=== PATIENT | male | born 1955 | race Caucasian/White ===

== ENCOUNTER 2017-06-28 16:13 | Observation (INO) | payer OTHER ==
[~2017-06-28] VITALS: Ht 180.3 cm; Wt 79.4 kg
--- NOTE | 2017-06-28 16:31 | ED GI/GU/ABDOMINAL COMPLAINT ---
History of Present Illness General Chief Complaint: Abdominal Pain/Flank Pain Stated Complaint: SENT IN BY FOR APPENDICITIS Source: patient, old records Exam Limitations: no limitations Vital Signs & Intake/Output Vital Signs & Intake/Output Vital Signs Date Time Temp Pulse Resp B/P B/P Pulse O2 O2 Flow FiO2 Mean Ox Delivery Rate 06/28 1725 96 Room Air 06/28 1623 98.3 63 18 166/82 98 Room Air Allergies Coded Allergies: No Known Allergies (06/28/17) Triage Note: PATIENT TO ER SENT BY DR. BERNAL FOR +APPY ON CT SCAN TODAY. Triage Nurses Notes Reviewed? yes Onset: Abrupt Duration: day(s): (2-3), changing over time, continues in ED Timing: single episode today Quality/Severity: stabbing Severity Numbers: 6 Location: right lower quadrant Radiation: no radiation Activities at Onset: none Prior Abdominal Problems: none Past Sexual History: Unobtainable at this time Modifying Factors: Worsens With: movement, palpation. Associated Symptoms: abdominal pain HPI: 61-year-old male past medical history of hypertension, atrial fibrillation not on anticoagulation presents for evaluation of right lower quadrant abdominal pain. Patient states he developed the pain about 2 days ago and has been persistent. The pain is located in the right lower quadrant does not radiate. Described as sharp and stabbing. The pain is present with movement of the trunk and walking it resolves with laying down. No nausea vomiting or diarrhea. No recent surgery no fever. Has not taken any medicine for this. He last ate at 6 AM this morning. He has been taking ibuprofen with minimal improvement. (Zana Walton) Past History Travel History Traveled to [place] past 21 day No Medical History Any Pertinent Medical History? see below for history Cardiovascular: AFIB, hypertension, hyperlipidemia Gastrointestinal: Crohn's disease Surgical History Surgical History: non-contributory Psychosocial History Who do you live with Family Services at Home None What is your primary language Sammarinese Tobacco Use: Never used Family History Hx Contributory? No (Zana Walton) Review of Systems Review of Systems Constitutional: Reports: no symptoms. EENTM: Reports: no symptoms. Respiratory: Reports: no symptoms. Cardiovascular: Reports: no symptoms. GI: Reports: see HPI, abdominal pain. Genitourinary: Reports: no symptoms. Musculoskeletal: Reports: no symptoms. Skin: Reports: no symptoms. Neurological/Psychological: Reports: no symptoms. Hematologic/Endocrine: Reports: no symptoms. Immunologic/Allergic: Reports: no symptoms. All Other Systems: Reviewed and Negative (Zana Walton) Physical Exam Physical Exam General Appearance: well developed/nourished, no apparent distress, alert, awake Head: atraumatic, normal appearance Eyes: Bilateral: normal appearance, PERRL, EOMI. Ears, Nose, Throat, Mouth: hearing grossly normal, moist mucous membrane Neck: normal inspection, supple, full range of motion Respiratory: normal breath sounds, chest non-tender, no respiratory distress, lungs clear Cardiovascular: regular rate/rhythm, normal peripheral pulses Peripheral Pulses: 2+ radial (R), 2+ radial (L) Gastrointestinal: normal bowel sounds, soft, no organomegaly, tenderness (rlq) Back: normal inspection, normal range of motion, no vertebral tenderness Extremities: normal range of motion Neurologic/Psych: no motor/sensory deficits, awake, alert, oriented x 3, normal gait Skin: intact, normal color, warm/dry Core Measures ACS in differential dx? No Sepsis Present: No Sepsis Focused Exam Completed? No (Zana Walton) Progress Differential Diagnosis: appendicitis, biliary colic, bowel obstruction, cholecystitis, diverticulitis, ischemic bowel, inflamm bowel dis, pancreatitis, prostatitis, peptic ulcer, PUD/GERD, STD, ureterolithiasis, urinary retention, urethritis, UTI/pyelo Plan of Care: Orders Procedure Date/time Status Place in observation 06/28 2028 Active Add-on Test (ER Only) 06/28 1655 Active EKG 06/28 1655 Active Add-on Test (ER Only) 06/28 1644 Active Add-on Test (ER Only) 06/28 1632 Active URINALYSIS 06/28 1622 Complete TROPONIN LEVEL 06/28 162 Complete PARTIAL THROMBOPLASTIN TIME 06/28 1622 Complete PROTHROMBIN TIME 06/28 1622 Complete LACTIC ACID 06/28 1622 Complete C-REACTIVE PROTEIN 06/28 1622 Complete COMPREHENSIVE METABOLIC PANEL 06/28 1622 Complete CBC WITHOUT DIFFERENTIAL 06/28 1622 Complete TYPE & SCREEN (NOT X-MATCH) 06/28 1622 Complete Laboratory Tests 06/28/17 1922: Lactic Acid Cancelled 06/28/17 1659: Urine Color YEL, Urine Clarity CLEAR, Urine pH 7.0, Ur Specific [place] 1.010, Urine Protein NEG, Urine Ketones 15 H, Urine Nitrite NEG, Urine Bilirubin NEG, Urine Urobilinogen 0.2, Ur Leukocyte Esterase NEG, Ur Microscopic SEDIMENT EXAMINED, Urine RBC 5-10 H, Urine WBC 1-3 H, Ur Epithelial Cells RARE, Urine Bacteria MOD H, Urine Hemoglobin SMALL H, Urine Glucose NEG 06/28/17 1650: Anion Gap 12, Estimated GFR > 60, BUN/Creatinine Ratio 21.3, Glucose 87, Lactic Acid 1.0, Calcium 8.9, Total Bilirubin 1.4 H, AST 26, ALT 34, Alkaline Phosphatase 49, Troponin I < 0.01, C-Reactive Prot, Quant 5.5 H, Total Protein 7.1, Albumin 4.5, Globulin 2.6, Albumin/Globulin Ratio 1.7, PT 12.4, INR 1.14, APTT 30, CBC w Diff NO MAN DIFF REQ, RBC 4.63 L, MCV 85.2, MCH 28.0, MCHC 32.8 L, RDW 13.4, MPV 7.7, Gran % 66.7, Lymphocytes % 20.8, Monocytes % 9.9 H, Eosinophils % 2.3, Basophils % 0.3, Absolute Granulocytes 5.6, Absolute Lymphocytes 1.8, Absolute Monocytes 0.8 H, Absolute Eosinophils 0.2, Absolute Basophils 0 Patient seen and evaluated. He had an outpatient CT scan done today that showed evidence of acute appendicitis. Patient does have right lower quadrant tenderness. vitasl signs are stable. We'll check preop labs because surgery. Patient declines any pain medication at this time. Blood was inserted acute findings. NO white count. Spoke with Dr. COONEY from surgery. They'll be admitting the patient for observation. Patient was started on Rocephin and Flagyl. he DECLINES pain medication. Diagnostic Imaging: Viewed by Me: CT Scan. Discussed w/RAD: CT Scan. Radiology Impression: PATIENT: RONNY SAMANO PRESENT AGE: 61 PATIENT ACCOUNT NO: [id number] : 55 LOCATION: [facility].CT ORDERING PHYSICIAN: Popeye Bernal MD SERVICE DATE: 06/28/17 EXAM TYPE: CAT - CT ABD & PELVIS W IV CONTRAST EXAMINATION: CT ABDOMEN AND PELVIS WITH CONTRAST CLINICAL INFORMATION: Right lower quadrant pain for 3 days. Rebound and guarding. COMPARISON: No recent, relevant comparisons available. TECHNIQUE: Multidetector volumetric imaging was performed of the abdomen and pelvis following IV administration of 94 mL of Optiray 320 intravenous contrast. Sagittal and coronal reformatted images were obtained on the technologist's workstation. DLP: 790 mGy-cm FINDINGS: LUNG BASES: Minimal atelectasis in the visualized lung bases. LIVER, GALLBLADDER, AND BILIARY TREE: Liver has normal size and contour. Several scattered hepatic cysts, largest in the left lobe measuring 1.5 cm. Gallbladder is unremarkable. No intrahepatic or extrahepatic bile duct dilatation. PANCREAS: Unremarkable. SPLEEN: Unremarkable. ADRENAL GLANDS: Unremarkable. KIDNEYS, URETERS AND BLADDER: Kidneys are normal in size and enhance symmetrically. There are peripelvic cysts of the left kidney. A well -circumscribed 2.4 x 2.2 cm lesion at the upper pole of the right kidney has attenuation of approximately 60 Hounsfield units on these contrast-enhanced images. This could represent a hyperdense cyst (rather than a solid lesion) but it is not properly characterized on this examination. There are a few other small, bilateral hypodense renal cortical foci that are likely cysts but are too small for characterization. The ureters and urinary bladder unremarkable. GASTROINTESTINAL TRACT: Bowel loops are normal in caliber. The wall of the proximal appendix is thickened, where it arises from the cecum. More specifically, the proximal portion of the appendix measures 1.3 cm diameter. Small amount of fluid is present within the lumen of the appendix which, near its tip, measures 0.7 cm diameter. There is mild fat stranding around the base of the appendix/cecum, and a pericecal lymph node is 0.6 cm short axis dimension. Mild diverticulosis of the sigmoid colon without diverticulitis. ABDOMINAL WALL: The patient is status post left inguinal hernia repair. Superior to the level of the umbilicus, there is a midline fat-containing hernia. The fascial defect measures 1.3 cm diameter and the fat-containing hernia sac is 3.8 cm transverse, 1.9 cm AP and 2.7 cm craniocaudal. LYMPH NODES: No lymphadenopathy within the abdomen or pelvis on the basis of size criteria. VASCULAR: Atherosclerotic calcification of the abdominal aorta and iliac arteries without aneurysm. PELVIC VISCERA: Prostate gland is 4.9 cm transverse, 4.4 cm AP. No pelvic free fluid. OSSEOUS STRUCTURES: L2-L3 degenerative disc disease as manifest by loss of disc space, vacuum disc phenomenon, endplate irregularity, mild disc bulge and osteophyte formation. No suspicious osseous lesions. IMPRESSION: 1. The imaging findings are compatible with diagnosis of acute appendicitis. 2. A 2.4 x 2.2 cm lesion at the upper pole the right kidney with attenuation of 60 Hounsfield units could represent a hyperdense cyst rather than a solid mass. Recommend follow-up with renal ultrasound. 3. Small fat- containing midline abdominal wall hernia. The acute/critical test result was discussed with Dr. Bernal at 3:12 pm on 06/28/2017 and it was ascertained that the content and the importance of the findings was understood at the time of the direct communication. DICTATED BY: José Miguel Wilkerson MD DATE/TIME DICTATED:1457 LOAN ORIGINATOR:VLADIMIR DATE/TIME TRANSCRIBED:06/28/171457 CONFIDENTIAL, DO NOT COPY WITHOUT APPROPRIATE AUTHORIZATION. Initial ED EKG: normal sinus rhythm, LEFT ATRIAL ABN (Zana Walton) Departure Departure Disposition: STILL A PATIENT Condition: Stable Clinical Impression Primary Impression: Acute appendicitis Qualifiers: Acute appendicitis type: other Qualified Code: K35.89 - Other acute appendicitis Referrals: Gabe LYON,Popeye Bajwa (PCP/Family) Departure Forms: Customer Survey General Discharge Information Admission Note Spoke With: Maicol LYON,Jorge A N. Documentation of Exam: Documentation of any treatments & extenuating circumstances including Concerns Regarding Discharge (functional status, medication knowledge or non-compliance, living conditions, etc.) that warrant an admission rather than observation: [ Serial labs, IV antibiotics, surgical consult, serial abdominal exams, monitoring vital signs, IV fluids, nothing by mouth, IV pain meds] (Zana Walton) PA/BRIDGE CRANE OPERATOR Co-Sign Statement Statement: ED Attending supervision documentation- [X] I saw and evaluated the patient. I have also reviewed all the pertinent lab results and diagnostic results. I agree with the findings and the plan of care as documented in the PA's/BRIDGE CRANE OPERATOR's documentation. [X] I have reviewed the ED Record and agree with the PA's/BRIDGE CRANE OPERATOR's documentation. [] Additions or exceptions (if any) to the PAs/BRIDGE CRANE OPERATOR's note and plan are summarized below: [Patient to be placed in a surgical observation for serial exams. Patient might require an appendectomy.] (Homero LYON,Salvatore Earl)
[2017-06-28 17:12] LABS: ABSOLUTE BASOPHIL COUNT 0 /CUMM (0.0-0.2); ABSOLUTE EOSINOPHIL COUNT 0.2 /CUMM (0.0-0.7); ABSOLUTE GRANULOCYTE CT 5.6 /CUMM (1.4-6.5); ABSOLUTE LYMPH COUNT 1.8 /CUMM (1.2-3.4); ABSOLUTE MONOCYTE COUNT 0.8 /CUMM (0.10-0.60); BASOPHIL % 0.3 % (0.0-2.0); EOSINOPHIL % 2.3 % (0-5); GRANULOCYTE % 66.7 % (42.2-75.2); HEMATOCRIT 39.5 % (42-52); MEAN CORPUSCULAR HGB CONC 32.8 G/DL (33.0-37.0); MEAN CORPUSCULAR VOLUME 85.2 FL (80.0-94.0); MEAN PLATELET VOLUME 7.7 FL (7.4-10.4); PLATELET COUNT 312 /CUMM (130-400); RBC DISTRIBUTION WIDTH 13.4 % (11.5-14.5); RED BLOOD CELL CT 4.63 /CUMM (4.70-6.10); WHITE BLOOD CELL COUNT 8.4 /CUMM (4.8-10.8)
[2017-06-28 17:23] LABS: PT 12.4 SEC (9.4-12.5); PTT 30 SEC (25-37)
--- NOTE | 2017-06-28 20:05 | History & Physical Pre-Op ---
General Information and HPI History of Present Illness: To be completed Chief complaint: Otherwise healthy 61-year-old non-smoker nondiabetic with a history of right sided kidney stone, comes in with 4 days of right lower quadrant pain it started in the right lower quadrant it was not preceded by generalized abdominal discomfort or bloating, he has a history of inguinal hernias and initially thought that is what it was, there was no associated nausea fevers sweats he has been having normal bowel movements even tolerating diet in the interim pain was the worst yesterday it does not radiate he does not have it at rest it is only on movement when lifting or getting up and out of a chair or bed no dysuria no bleeding per rectum he has a remote history of Crohn' s disease in his 20s which at that time was associated with bloody diarrhea. Otherwise no changes in bowel habits weight or appetite the PFSH and ROS are reviewed there is no history of heart disease bleeding problems or problems with anesthesia. Not sure if there is a family history of Crohn's or similar disease., There is no family history of appendicitis, no Hx of abdominal surgery. Allergies/Medications Allergies: Coded Allergies: No Known Allergies (06/28/17) Home Med list Ciprofloxacin HCl (Cipro) 500 MG TABLET 1 TAB PO BID ileitis Metronidazole (Flagyl) 500 MG TABLET 1 TAB PO TID ileitis do not take with alcohol Past History Medical History Cardiovascular: AFIB, hypertension, hyperlipidemia Gastrointestinal: Crohn's disease Surgical History Pertinent Surgical History: none (no abdominal) Past Family/Social History Psychosocial History Services at Home None Review of Systems Review of Systems: Constitutional: No fever, sweats or weight loss ENMT: No sore throat Cardiovascular: No chest pain, palpitations or leg swelling Respiratory: No shortness of breath, cough, or sputum or dyspnea on exertion GI: No GERD or bleeding per rectum : No dysuria or hematuria Musculoskeletal: No new muscle weakness, bone or joint pain Skin / Breast: No jaundice, rashes or itching Psychiatric: No history of drug or alcohol abuse no depression or anxiety Hematologic / lymphatic system: No problems with excessive bleeding, bruising, or blood clots Exam & Diagnostic Data Last 24 Hrs of Vital Signs/I&O I rev Vital Signs Date Time Temp Pulse Resp B/P B/P Pulse O2 O2 Flow FiO2 Mean Ox Delivery Rate 06/28 1725 96 Room Air 06/28 1623 98.3 63 18 166/82 98 Room Air Physical Exam: Constitutional: pleasant, no acute distress, conversant Eyes: sclera anicteric ENMT: ears and nose atraumatic, moist mucous membranes, good dentition, no lip lesions Neck: Supple, trachea is midline, no cervical or supraclavicular adenopathy and no palpable thyromegaly Cardiovascular: S1, S2, no murmurs, no peripheral edema Respiratory: clear to auscultation with normal respiratory effort and no intercostal retractions GI: abdomen soft, minimal right lower quadrant tenderness to deep palpation no rebound no guarding, nondistended, no palpable hepatosplenomegaly Extremities / lymphatics: symmetrically warm, free range of motion no peripheral edema, no cervical, supraclavicular, axillary, or inguinal adenopathy Musculoskeletal: Did not evaluate gait and station, no digital cyanosis, good muscle strength and tone no atrophy, motor grossly 5 out of 5 throughout Skin: no jaundice, no rashes warm, nondiaphoretic, no areas of erythema or induration Psychiatric: mood and affect are appropriate and alert and oriented to person place and time Last 24 Hrs of Labs/Mateo: I rev Laboratory Tests 06/28/17 1922: Lactic Acid Cancelled 06/28/17 1659: Urine Color YEL, Urine Clarity CLEAR, Urine pH 7.0, Ur Specific [place] 1.010, Urine Protein NEG, Urine Ketones 15 H, Urine Nitrite NEG, Urine Bilirubin NEG, Urine Urobilinogen 0.2, Ur Leukocyte Esterase NEG, Ur Microscopic SEDIMENT EXAMINED, Urine RBC 5-10 H, Urine WBC 1-3 H, Ur Epithelial Cells RARE, Urine Bacteria MOD H, Urine Hemoglobin SMALL H, Urine Glucose NEG 06/28/17 1650: Anion Gap 12, Estimated GFR > 60, BUN/Creatinine Ratio 21.3, Glucose 87, Lactic Acid 1.0, Calcium 8.9, Total Bilirubin 1.4 H, AST 26, ALT 34, Alkaline Phosphatase 49, Troponin I < 0.01, C-Reactive Prot, Quant 5.5 H, Total Protein 7.1, Albumin 4.5, Globulin 2.6, Albumin/Globulin Ratio 1.7, PT 12.4, INR 1.14, APTT 30, CBC w Diff NO MAN DIFF REQ, RBC 4.63 L, MCV 85.2, MCH 28.0, MCHC 32.8 L, RDW 13.4, MPV 7.7, Gran % 66.7, Lymphocytes % 20.8, Monocytes % 9.9 H, Eosinophils % 2.3, Basophils % 0.3, Absolute Granulocytes 5.6, Absolute Lymphocytes 1.8, Absolute Monocytes 0.8 H, Absolute Eosinophils 0.2, Absolute Basophils 0 Assessment/Plan Assessment/Plan: Impression: RLQ pain and inflamed appendix BUT several features not typical of acute appendicitis. Except for the location of the pain, no leukocytosis or GI symptoms or fever, and by 4 days most appendicitis has progressed to phlegmon rupture or evolving abscess. Also in 2007 he had a colonoscopy showing inflammation in that area. I reviewed on PACS myself the CT scan from to, it shows most of the inflammation at the base and into the cecum the adjacent terminal ileum also has a little bit of wall thickening not as much usually the epicenter of appendicitis is distal to the base even so, we will admit him for observation given IV antibiotics reevaluate if his pain worsens, recheck labs and consult gastroenterology As Ranked By This Provider Problem List: 1. Right lower quadrant abdominal pain 2. Colitis
[2017-06-28 22:00] VITALS: BP 132/82
[2017-06-29 06:51] VITALS: BP 140/80
[2017-06-29 08:37] LABS: ABSOLUTE BASOPHIL COUNT 0 /CUMM (0.0-0.2); ABSOLUTE EOSINOPHIL COUNT 0.2 /CUMM (0.0-0.7); ABSOLUTE GRANULOCYTE CT 4.8 /CUMM (1.4-6.5); ABSOLUTE LYMPH COUNT 1.2 /CUMM (1.2-3.4); ABSOLUTE MONOCYTE COUNT 0.6 /CUMM (0.10-0.60); BASOPHIL % 0.2 % (0.0-2.0); EOSINOPHIL % 2.9 % (0-5); HEMATOCRIT 39.5 % (42-52); MEAN CORPUSCULAR HGB 28.2 PG (27.0-31.0); MEAN CORPUSCULAR HGB CONC 33.1 G/DL (33.0-37.0); MEAN CORPUSCULAR VOLUME 85.2 FL (80.0-94.0); MEAN PLATELET VOLUME 7.8 FL (7.4-10.4); PLATELET COUNT 295 /CUMM (130-400); RBC DISTRIBUTION WIDTH 13.2 % (11.5-14.5); RED BLOOD CELL CT 4.64 /CUMM (4.70-6.10); WHITE BLOOD CELL COUNT 6.9 /CUMM (4.8-10.8)
--- NOTE | 2017-06-29 08:39 | PN- General Surgery ---
See Addendum Subjective Subjective: PT IN BED, ABD PAIN MUCH BETTER TODAY. NO NAUSEA/VOMITING. TOLERATING CLEARS. REG BM THIS MORNING. NO FEVERS. Objective Vital Signs and I&Os Vital Signs Date Time Temp Pulse Resp B/P B/P Pulse O2 O2 Flow FiO2 Mean Ox Delivery Rate 06/30 803 140/80 / 0803 140/80 / 0803 140/80 / 0651 97.6 65 20 140/80 98 Room Air 06/28 2200 98.6 59 18 132/82 97 Room Air / 2051 98.6 65 16 135/74 96 Room Air 06/28 1725 96 Room Air 06/28 1623 98.3 63 18 166/82 98 Room Air Intake & Output 06/29 0000 06/28 1600 06/28 0000 Intake Total 920 1320 Output Total Balance 920 1320 Intake, IV 800 1200 Intake, Oral 120 120 Patient 175 lb Weight Weight Reported by Patient Measurement Method Physical Exam: GEN- NAD RESP- CLEAR CARDIAC- RRR ABD- ND, +BS, SOFT, TENDER IN RLQ, NO REBOUND EXT- NO EDEMA, WARM AND DRY Current Medications: Current Medications Sig/Malvin Start time Last Medication Dose Route Stop Time Status Admin Acetaminophen 650 MG Q6PRN PRN 06/28 2099 AC 06/29 PO 0803 Amlodipine Besylate 5 MG DAILY 06/29 899 AC 06/29 PO 0803 Atenolol 50 MG DAILY 06/29 899 AC 06/29 PO 0804 Ceftriaxone Sodium 1,000 MG DAILY 06/29 899 AC IV Ceftriaxone Sodium 0 .STK-MED ONE 06/28 1714 DC .ROUTE Ceftriaxone Sodium 1,000 MG ONCE ONE 06/28 1630 DC 06/28 IV 06/28 1631 1719 Dextrose/Sodium 1,000 ML .Q10H 06/28 2100 AC 06/28 Chloride IV 2129 Heparin Sodium 5,000 UNIT Q8 06/28 2200 AC 06/28 (Porcine) SC 2129 Heparin Sodium 0 .STK-MED ONE 06/28 212 DC (Porcine) .ROUTE Lisinopril 20 MG DAILY 06/29 899 AC 06/29 PO 0803 Metronidazole 500 MG IQ8 06/29 0000 AC 06/29 N/A 1 UNIT IV 0804 Metronidazole 500 MG ONCE ONE 06/28 1630 DC 06/28 N/A 1 UNIT IV 06/28 1729 1719 Morphine Sulfate 2 MG Q3P PRN 06/28 2100 AC IV Ondansetron HCl 4 MG Q8P PRN 06/28 2100 AC IV Pantoprazole Sodium 40 MG DAILY 06/29 0900 AC IV Sodium Chloride 1,000 ML BOLUS ONE 06/28 1630 DC 06/28 IV 06/28 1729 1723 Results Last 48 Hours of Labs: Laboratory Tests 06/29 06/28 06/28 0747 1922 1659 Chemistry Sodium Pending Potassium Pending Chloride Pending Carbon Dioxide Pending Anion Gap Pending BUN Pending Creatinine Pending BUN/Creatinine Ratio Pending Lactic Acid Cancelled Hematology CBC w Diff Pending WBC Pending RBC Pending Hgb Pending Hct Pending MCV Pending MCH Pending MCHC Pending RDW Pending Plt Count Pending MPV Pending Urines Urine Color (YEL,AMB,STR) YEL Urine Clarity (CLEAR) CLEAR Urine pH (5.0 - 8.0) 7.0 Ur Specific [place] (1.001 - 1.035) 1.010 Urine Protein (NEG,<30 MG/DL) NEG Urine Ketones (NEG) 15 H Urine Nitrite (NEG) NEG Urine Bilirubin (NEG) NEG Urine Urobilinogen (0.1 - 1.0 EU/dl) 0.2 Ur Leukocyte Esterase (NEG) NEG Ur Microscopic SEDIMENT EXAMINED Urine RBC (0 - 5 /HPF) 5-10 H Urine WBC (0 - 2 /HPF) 1-3 H Ur Epithelial Cells (NONE,FEW) RARE Urine Bacteria (NEG/NONE) MOD H Urine Hemoglobin (NEG) SMALL H Urine Glucose (N MG/DL) NEG 06/28 1649 Chemistry Sodium (137 - 145 mmol/L) 140 Potassium (3.5 - 5.1 mmol/L) 4.0 Chloride (98 - 107 mmol/L) 100 Carbon Dioxide (22 - 30 mmol/L) 28 Anion Gap (5 - 16) 12 BUN (9 - 20 mg/dL) 17 Creatinine (0.7 - 1.2 mg/dL) 0.8 Estimated GFR (>60 ml/min) > 60 BUN/Creatinine Ratio (7 - 25 %) 21.3 Glucose (65 - 99 mg/dL) 87 Lactic Acid (0.7 - 2.1 mmol/L) 1.0 Calcium (8.4 - 10.2 mg/dL) 8.9 Total Bilirubin (0.2 - 1.3 mg/dL) 1.4 H AST (17 - 59 U/L) 26 ALT (21 - 72 U/L) 34 Alkaline Phosphatase (< 127 U/L) 49 Troponin I (<0.11 ng/ml) < 0.01 C-Reactive Prot, Quant (<1.0 mg/dL) 5.5 H Total Protein (6.3 - 8.2 g/dL) 7.1 Albumin (3.5 - 5.0 g/dL) 4.5 Globulin (1.9 - 4.2 gm/dL) 2.6 Albumin/Globulin Ratio (1.1 - 2.2 %) 1.7 Coagulation PT (9.4 - 12.5 SEC) 12.4 INR (0.90 - 1.17) 1.14 APTT (25 - 37 SEC) 30 Hematology CBC w Diff NO MAN DIFF REQ WBC (4.8 - 10.8 /CUMM) 8.4 RBC (4.70 - 6.10 /CUMM) 4.63 L Hgb (14.0 - 18.0 G/DL) 13.0 L Hct (42 - 52 %) 39.5 L MCV (80.0 - 94.0 FL) 85.2 MCH (27.0 - 31.0 PG) 28.0 MCHC (33.0 - 37.0 G/DL) 32.8 L RDW (11.5 - 14.5 %) 13.4 Plt Count (130 - 400 /CUMM) 312 MPV (7.4 - 10.4 FL) 7.7 Gran % (42.2 - 75.2 %) 66.7 Lymphocytes % (20.5 - 51.1 %) 20.8 Monocytes % (1.7 - 9.3 %) 9.9 H Eosinophils % (0 - 5 %) 2.3 Basophils % (0.0 - 2.0 %) 0.3 Absolute Granulocytes (1.4 - 6.5 /CUMM) 5.6 Absolute Lymphocytes (1.2 - 3.4 /CUMM) 1.8 Absolute Monocytes (0.10 - 0.60 /CUMM) 0.8 H Absolute Eosinophils (0.0 - 0.7 /CUMM) 0.2 Absolute Basophils (0.0 - 0.2 /CUMM) 0 Assessment/Plan Assessment/Plan 61YO M WITH RLQ PAIN, APPENDICITIS VS CROHNS. CT SHOWS INFALMATION AT BASE OF APPENDIX AND CECUM. CURRENTLY ON ROCEPHIN AND FLAGYL. PAIN LESS TODAY. CONT ABX AWAITING AM LABS CONSIDERING GI CONSULT TODAY, MAY NEED COLONOSCOPY NPO UNTIL DECISION IS MADE FOR SURGERY OR NOT TODAY CONT IVF DVT PPAX- HSQ, ALPS OOB WILL DISCUSS WITH DR STODDARD Core Measures Venous Thromboembolism VTE Risk Factors Immobility No Mechanical VTE Prophylaxis d/t N/A MechProphylax Ordered No VTE Pharm Prophylaxis d/t NA PharmProphylax ordered
[2017-06-29 14:05] VITALS: BP 120/70
--- NOTE | 2017-06-29 14:55 | Patient Discharge Instructions ---
Discharge Instructions General Discharge Information You were seen/treated for: abdominal pain, r/o appendicitis, possible crohns related ileitis right upper pole renal cyst, incidentally seen by CT You had these procedures: conservative treatment Watch for these problems: fever>101.3, increased pain, nausea/vomiting, dizziness, shortness of breath, chest pains Diet Continue normal diet: Yes Recommended Diet: Regular Activity Full Activity/No Limits: Yes Activity Self Limited: Yes Acute Coronary Syndrome Inclusion Criteria At DC or during hospital stay patient has or had the following: ACS DIAGNOSIS No Discharge Core Measures Meds if any: Prescribed or Continued at Discharge Meds if any: NOT Prescribed or Continued at Discharge Congestive Heart Failure Inclusion Criteria At DC or during hospital stay patient has or had the following: CHF DIAGNOSIS No Discharge Core Measures Meds if any: Prescribed or Continued at Discharge Meds if any: NOT Prescribed or Continued at Discharge Cerebrovascular accident Inclusion Criteria At DC or during hospital stay patient has or had the following: CVA/TIA Diagnosis No Discharge Core Measures Meds if any: Prescribed or Continued at Discharge Meds if any: NOT Prescribed or Continued at Discharge Venous thromboembolism Inclusion Criteria VTE Diagnosis No VTE Type NONE VTE Confirmed by (Test) NONE Discharge Core Measures - Per Current guidelines, there needs to be overlap - treatment for the first 5 days of Warfarin therapy. - If discharged on Warfarin prior to 5 days of - overlap therapy, the patient will need to be - assessed for post discharge needs including - *Post discharge parental anticoagulation - *Warfarin and/or parental anticoagulation education - *Follow up date to check INR post discharge At least 5 days overlap therapy as Inpatient No Meds if any: Prescribed or Continued at Discharge Note: Overlap Therapy is Warfarin and Anticoagulant Meds if any: NOT Prescribed or Continued at Discharge
[2017-06-29] MEDS ORDERED: FLAGYL500 MG PO (15:04)
[2017-06-29] MEDS ORDERED: CIPRO500 M1 PO (15:04)
--- NOTE | 2017-06-29 17:18 | Cons- Gastroenterology ---
General Information and HPI Consulting Request Date of Consult: 06/29/17 Requested By: Maicol LYON,Jorge A Hicks Reason for Consult: 1. Abdominal Pain 2. Abnormal CT Scan of the Abdomen and Pelvis Source of Information: patient, Electronic Medical Record Exam Limitations: no limitations History of Present Illness: Mr. Robison is a 61 year old male with a remote history of Crohn's Disease. He reports that in his twenties he was diagnosed with Crohn's Disease. He had at that time chronic bloody diarrhea that was treated with steroids over a period of about 2 or 3 years. He does not know whether he had Crohn's Disease of the Small Intestine or Colon. Mr. Robison was in his usual state of health until last when he developed white lower quadrant pain which increased in severity gradually until Wednesday. He reports that he had no pain when he was laying down however when he stood up the pain was worse. He took Advil on Wednesday and by Wednesday morning he felt fine. He went to work however he started lifting pain cans and the abdominal pain returned. He had no associated nausea, vomiting, fever, or shaking chills. He had been completely well until when the pain began. He had had no premonitory symptoms and no diarrhea. He had a colonoscopy in 2007 which showed some mild ileitis and a cecal polyp without any adenomatous change. On biopsy of the ileitis he was found to have chronic and acute inflammation with surface erosion and moderate reactive atypia as well as fib were no purulent exudate. There were no crypt abscesses noted. March 2016 he had a normal H&H of 14.3 and 42.8. He went to his primary care physician who ordered a CT scan that was done at [facility] as well as laboratory studies. He had WBC of 6.9, H&H of 13.1/39.5 and platelets of 295,000. CRP was 5.5 and CMP was normal with the exception of a total bilirubin of 1.4. At [facility] he was told that he had appendicitis would need to be seen by a surgeon at [facility]. We are asked to see Mr. Robison in consultation by Dr. Jarquin for evaluation of RLQ pain and an abnormal CT Scan. The results of that CT Scan are as follows: Addendum: This patient has a history of Crohn disease. It should be noted that the fat stranding in the right lower quadrant is primarily located around the collapsed cecum and base of the appendix. The appendiceal wall is abnormally thickened at its junction with the cecum, but this could be reactive to cecal inflammation from Crohn disease. The appendiceal lumen contains some gas and fluid, and the appendix tapers in diameter as it approaches its tip. There is mild circumferential wall thickening of the terminal ileum, but no overt edema in the bowel wall or fat stranding around the ileum. The inflammatory changes in the right lower quadrant could reflect a flare of patient's inflammatory bowel disease in the cecum rather than acute appendicitis. Addendum Signed by: José Miguel Wilkerson MD 06/28/17 [id number] EXAMINATION: CT ABDOMEN AND PELVIS WITH CONTRAST CLINICAL INFORMATION: Right lower quadrant pain for 3 days. Rebound and guarding. FINDINGS: LUNG BASES: Minimal atelectasis in the visualized lung bases. LIVER, GALLBLADDER, AND BILIARY TREE: Liver has normal size and contour. Several scattered hepatic cysts, largest in the left lobe measuring 1.5 cm. Gallbladder is unremarkable. No intrahepatic or extrahepatic bile duct dilatation. PANCREAS: Unremarkable. SPLEEN: Unremarkable. ADRENAL GLANDS: Unremarkable. KIDNEYS, URETERS AND BLADDER: Kidneys are normal in size and enhance symmetrically. There are peripelvic cysts of the left kidney. A well-circumscribed 2.4 x 2.2 cm lesion at the upper pole of the right kidney has attenuation of approximately 60 Hounsfield units on these contrast-enhanced images. This could represent a hyperdense cyst (rather than a solid lesion) but it is not properly characterized on this examination. There are a few other small, bilateral hypodense renal cortical foci that are likely cysts but are too small for characterization. The ureters and urinary bladder unremarkable. GASTROINTESTINAL TRACT: Bowel loops are normal in caliber. The wall of the proximal appendix is thickened, where it arises from the cecum. More specifically, the proximal portion of the appendix measures 1.3 cm diameter. Small amount of fluid is present within the lumen of the appendix which, near its tip, measures 0.7 cm diameter. There is mild fat stranding around the base of the appendix/cecum, and a pericecal lymph node is 0.6 cm short axis dimension. Mild diverticulosis of the sigmoid colon without diverticulitis. ABDOMINAL WALL: The patient is status post left inguinal hernia repair. Superior to the level of the umbilicus, there is a midline fat-containing hernia. The fascial defect measures 1.3 cm diameter and the fat-containing hernia sac is 3.8 cm transverse, 1.9 cm AP and 2.7 cm craniocaudal. LYMPH NODES: No lymphadenopathy within the abdomen or pelvis on the basis of size criteria. VASCULAR: Atherosclerotic calcification of the abdominal aorta and iliac arteries without aneurysm. PELVIC VISCERA: Prostate gland is 4.9 cm transverse, 4.4 cm AP. No pelvic free fluid. OSSEOUS STRUCTURES: L2-L3 degenerative disc disease as manifest by loss of disc space, vacuum disc phenomenon, endplate irregularity, mild disc bulge and osteophyte formation. No suspicious osseous lesions. IMPRESSION: 1. The imaging findings are compatible with diagnosis of acute appendicitis. 2. A 2.4 x 2.2 cm lesion at the upper pole the right kidney with attenuation of 60 Hounsfield units could represent a hyperdense cyst rather than a solid mass. Recommend follow-up with renal ultrasound. 3. Small fat-containing midline abdominal wall hernia. Allergies/Medications Allergies: Coded Allergies: No Known Allergies (06/28/17) Home Med List: Ciprofloxacin HCl (Cipro) 500 MG TABLET 1 TAB PO BID ileitis Metronidazole (Flagyl) 500 MG TABLET 1 TAB PO TID ileitis do not take with alcohol Current Medications: Current Medications Sig/Malvin Start time Last Medication Dose Route Stop Time Status Admin Acetaminophen 650 MG .STK-MED ONE 06/29 0800 DC PO 06/29 0801 Acetaminophen 650 MG Q6PRN PRN 06/28 2100 AC 06/29 PO 0803 Amlodipine Besylate 5 MG DAILY 06/29 09 AC 06/29 PO 0803 Atenolol 50 MG DAILY 06/29 0900 AC 05 PO 0804 Ceftriaxone Sodium 1,000 MG DAILY@1700 /08 1700 AC /08 IV 1658 Ceftriaxone Sodium 1,000 MG DAILY 06/29 09 DC IV Ceftriaxone Sodium 0 .STK-MED ONE 06/28 1714 DC .ROUTE Dextrose/Sodium 1,000 ML .Q10H 06/28 2100 DC 06/28 Chloride IV 2129 Heparin Sodium 5,000 UNIT Q8 06/28 2200 AC 06/28 (Porcine) SC 212 Heparin Sodium 0 .STK-MED ONE 06/28 2125 DC (Porcine) .ROUTE Lisinopril 20 MG DAILY 06/29 899 AC 06/29 PO 0803 Metronidazole 500 MG IQ8 06/29 0000 AC 06/29 N/A 1 UNIT IV 1658 Metronidazole 500 MG ONCE ONE 06/28 1630 DC 06/28 N/A 1 UNIT IV 06/28 1729 1719 Morphine Sulfate 2 MG Q3P PRN 06/28 2100 AC IV Ondansetron HCl 4 MG Q8P PRN 06/28 2100 AC IV Pantoprazole Sodium 40 MG DAILY 06/29 899 AC 06/29 IV 1658 Sodium Chloride 1,000 ML BOLUS ONE 06/28 1630 DC 06/28 IV 06/28 1729 1723 Past History Travel History Traveled to [place] past 21 day No Medical History Blood Transfusion Hx: Yes Neurological: NONE EENT: NONE Cardiovascular: AFIB, hypertension, hyperlipidemia Respiratory: NONE Gastrointestinal: Crohn's disease Hepatic: NONE Renal: NONE Musculoskeletal: HERNIA-UMBILICAL Psychiatric: NONE Endocrine: NONE Blood Disorders: NONE Cancer(s): NONE 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 Cardiovascular: Reports: no symptoms. Respiratory: Reports: no symptoms. GI: Reports: see HPI. Genitourinary: Reports: no symptoms. Musculoskeletal: Reports: no symptoms. Skin: Reports: no symptoms. Neurological/Psychological: Reports: no symptoms. Hematologic/Endocrine: Reports: no symptoms. Exam & Diagnostic Data Vital Signs and I&O Vital Signs Date Time Temp Pulse Resp B/P B/P Pulse O2 O2 Flow FiO2 Mean Ox Delivery Rate 06/29 1405 98.1 62 20 120/70 96 Room Air 06/29 0804 140/80 06/29 0803 140/80 06/29 0803 140/80 06/29 0651 97.6 65 20 140/80 98 Room Air 06/28 2200 98.6 59 18 132/82 97 Room Air 06/28 2051 98.6 65 16 135/74 96 Room Air 06/28 1725 96 Room Air Intake & Output 06/29 1600 06/29 0400 06/28 1600 06/28 0400 06/27 1600 06/27 0400 Intake Total 3020 1320 Output Total Balance 3020 1320 Intake, IV 1000 1200 Intake, Oral 2020 120 Number 1 Bowel Movements Patient 175 lb Weight Weight Reported by Patient Measurement Method Physical Exam General Appearance: well developed/nourished, no apparent distress, alert, awake , anxious, comfortable Head: atraumatic, normal appearance Eyes: Bilateral: normal appearance. Ears, Nose, Throat: hearing grossly normal Neck: supple, full range of motion Respiratory: normal breath sounds, lungs clear Cardiovascular: regular rate/rhythm, normal S1 and S2 without rub, murmur, or gallop. Gastrointestinal: normal bowel sounds, soft, non-tender, no organomegaly, no rebound or guarding Extremities: no edema Neurologic/Psych: awake, alert, oriented x 3 Cranial Nerves: cranial nerves II through XII are grossly intact Skin: intact, normal color Results Pertinent Lab Results: Laboratory Tests 06/29 06/28 0747 1922 Chemistry Sodium (137 - 145 mmol/L) 140 Potassium (3.5 - 5.1 mmol/L) 4.4 Chloride (98 - 107 mmol/L) 102 Carbon Dioxide (22 - 30 mmol/L) 27 Anion Gap (5 - 16) 11 BUN (9 - 20 mg/dL) 12 Creatinine (0.7 - 1.2 mg/dL) 0.8 Estimated GFR (>60 ml/min) > 60 BUN/Creatinine Ratio (7 - 25 %) 15.0 Lactic Acid Cancelled Hematology CBC w Diff NO MAN DIFF REQ WBC (4.8 - 10.8 /CUMM) 6.9 RBC (4.70 - 6.10 /CUMM) 4.64 L Hgb (14.0 - 18.0 G/DL) 13.1 L Hct (42 - 52 %) 39.5 L MCV (80.0 - 94.0 FL) 85.2 MCH (27.0 - 31.0 PG) 28.2 MCHC (33.0 - 37.0 G/DL) 33.1 RDW (11.5 - 14.5 %) 13.2 Plt Count (130 - 400 /CUMM) 295 MPV (7.4 - 10.4 FL) 7.8 Gran % (42.2 - 75.2 %) 70.0 Lymphocytes % (20.5 - 51.1 %) 17.7 L Monocytes % (1.7 - 9.3 %) 9.2 Eosinophils % (0 - 5 %) 2.9 Basophils % (0.0 - 2.0 %) 0.2 Absolute Granulocytes (1.4 - 6.5 /CUMM) 4.8 Absolute Lymphocytes (1.2 - 3.4 /CUMM) 1.2 Absolute Monocytes (0.10 - 0.60 /CUMM) 0.6 Absolute Eosinophils (0.0 - 0.7 /CUMM) 0.2 Absolute Basophils (0.0 - 0.2 /CUMM) 0 06/28 06/28 1659 1650 Chemistry Sodium (137 - 145 mmol/L) 140 Potassium (3.5 - 5.1 mmol/L) 4.0 Chloride (98 - 107 mmol/L) 100 Carbon Dioxide (22 - 30 mmol/L) 28 Anion Gap (5 - 16) 12 BUN (9 - 20 mg/dL) 17 Creatinine (0.7 - 1.2 mg/dL) 0.8 Estimated GFR (>60 ml/min) > 60 BUN/Creatinine Ratio (7 - 25 %) 21.3 Glucose (65 - 99 mg/dL) 87 Lactic Acid (0.7 - 2.1 mmol/L) 1.0 Calcium (8.4 - 10.2 mg/dL) 8.9 Total Bilirubin (0.2 - 1.3 mg/dL) 1.4 H AST (17 - 59 U/L) 26 ALT (21 - 72 U/L) 34 Alkaline Phosphatase (< 127 U/L) 49 Troponin I (<0.11 ng/ml) < 0.01 C-Reactive Prot, Quant (<1.0 mg/dL) 5.5 H Total Protein (6.3 - 8.2 g/dL) 7.1 Albumin (3.5 - 5.0 g/dL) 4.5 Globulin (1.9 - 4.2 gm/dL) 2.6 Albumin/Globulin Ratio (1.1 - 2.2 %) 1.7 Coagulation PT (9.4 - 12.5 SEC) 12.4 INR (0.90 - 1.17) 1.14 APTT (25 - 37 SEC) 30 Hematology CBC w Diff NO MAN DIFF REQ WBC (4.8 - 10.8 /CUMM) 8.4 RBC (4.70 - 6.10 /CUMM) 4.63 L Hgb (14.0 - 18.0 G/DL) 13.0 L Hct (42 - 52 %) 39.5 L MCV (80.0 - 94.0 FL) 85.2 MCH (27.0 - 31.0 PG) 28.0 MCHC (33.0 - 37.0 G/DL) 32.8 L RDW (11.5 - 14.5 %) 13.4 Plt Count (130 - 400 /CUMM) 312 MPV (7.4 - 10.4 FL) 7.7 Gran % (42.2 - 75.2 %) 66.7 Lymphocytes % (20.5 - 51.1 %) 20.8 Monocytes % (1.7 - 9.3 %) 9.9 H Eosinophils % (0 - 5 %) 2.3 Basophils % (0.0 - 2.0 %) 0.3 Absolute Granulocytes (1.4 - 6.5 /CUMM) 5.6 Absolute Lymphocytes (1.2 - 3.4 /CUMM) 1.8 Absolute Monocytes (0.10 - 0.60 /CUMM) 0.8 H Absolute Eosinophils (0.0 - 0.7 /CUMM) 0.2 Absolute Basophils (0.0 - 0.2 /CUMM) 0 Urines Urine Color (YEL,AMB,STR) YEL Urine Clarity (CLEAR) CLEAR Urine pH (5.0 - 8.0) 7.0 Ur Specific [place] (1.001 - 1.035) 1.010 Urine Protein (NEG,<30 MG/DL) NEG Urine Ketones (NEG) 15 H Urine Nitrite (NEG) NEG Urine Bilirubin (NEG) NEG Urine Urobilinogen (0.1 - 1.0 EU/dl) 0.2 Ur Leukocyte Esterase (NEG) NEG Ur Microscopic SEDIMENT EXAMINED Urine RBC (0 - 5 /HPF) 5-10 H Urine WBC (0 - 2 /HPF) 1-3 H Ur Epithelial Cells (NONE,FEW) RARE Urine Bacteria (NEG/NONE) MOD H Urine Hemoglobin (NEG) SMALL H Urine Glucose (N MG/DL) NEG Assessment/Plan Assessment/Recommendations: ASSESSMENT: 1. Abnormal CT scan. There is thickening of the cecum with mild confidential thickening of the terminal ileum. This is certainly suggestive of Crohn's disease. An given appearance of the appendix less consistent with acute appendicitis 2. Remote history of Crohn's disease 3. Hypertension 4. Hyperlipidemia 5. Right lower quadrant pain Patient's onset of symptoms are somewhat atypical for Crohn's disease. In addition given his history of a 40 year remission as well as lack of premonitory GI symptoms prior to this raises some concern regarding etiology of current CT findings. RECOMMENDATIONS: 1. I've had a long discussion with the patient and his regarding possible etiologies for his right lower quadrant pain. I have explained that they may need further workup in order to arrive at an accurate diagnosis. I've explained to them that he may need a colonoscopy as well as possible MR enterography or small bowel follow-through. I've explained to them that I will not be available tomorrow and that they will be seen by Dr. Mane Cormier was wardsperson in the hospital. 2. I discussed this with Jorge A Milian MD and the surgical PA. 3. Patient will remain in the hospital overnight on a clear liquid diet. 4. He will maintain on IV antibiotics 5. Dr. Cormier will review CT findings with radiology. We will consider either outpatient workup, colonoscopy during this admission, small bowel follow- through, or other workup pending his review of patient's radiologic studies. All questions were answered to the patient and his 's satisfaction. Copies To: Gabe LYON,Popeye Bajwa Consult Acknowledgment - Thank you for your consult request.
[2017-06-29 23:11] VITALS: BP 121/68
[2017-06-30 07:18] VITALS: BP 138/83
[2017-06-30 08:42] LABS: ABSOLUTE BASOPHIL COUNT 0 /CUMM (0.0-0.2); ABSOLUTE EOSINOPHIL COUNT 0.3 /CUMM (0.0-0.7); ABSOLUTE GRANULOCYTE CT 4.1 /CUMM (1.4-6.5); ABSOLUTE LYMPH COUNT 1.1 /CUMM (1.2-3.4); ABSOLUTE MONOCYTE COUNT 0.6 /CUMM (0.10-0.60); BASOPHIL % 0.6 % (0.0-2.0); EOSINOPHIL % 4.2 % (0-5); GRANULOCYTE % 67.7 % (42.2-75.2); HEMATOCRIT 41.8 % (42-52); MEAN CORPUSCULAR HGB 27.7 PG (27.0-31.0); MEAN CORPUSCULAR HGB CONC 32.6 G/DL (33.0-37.0); MEAN CORPUSCULAR VOLUME 84.9 FL (80.0-94.0); MEAN PLATELET VOLUME 7.9 FL (7.4-10.4); PLATELET COUNT 317 /CUMM (130-400); RBC DISTRIBUTION WIDTH 13.3 % (11.5-14.5); RED BLOOD CELL CT 4.93 /CUMM (4.70-6.10); WHITE BLOOD CELL COUNT 6.1 /CUMM (4.8-10.8)
[2017-06-30 08:53] VITALS: BP 136/78
[2017-06-30] MEDS ORDERED: CIPRO500 M1 PO (10:32)
--- NOTE | 2017-06-30 17:00 | Discharge Summary ---
Visit Information Visit Dates Admission Date: 06/28/17 Discharge Date: 06/30/17 Hospital Course Course Attending Physician: Maicol LYON,Jorge A Hicks Primary Care Physician: Gabe LYON,Popeye Bajwa Hospital Course: Patient admitted 2 days ago with right lower quadrant pain inflammatory changes but the presentation labs history signs and symptoms were not typical of acute appendicitis only the location of the pain which was already improved so we started IV antibiotics and consult to gastroenterology especially since he's had a history of inflammation there before and a remote history of Crohn's disease. Otherwise his pain completely resolved the next day we started him on diet there were no fevers no sweats no nausea no vomiting and overnight this morning no new complaints he's moving his bowels no diarrhea no bleeding per rectum. Vital signs reviewed temperature 98.2 blood pressure 136/78 pulse 68 respirations 20 Constitutional: no acute distress no pain Eyes: sclera anicteric ENMT: moist mucous membranes Cardiovascular: S1-S2 no murmurs no peripheral edema Respiratory: clear to auscultation with normal respiratory effort and no intercostal retractions GI: abdomen soft nontender nondistended Extremities / lymphatics: free range of motion no peripheral edema Skin: no jaundice no rashes warm, nondiaphoretic Psychiatric: mood and affect are appropriate and alert and oriented to person place and time Review today's labs are in keeping with the previous, white count is 6 hemoglobin 13 lytes are okay Discussed with gastroenterology the plan is continue antibiotics as an outpatient and follow-up for colonoscopy in at least 6 weeks, watch for recurrent symptoms. I really doubt appendicitis tried to reassure them among all the others, a particularly unusual aspect to this is that despite the amount of inflammation seen on the CT scan he hardly had any pain and no fevers or leukocytosis. See me next week in the office. Allergies: Coded Allergies: No Known Allergies (06/28/17) Disposition Summary Disposition Principal Diagnosis: Right lower quadrant pain, colitis Additional Diagnosis: None acute Discharge Disposition: home or self care Discharge Instructions General Discharge Information Code Status: Full Code Patient's Diet: Resume usual resume usual Patient's Activity: No heavy lifting Follow-Up Instructions/Appts: Next week in the office or sooner as issues arise Medications at Discharge Discharge Medications: Start taking the following new medications: Ciprofloxacin HCl (Cipro) 500 MG TABLET 1 Tablet ORAL TWICE DAILY Qty = 20 No Refills Instructions: . Comments: NOT GIVEN IN HOSPITAL Metronidazole (Flagyl) 500 MG TABLET 1 Tablet ORAL THREE TIMES DAILY Qty = 30 No Refills Instructions: do not take with alcohol Comments: LAST GIVEN 06/30/17 @ 6132 Copies To: Maicol LYON,Jorge A Hicks
== END 2017-06-30 11:42 ==
LOC: ERH 16:13 → ERHI 20:29 → 2NB 20:29 → ENRESERV 21:05 → 2NB 21:57 → ENPENDDIS 06-30 10:51 → 2NB 06-30 11:42
PROVIDERS: Physician Assistant; Physician Assistant Surgical
DX: R10.31 Right lower quadrant pain (principal); I48.91 Unspecified atrial fibrillation; E78.5 Hyperlipidemia, unspecified; K50.90 Crohn's disease, unspecified, without complications
CPT/HCPCS: 6040; 36415; 36592; 81001; 82436; 93005; 93010; 96372; 96374; 96375; 96376; G0378; J0696; J1644; J7042

== ENCOUNTER 2017-07-02 09:27 | Inpatient (IN) | payer OTHER ==
[~2017-07-02] VITALS: Ht 180.3 cm; Wt 75.8 kg
[~2017-07-02 09:27] MED LIST: CIPRO500 M1 PO; FLAGYL500 MG PO
[2017-07-02] MEDS ORDERED: ASPIRIN81 M4 PO (09:47)
[2017-07-02] MEDS ORDERED: AMLODIPINE BESYL5 M1 PO (09:47)
[2017-07-02] MEDS ORDERED: OMEPRAZOLE20 M2 PO (09:48)
[2017-07-02] MEDS ORDERED: ATENOLOL50 M1 PO (09:48)
[2017-07-02] MEDS ORDERED: PRAVASTATIN SOD40 M2 PO (09:49)
[2017-07-02] MEDS ORDERED: LISINOPRIL20 M1 PO (09:49)
--- NOTE | 2017-07-02 10:27 | ED GI/GU/ABDOMINAL COMPLAINT ---
History of Present Illness General Chief Complaint: General Adult Stated Complaint: ?GI BLEED Source: patient, family, old records Exam Limitations: no limitations Vital Signs & Intake/Output Vital Signs & Intake/Output Vital Signs Date Time Temp Pulse Resp B/P B/P Pulse O2 O2 Flow FiO2 Mean Ox Delivery Rate 07/03 0800 98 Room Air 07/03 0800 97.7 78 20 146/72 98 Room Air 07/03 0400 96 Room Air 07/03 0000 97.7 90 18 130/80 97 Room Air 07/03 0000 97 Room Air 07/02 2207 96 Room Air 07/02 2102 98.6 82 18 161/76 99 Room Air 07/02 2021 81 18 144/74 97 Room Air 07/02 2016 82 18 140/71 97 Room Air 07/02 1923 98.4 94 18 177/91 97 Room Air 07/02 1837 87 171/82 07/02 1700 98.7 72 20 160/77 96 Room Air ED Intake and Output 07/03 0000 07/02 1200 Intake Total 1300 Output Total 375 Balance 925 Intake, IV 1300 Output, Urine 375 Patient 167 lb 175 lb Weight Weight Bed scale Reported by Patient Measurement Method Allergies Coded Allergies: No Known Allergies (06/28/17) Reconcile Medications Amlodipine Besylate 5 MG TABLET 1 TAB PO DAILY HEART (Reported) Aspirin (Aspirin*) 81 MG TAB.CHEW 1 TAB PO DAILY HEART HEALTH (Reported) Atenolol 50 MG TABLET 1 TAB PO DAILY HEART (Reported) Ciprofloxacin HCl (Cipro) 500 MG TABLET 1 TAB PO BID ileitis . Lisinopril 20 MG TABLET 1 TAB PO DAILY HEART (Reported) Metronidazole (Flagyl) 500 MG TABLET 1 TAB PO TID ileitis do not take with alcohol Omeprazole 20 MG CAPSULE.DR 1 CAP PO DAILY GI (Reported) Pravastatin Sodium 40 MG TABLET 1 TAB PO QPM CHOLESTEROL (Reported) Triage Note: 61 Y/O MALE C/O "GI BLEED". STATES HE WAS ADMITTED TO HOSPITAL LAST WEEK, "THEY THOUGHT IT WAS APPENDICTIS .. I WAS ADMITTED AND GOT ANTIBIOTICS AND HAD SURGICAL AND GI CONSULT". PT STATES HE WAS D/[facility] ON WEDNESDAY AND "FELT GOOD". SINCE WAKING THIS MORNING, HAS HAD 4 EPISODES OF "BRIGHT RED BLOOD" IN TOILET. PT DENIES PAIN. C/O "QUEASY" FEELING IN STOMACH. AFEBRILE. TAKEN TO ROOM 1 FOR EVAL Triage Nurses Notes Reviewed? yes Onset: Abrupt Duration: hour(s):, continues in ED, intermittent Timing: multiple episodes today HPI: Patient presents for evaluation of an episode of bright red and dark red rectal bleeding that began abruptly this morning. Patient was seen a few days ago for an episode of right lower quadrant abdominal pain. It was initially thought that he might have acute appendicitis. However there was also associated cecal inflammation so patient was treated conservatively. Although he began feeling better on antibiotics he then had an onset of rectal bleeding. Past History Travel History Traveled to [place] past 21 day No Medical History Any Pertinent Medical History? 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 No Review of Systems Review of Systems Constitutional: Reports: no symptoms. EENTM: Reports: no symptoms. Respiratory: Reports: no symptoms. Cardiovascular: Reports: no symptoms. GI: Reports: see HPI. Genitourinary: Reports: no symptoms. Musculoskeletal: Reports: no symptoms. Skin: Reports: no symptoms. Neurological/Psychological: Reports: no symptoms. Hematologic/Endocrine: Reports: no symptoms. Immunologic/Allergic: Reports: no symptoms. All Other Systems: Reviewed and Negative Physical Exam Physical Exam Gastrointestinal: SEE BELOW Comments: Gen.: Well-nourished, well-developed, no acute respiratory distress. Head: Normocephalic, atraumatic. Eyes: Normal inspection bilaterally Ears: Normal inspection bilaterally Nose: Normal inspection Throat/mouth : Moist mucosa Neck: Supple, full range of motion, no goiter Heart: Regular rate and rhythm, no murmurs rubs or gallops Lungs: Clear to auscultation bilaterally with normal air entry Chest: Nontender Back: Normal range of motion Abdomen: Soft, nontender, nondistended, normal bowel sounds Extremities: Normal range of motion grossly, equal radial pulses, no cyanosis clubbing or edema Neurologic: Cranial nerves grossly intact, speech is clear Skin: warm and dry with good color Psychiatric: Calm, cooperative, no apparent delusions or hallucinations Rectal exam: No stool in the vault but residue tested strongly heme positive no masses Core Measures ACS in differential dx? No Sepsis Present: No Sepsis Focused Exam Completed? No Progress Differential Diagnosis: upper GI bleed, lower GI bleed, diverticular bleed, Crohn's disease, ulcerative colitis Plan of Care: Orders Procedure Date/time Status Regular Diet 07/03 L Active Nothing by Mouth 07/03 B Complete ICU LAB BUNDLE 07/03 0500 Complete HIGH SENSITIVITY CRP 07/03 0500 Complete HEPATIC FUNCTION PANEL 07/03 0500 Complete WESTERGREN SED RATE 07/03 0500 Complete CBC WITHOUT DIFFERENTIAL 07/03 0500 Complete HEPATITIS PANEL 07/03 0015 Complete ICU LAB BUNDLE 07/03 0007 Complete Lab Add-on Test 07/03 0004 Active CBC WITHOUT DIFFERENTIAL 07/03 0000 Complete Transfer patient to 07/03 UNK Active Transfer patient to 07/03 UNK Active Lab Add-on Test 07/03 UNK Active Pathway - chart 07/02 2214 Active Wound Care/Dressing 07/03 2203 Active Weight 07/03 2203 Complete VTE Mechanical Prophylaxis 07/03 2203 Active Vital Signs 07/03 2203 Active Turn and Reposition 07/03 2203 Complete Drains/Tubes 07/03 2203 Active Teach/Educate 07/03 2203 Active Skin Integrity Protocol 07/03 2203 Active Skin/Pressure Ulcer Assess (Sk 07/03 2203 Active Precautions 07/03 2203 Active Pain Treatment and Response 07/03 2203 Active Nutritional Intake, Monitor 07/03 2203 Active Isolation 07/03 2203 Active CIWA 07/03 2203 Active Patient Care Conference 07/03 2203 Active Activity/Ambulation 07/03 2203 Active FingerStick- Glucose 07/02 2056 Complete LEUKOCYTE POOR (PACKED CELLS) 07/02 2053 Active VRE ACTIVE SURVIELLANCE 07/02 2032 Active ACTIVE SURVEILLANCE NARES 07/02 2032 Active EKG 07/03 2019 Active TROPONIN LEVEL 07/02 2014 Complete CBC WITHOUT DIFFERENTIAL 07/02 2014 Complete BASIC ELECTROLYTES PLUS BUN&CR 07/02 2014 Complete Pathway - chart 07/02 1926 Active Patient Data 07/02 1926 Active Code Status 07/02 1926 Active Patient Data 07/03 1915 Active Patient Data 07/02 1857 Active CBC WITHOUT DIFFERENTIAL 07/02 1713 Complete BASIC METABOLIC PANEL 07/02 1713 Complete Misc Message 07/02 1645 Active ED Holding Orders 07/02 1645 Active Admit to inpatient 07/02 1645 Active Vital Signs 07/02 1645 Active Code Status 07/02 1645 Complete TOTAL IRON BINDING CAPACITY 07/02 1024 Complete LACTIC ACID 07/02 1024 Complete FERRITIN 07/02 1024 Complete SERUM IRON 07/02 1024 Complete ANTINUCLEAR ANTIBODY 07/02 1024 Active Intake & Output 07/02 1008 Active Lab Add-on Test 07/02 UNK Active VTE Mechanical Prophylaxis 07/02 UNK Active Vital Signs 07/02 UNK Active Intake & Output 07/02 UNK Active Activity/Ambulation 07/02 UNK Active EKG 07/02 UNK Active Current Medications Sig/Malvin Start time Last Medication Dose Stop Time Status Admin Pravastatin Sodium 40 MG 1700 07/03 1700 AC (Pravachol) Ciprofloxacin 400 MG Q12 07/03 0900 AC 07/03 (Cipro) 0952 Dextrose/Water 200 ML (D5W) Pantoprazole Sodium 40 MG DAILY 07/03 0900 AC 07/03 (Protonix) 0952 Metronidazole 500 MG IQ8 07/03 0000 AC 07/03 (Flagyl) 0741 N/A 1 UNIT (No Carrier) Laboratory Tests 07/03/17 0842: Hepatitis A IgM Ab Cancelled, Hep Bs Antigen Cancelled, Hep B Core IgM Ab Conf Cancelled, Hepatitis C Antibody Cancelled 07/03/17 0500: Anion Gap 12, Estimated GFR > 60, Glucose 112 H, Calcium 8.0 L, Phosphorus 3.5 , Magnesium 1.9, Total Bilirubin 0.7, Direct Bilirubin 0, AST 82 H, ALT 106 H, Alkaline Phosphatase 37, C-React Prot High Sens 5.3 H, Total Protein 5.9 L, Albumin 3.4 L, CBC w Diff NO MAN DIFF REQ, RBC 3.75 L, MCV 84.6, MCH 27.9, MCHC 33.0, RDW 13.1, MPV 7.2 L, Gran % 77.5 H, Lymphocytes % 12.9 L, Monocytes % 8.3, Eosinophils % 0.9, Basophils % 0.4, Absolute Granulocytes 6.7 H, Absolute Lymphocytes 1.1 L, Absolute Monocytes 0.7 H, Absolute Eosinophils 0.1, Absolute Basophils 0, ESR Westergren 12 H 07/03/17 0015: Anion Gap 9, Estimated GFR > 60, Glucose 114 H, Calcium 8.0 L, Phosphorus 3.4, Magnesium 1.9, Total Bilirubin 0.7, AST 86 H, ALT 111 H, Albumin 3.4 L, CBC w Diff NO MAN DIFF REQ, RBC 3.93 L, MCV 84.2, MCH 28.7, MCHC 34.1, RDW 13.2, MPV 7.6, Gran % 86.2 H, Lymphocytes % 8.2 L, Monocytes % 4.7, Eosinophils % 0.5, Basophils % 0.4, Absolute Granulocytes 9.9 H, Absolute Lymphocytes 0.9 L, Absolute Monocytes 0.5, Absolute Eosinophils 0.1, Absolute Basophils 0, Hepatitis A IgM Ab NONREACTIVE, Hep Bs Antigen NONREACTIVE, Hep B Core IgM Ab Conf NONREACTIVE, Hepatitis C Antibody NONREACTIVE 07/02/170: CBC w Diff Cancelled, WBC Cancelled, RBC Cancelled, Hgb Cancelled, Hct Cancelled , MCV Cancelled, MCH Cancelled, MCHC Cancelled, RDW Cancelled, Plt Count Cancelled, MPV Cancelled 07/02/172020: Anion Gap 10, Estimated GFR > 60, BUN/Creatinine Ratio 18.8, Troponin I < 0.01, CBC w Diff NO MAN DIFF REQ, RBC 4.14 L, MCV 84.5, MCH 28.1, MCHC 33.2, RDW 13.3 , MPV 7.3 L, Gran % 66.6, Lymphocytes % 21.1, Monocytes % 10.0 H, Eosinophils % 1.8, Basophils % 0.5, Absolute Granulocytes 9.3 H, Absolute Lymphocytes 3.0, Absolute Monocytes 1.4 H, Absolute Eosinophils 0.2, Absolute Basophils 0.1 07/02/17 1720: Anion Gap 11, Estimated GFR > 60, BUN/Creatinine Ratio 17.5, Glucose 93, Calcium 8.8, CBC w Diff NO MAN DIFF REQ, RBC 4.76, MCV 85.4, MCH 28.0, MCHC 32.8 L, RDW 13.5, MPV 7.4, Gran % 67.1, Lymphocytes % 19.3 L, Monocytes % 10.2 H, Eosinophils % 2.6, Basophils % 0.8, Absolute Granulocytes 5.3, Absolute Lymphocytes 1.5, Absolute Monocytes 0.8 H, Absolute Eosinophils 0.2, Absolute Basophils 0.1, Ref Lab Test Result Pending Microbiology 07/02 2129 UPPER RESP: Surveillance Culture - RECD 07/02 2129 GI: Surveillance Culture - RECD Initial ED EKG: none Comments: 07/02/2017 12:02:08 PM D/W DR GUERRA WHO REVIEWED HX. SUGGESTS IMODIUM, PENTASA 1GM QID. CHECK STOOL CXS. OUTPT COLONSCOPY. 07/02/2017 1:03:18 PM awaiting call back from Jogre A Milian MD. I have updated the patient and on Dr. Jacobson's recommendations. 07/02/2017 3:30:39 PM I have repeatedly attempted to contact either Jorge A Milian MD or Dr. Gibbons but have been unable given their busy OR schedule. At this point we will give Chuck his Cipro and Flagyl and clear liquids as his fears his diarrhea will come back should he begin taking PO again. Patient's case discussed with Dr. Sanderson. Departure Departure Disposition: HOME OR SELF CARE Condition: Stable Clinical Impression Primary Impression: Colitis Referrals: Gabe LYON,Popeye Bajwa (PCP/Family) Additional Instructions: Continue the Cipro and Flagyl. Consider Imodium to help with the diarrhea. Follow-up with Dr. Cormier (GI specialist) for outpatient colonoscopy as soon as possible. Return if any concerns or sudden worsening. Departure Forms: Customer Survey General Discharge Information Admission Note Spoke With: Kin LYON,[facility] Documentation of Exam: Documentation of any treatments & extenuating circumstances including Concerns Regarding Discharge (functional status, medication knowledge or non-compliance, living conditions, etc.) that warrant an admission rather than observation: Patient has experienced multiple episodes of bloody diarrhea, the etiology of which is somewhat unclear at this point (possibilities would include Crohn's disease, ulcerative colitis, diverticular bleeding/lower GI bleed, upper GI bleed). Given the ongoing episodes of bloody diarrhea I do not feel this patient is a good candidate for outpatient management. I feel his blood counts will begin to decline and he is at ongoing risk of hemorrhage, symptomatic anemia and mortality. In addition I feel he would be incapable of compliance with outpatient management given his symptoms. He would likely return in worse clinical condition. I believe he requires hospitalization for serial hematocrit and hemoglobin determinations along with monitoring of his intake and output ( including blood per rectum). He should also have GI consultation and surgical consultation. Stool cultures should be followed and treatment adjusted accordingly. Colonoscopy should be considered. I feel this patient will require a multiple day hospitalization. Critical Care Note Critical Care Note Critical Care Time: 30-74 min
[2017-07-02 10:43] LABS: ABSOLUTE BASOPHIL COUNT 0 /CUMM (0.0-0.2); ABSOLUTE EOSINOPHIL COUNT 0.2 /CUMM (0.0-0.7); ABSOLUTE GRANULOCYTE CT 4.8 /CUMM (1.4-6.5); ABSOLUTE LYMPH COUNT 1.1 /CUMM (1.2-3.4); ABSOLUTE MONOCYTE COUNT 0.7 /CUMM (0.10-0.60); BASOPHIL % 0.3 % (0.0-2.0); EOSINOPHIL % 2.2 % (0-5); HEMATOCRIT 42.5 % (42-52); MEAN CORPUSCULAR HGB 26.3 PG (27.0-31.0); MEAN CORPUSCULAR HGB CONC 31.1 G/DL (33.0-37.0); MEAN CORPUSCULAR VOLUME 84.8 FL (80.0-94.0); MEAN PLATELET VOLUME 7.6 FL (7.4-10.4); PLATELET COUNT 356 /CUMM (130-400); RBC DISTRIBUTION WIDTH 13.1 % (11.5-14.5); RED BLOOD CELL CT 5.02 /CUMM (4.70-6.10); WHITE BLOOD CELL COUNT 6.8 /CUMM (4.8-10.8)
[2017-07-02 10:52] LABS: PT 14.4 SEC (9.4-12.5); PTT 31 SEC (25-37)
[2017-07-02 17:34] LABS: ABSOLUTE BASOPHIL COUNT 0.1 /CUMM (0.0-0.2); ABSOLUTE EOSINOPHIL COUNT 0.2 /CUMM (0.0-0.7); ABSOLUTE GRANULOCYTE CT 5.3 /CUMM (1.4-6.5); ABSOLUTE LYMPH COUNT 1.5 /CUMM (1.2-3.4); ABSOLUTE MONOCYTE COUNT 0.8 /CUMM (0.10-0.60); BASOPHIL % 0.8 % (0.0-2.0); EOSINOPHIL % 2.6 % (0-5); GRANULOCYTE % 67.1 % (42.2-75.2); HEMATOCRIT 40.6 % (42-52); MEAN CORPUSCULAR HGB CONC 32.8 G/DL (33.0-37.0); MEAN CORPUSCULAR VOLUME 85.4 FL (80.0-94.0); MEAN PLATELET VOLUME 7.4 FL (7.4-10.4); PLATELET COUNT 350 /CUMM (130-400); RBC DISTRIBUTION WIDTH 13.5 % (11.5-14.5); RED BLOOD CELL CT 4.76 /CUMM (4.70-6.10); WHITE BLOOD CELL COUNT 7.9 /CUMM (4.8-10.8)
--- NOTE | 2017-07-02 19:23 | History & Physical ---
General Information and HPI MD Statement: I have seen and personally examined RONNY SAMANO and documented this H&P. The patient is a 61 year old M who presented with a patient stated chief complaint of [BRIGHT RED BLOOD PER RECTUM]. Source of Information: patient, family, old records, EMS Exam Limitations: no limitations History of Present Illness: Patient is a 61 YO M with PMH significant for HTN, HLD, paroxysmal A. fib (now in sinus), renal stones, Crohn's disease (40 years ago) in remission, bilateral inguinal hernias repaired presented to [facility] with bright red blood per rectum started this morning. Patient had 4 episodes of bloody bowel movements starting 4:30 in the morning, presented to ER around 10 AM. He had 6 large lady bowel movements in the ER. This is followed by an episode of syncope while sitting in the commode associated with paleness and diaphoresis. He is completely asymptomatic without any abdominal pain, nausea, vomiting. Denies any similar episodes in the past. He was recently admitted to [facility] 06/28/2017 to 06/30/2017 for possible appendicitis/cecal inflammation treated with IV antibiotics and discharged with Cipro and Flagyl for a total of 10 days. Since discharge patient remained well until yesterday evening. Last colonoscopy in 2007. Allergies No known drug allergies He had an episode of paroxysmal atrial fibrillation in the past treated with antibiotics and anticoagulation, remained off medications as in sinus rhythm since long time. Medications Amlodipine 5 mg daily, lisinopril 20 mg daily, atenolol 50 mg daily, pravastatin 40 mg daily, and Prozac 20 mg daily, aspirin 81 mg daily. Family history Mother with diverticulitis, possibly with brain aneurysm rupture. Father had hypertension, hyperlipidemia, dementia, disease due to traumatic fall. Cousin with refractory Crohn's disease Social Never smoked, occasionally takes beer/wine, no drug abuse Surgeries Bilateral inguinal hernia repair, umbilical hernia repair Allergies/Medications Allergies: Coded Allergies: No Known Allergies (06/28/17) Home Med list Amlodipine Besylate 5 MG TABLET 1 TAB PO DAILY HEART (Reported) Aspirin (Aspirin*) 81 MG TAB.CHEW 1 TAB PO DAILY HEART HEALTH (Reported) Atenolol 50 MG TABLET 1 TAB PO DAILY HEART (Reported) Ciprofloxacin HCl (Cipro) 500 MG TABLET 1 TAB PO BID ileitis . Lisinopril 20 MG TABLET 1 TAB PO DAILY HEART (Reported) Metronidazole (Flagyl) 500 MG TABLET 1 TAB PO TID ileitis do not take with alcohol Omeprazole 20 MG CAPSULE. 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 Home Who Do You Live With? spouse Services at Home: None Primary Language: Luxembourger Smoking Status: Never Smoked ETOH Use: occasional use Illicit Drug Use: denies illicit drug use Functional Ability ADLs Independent: dressing, eating, toileting, bathing. Ambulation: independent IADLs Independent: shopping, housework, finances, food prep, telephone, transportation , medication admin. Review of Systems Review of Systems Constitutional: Reports: see HPI. EENTM: Reports: no symptoms. Cardiovascular: Reports: no symptoms. Respiratory: Reports: no symptoms. GI: Reports: see HPI, bloody stool. Genitourinary: Reports: see HPI. Exam & Diagnostic Data Last 24 Hrs of Vital Signs/I&O Vital Signs Date Time Temp Pulse Resp B/P B/P Pulse O2 O2 Flow FiO2 Mean Ox Delivery Rate 07/02 2101 98.6 82 18 161/76 99 Room Air 07/02 2021 81 18 144/74 97 Room Air 07/02 2017 82 18 140/71 97 Room Air 07/02 1923 98.4 94 18 177/91 97 Room Air 07/02 1837 87 171/82 07/02 1700 98.7 72 20 160/77 96 Room Air 07/02 1410 98.3 63 18 134/75 97 Room Air Room Air 07/02 1134 98.7 66 18 154/72 98 Room Air 07/02 0933 95.5 73 16 160/90 98 Room Air Intake & Output 07/02 1600 07/02 0800 07/02 0000 Intake Total Output Total Balance Patient 79.379 kg Weight Weight Reported by Patient Measurement Method Physical Exam General Appearance Alert, Oriented X3, Cooperative, Mild Distress Skin No Rashes, No Breakdown Skin Temp/Moisture Exam: Hot/Diaphoretic Sepsis Skin Exam (color): Normal for Ethnicity, Flushed HEENT Atraumatic, PERRLA, EOMI Neck Supple, No JVD Cardiovascular Normal S1, Normal S2, No Murmurs Lungs Clear to Auscultation, Normal Air Movement Abdomen Normal Bowel Sounds, No Tenderness, distended Neurological Normal Gait, Normal Speech, Strength at 5/5 X4 Ext Extremities No Clubbing, No Cyanosis, No Edema Vascular Normal Pulses Last 24 Hrs of Labs/Mateo: Laboratory Tests 07/02/172020: Anion Gap 10, Estimated GFR > 60, BUN/Creatinine Ratio 18.8, Troponin I < 0.01, CBC w Diff NO MAN DIFF REQ, RBC 4.14 L, MCV 84.5, MCH 28.1, MCHC 33.2, RDW 13.3 , MPV 7.3 L, Gran % 66.6, Lymphocytes % 21.1, Monocytes % 10.0 H, Eosinophils % 1.8, Basophils % 0.5, Absolute Granulocytes 9.3 H, Absolute Lymphocytes 3.0, Absolute Monocytes 1.4 H, Absolute Eosinophils 0.2, Absolute Basophils 0.1 07/02/17 1720: Anion Gap 11, Estimated GFR > 60, BUN/Creatinine Ratio 17.5, Glucose 93, Calcium 8.8, CBC w Diff NO MAN DIFF REQ, RBC 4.76, MCV 85.4, MCH 28.0, MCHC 32.8 L, RDW 13.5, MPV 7.4, Gran % 67.1, Lymphocytes % 19.3 L, Monocytes % 10.2 H, Eosinophils % 2.6, Basophils % 0.8, Absolute Granulocytes 5.3, Absolute Lymphocytes 1.5, Absolute Monocytes 0.8 H, Absolute Eosinophils 0.2, Absolute Basophils 0.1 07/02/17 1125: Urine Color YEL, Urine Clarity CLEAR, Urine pH 6.5, Ur Specific [place] 1.020, Urine Protein NEG, Urine Ketones NEG, Urine Nitrite NEG, Urine Bilirubin NEG, Urine Urobilinogen 0.2, Ur Leukocyte Esterase NEG, Ur Microscopic SEDIMENT EXAMINED, Urine RBC RARE, Urine Hemoglobin TRACE-LYSED H, Urine Glucose NEG 07/02/17 1024: Anion Gap 12, Estimated GFR > 60, BUN/Creatinine Ratio 22.5, Glucose 103 H, Lactic Acid 1.0, Calcium 9.1, Total Bilirubin 0.6, AST 106 H, ALT 117 H, Alkaline Phosphatase 46, Total Protein 7.1, Albumin 4.3, Globulin 2.8, Albumin/ Globulin Ratio 1.5, PT 14.4 H, INR 1.32 H, APTT 31, CBC w Diff NO MAN DIFF REQ , RBC 5.02, MCV 84.8, MCH 26.3 L, MCHC 31.1 L, RDW 13.1, MPV 7.6, Gran % 71.0, Lymphocytes % 16.6 L, Monocytes % 9.9 H, Eosinophils % 2.2, Basophils % 0.3, Absolute Granulocytes 4.8, Absolute Lymphocytes 1.1 L, Absolute Monocytes 0.7 H, Absolute Eosinophils 0.2, Absolute Basophils 0 Microbiology 07/02 2032 UPPER RESP: Surveillance Culture - ORD 07/02 2032 GI: Surveillance Culture - ORD 07/02 1124 STOOL: Clostridium difficile Toxin A & B - RES 07/02 1124 STOOL: Stool Culture - RES Diagnostic Data EKG Results Sinus Rhythm with normal axis, no ST T wave changes. Assessment/Plan Assessment: Patient is 61-year-old male with past medical history significant for HTN, HLD, paroxysmal A. fib (now in sinus), renal stones, Crohn's disease (40 years ago) in remission presented with bright red blood per rectum. He is completely asymptomatic presentation and had so for 10 bloody bowel movements. This is followed by an episode of syncope (vasovagal) while sitting on a commode. He was recently admitted for atypical presentation of appendicitis with cecal inflammation treated medically and discharged with Cipro and Flagyl for a total of 10 days. Vital signs at presentation temp 95.5, heart rate 73, blood pressure 60/90 mmHg, saturating well on room air. Physical examination did show normal heart sounds, clear lungs, distended abdomen with normal bowel sounds. Labs did show white count 6.8--> 14, H&H 13/42--> 11/35. Normal chem panel with BUN/ creatinine 15/0.8. AST/ALT 106/1 1 7, PT 14.4, INR 1.3. UA is clear. CT abdomen done June 28, 2017 did show cecal inflammation and appendiceal base inflammation concerned about colitis/appendicitis. CT angiogram of abdomen and pelvis performed today is still pending. Admitted to ICU Problem list 1. Lower GI bleed probably diverticular in nature 2. Crohn's disease in remission 3. Hypertension 4. Hyperlipidemia Lower gastrointestinal bleed - possibly diverticular/angiodyplasia related It is probably diverticular in nature given diverticulosis on recent imaging and asymptomatic. He had a history of chrons disease in the past but had been in remission since 40yrs ago. Last colonoscopy 2007. No similar episodes in the past. No fevers, hemorrhoids. Evidence of bright red blood without any elevation in BUN/cr suggest more of lower GI bleed. Orthostatic positive with an episode of vasovagal syncope indicating intravenous volume depletion. * CT angio did not reveal any active bleed, however there are regions of mesenteric stranding. Evidence of Diverticulosis without diverticulitis. * 2 large bore IV lines * Aggressive resuscitation * Holding all antihypertensives and aspirin * NPO with golytely prep for colonoscopy in the am. * GI and surgery consulted * Continue cipro and flagyl for now to complete the antibiotic course HTN Holding all the medications HLD Continue pravastatin 40mg daily DVT prophylaxis ALPS - active bleed Code status full code As Ranked By This Provider Problem List: 1. Lower GI bleed Core Measures/Misc (11/08) Acute Coronary Syndrome ACS Diagnosis: No Congestive Heart Failure Congestive Heart Failure Diagnosis No Cerebrovascular Accident CVA/TIA Diagnosis: No VTE (View Protocol) VTE Risk Factors Acute Medical Illness No Mechanical VTE Prophylaxis d/t N/A MechProphylax Ordered No VTE Pharm Prophylaxis d/t Bleeding (Active) Sepsis (View protocol) Sepsis Present: No Resident Review Statement Resident Statement: examined this patient, discussed with audit practice intern, agreed with audit practice intern, discussed with family, reviewed EMR data (avail), discussed with nursing , discussed with case mgmt, reviewed images, amended to note Other Findings: as above
[2017-07-02 20:33] LABS: ABSOLUTE BASOPHIL COUNT 0.1 /CUMM (0.0-0.2); ABSOLUTE EOSINOPHIL COUNT 0.2 /CUMM (0.0-0.7); ABSOLUTE GRANULOCYTE CT 9.3 /CUMM (1.4-6.5); ABSOLUTE MONOCYTE COUNT 1.4 /CUMM (0.10-0.60); BASOPHIL % 0.5 % (0.0-2.0); EOSINOPHIL % 1.8 % (0-5); GRANULOCYTE % 66.6 % (42.2-75.2); MEAN CORPUSCULAR HGB 28.1 PG (27.0-31.0); MEAN CORPUSCULAR HGB CONC 33.2 G/DL (33.0-37.0); MEAN CORPUSCULAR VOLUME 84.5 FL (80.0-94.0); MEAN PLATELET VOLUME 7.3 FL (7.4-10.4); PLATELET COUNT 367 /CUMM (130-400); RBC DISTRIBUTION WIDTH 13.3 % (11.5-14.5); RED BLOOD CELL CT 4.14 /CUMM (4.70-6.10)
--- NOTE | 2017-07-02 20:43 | Cons- Gastroenterology ---
General Information and HPI Consulting Request Date of Consult: 07/02/17 Requested By: Augustine Sanderson MD Reason for Consult: I was called by the [place] [facility] approximately 7:30 PM to notify me of the patient 's admission for GI bleed. I had previously spoken with Dr. Morton about the patient at approximately 11:45 AM, at which point, I was led to believe that the patient was being discharged to home for outpatient colonoscopy, as at that time , he had scant bloody diarrhea with an exceptionally stable HCT and very stable vital signs. When called again this evening, I advised a CTA of the abdomen, which was done just prior to me seeing the patient. CTA results were pending. Source of Information: patient, family (pt's , Karine Holbrookkaylee RN), old records Exam Limitations: no limitations History of Present Illness: 61 y/o male, HTN, HLD, remote afib 2009 (chemically cardioverted to NSR then, after a short course of Coumadin/Lovenox; off A/C tx x years), on baby ASA 81 mg daily (denies SD or CVA), Ca oxalate renal stones, remote umbilical hernia repair & B/L IH repairs, with a remote history of Crohn's disease in his 20s, at which point, he presented with bloody diarrhea & was on a very short course of Prednisone. He was transfused at that time. He had been off medications since then, as his Crohn's disease had been essentially asymptomatic. He had never been on mesalamine, immunomodulators or biologic agents. He was not certain as to the exact location of the Crohn's disease then, but he thinks it might have been the ileum. Aside from a 1st cousin with Crohn's disease, he denied any FHx of additional GI disease, GI Ca, bleeding disorders, or inherited liver disease. 05/11/07: EGD with bx/colonoscopy to TI with bx per Dr. Renetta Cormier (done for screening, remote hx Crohn's, & GERD)- 4 cm sliding HH from 40-44 cm & tiny prepyloric antral nodule- bx: mild CAG, HP- neg, benign. Cecal lipoma, ileitis, & mild sigmoid diverticula. Bxs TI: Focal acute & chronic inflammation with surface erosion, reactive epithelial atypia & fibrinopurulent exudate, most c/w Crohn's disease. No granuloma, dysplasia, or CA. The patient had not seen any GI M.D. since. He took Omeprazole for reflux, which was stable on PPI. The patient was recently admitted to [facility] 06/28/17 - 06/30/17, presenting with RLQ pain starting 06/24/17, for which he took a few Advil. There were no fevers, chills, or jaundice. There was no nausea, vomiting, diarrhea, overt GI bleeding, or melena. The patient saw his PMD for the above, who rx an outpt CT AP with IV contrast on 06/28/17. 06/28/17: CT ABD & PELVIS W IV CONTRAST- IMPRESSION: 1. The imaging findings are compatible with diagnosis of acute appendicitis. 2. A 2.4 x 2.2 cm lesion at the upper pole the right kidney with attenuation of 60 Hounsfield units could represent a hyperdense cyst rather than a solid mass. Recommend follow-up with renal ultrasound. 3. Small fat-containing midline abdominal wall hernia. Post LIH repair. 4. Scattered hepatic cysts, max 1.5 cm, nl GB, no dilated ducts. 5. Mild sigmoid diverticulosis coli w/o diverticulitis. 6. ASHD of abdominal aorta & iliac arteries, w/o aneurysm. 7. L2-L3 DJD. The acute/critical test result was discussed with Dr. Bernal at 3:12 pm on 06/28/2017 and it was ascertained that the content and the importance of the findings was understood at the time of the direct communication. DICTATED BY: José Miguel Wilkerson MD DATE/TIME DICTATED:06/28/17 / 1458 *Addendum: This patient has a history of Crohn disease. It should be noted that the fat stranding in the right lower quadrant is primarily located around the collapsed cecum and base of the appendix. The appendiceal wall is abnormally thickened at its junction with the cecum, but this could be reactive to cecal inflammation from Crohn disease. The appendiceal lumen contains some gas and fluid, and the appendix tapers in diameter as it approaches its tip. There is mild circumferential wall thickening of the terminal ileum, but no overt edema in the bowel wall or fat stranding around the ileum. *The inflammatory changes in the right lower quadrant could reflect a flare of patient's inflammatory bowel disease in the cecum rather than acute appendicitis. Addendum Signed by: José Miguel Wilkerson MD 06/28/17 7805 The patient was sent to the [place] [facility] and was admitted to Dr. Milian's surgical service. He was seen by Dr. Yarbrough in inpatient GI consultation 10/09. At that time, WBC 6.9, H/H 13.1/39.5, PLT 295, CRP 5.5, normal CMP except TBil 1.4. The patient was treated with IV antibiotics, switched to po Cipro 500 mg po BID & Flagyl 500 mg po TID, upon D/C 06/30/17. The thoughts were that he probably had a flare of Crohn's disease (albeit, atypical course over the years), rather than appendicitis. Plans were to eventually have an outpatient colonoscopy. He also had an outpatient appointment with urology to follow up the hyperdense right renal cyst noted on CT. On 07/02/17 at approximately 4 a.m., the patient initially had what was described as "bloody diarrhea", followed by pure bright red blood per rectum 4 times at home. He arrived at the [place] ER 07/02/17 at 9:27 a.m. Upon arrival, BP 160/90, P 73, R 16, T 95.5, O2 sat RA 98%. He was given IV NS, IV Cipro & IV Flagyl in the ER. His initial vitals and HCT (42.5) were exceptionally stable, and when I was notified by Dr. Morton about the patient at approximately 11:45 AM, I was led to believe that the patient was being discharged to home for outpatient colonoscopy. When called again this evening at 7:30 p.m., when I found out the patient had already been admitted for LGI bleeding, I advised a CTA of the abdomen, which was done just prior to me seeing the patient. CTA results were pending. The patient had approximately 5 more episodes of rectal bleeding in the ER, followed by what appeared to be a vasovagal event at 8:18 PM, while passing blood in the toilet. There was no chest pain or shortness of breath. The bleeding was painless, without any abdominal pain or rectal pain. There was no melena. The patient denied any nausea, vomiting, or hematemesis. He had mild symptoms of GERD which were chronic in nature. He denied any constipation, obstipation, or tenesmus. He had no rashes or acute arthralgias. He denied any significant weight loss or change in appetite. He denied any fevers, chills, or jaundice. He had no symptoms of UTI or URI. I winessed a large amount of dark red blood & clots in the commode, without stool. 07/02/17: 10:24: WBC 6.8, H/H 13.2/42.5, MCV 84.8, RDW 13.1, PLT 356, PT 14.4, INR 1.32, PTT 31, glu 103, BUN/Cr 18/0.8, GFR > 60, na 141, K 4.3, HCO3 26, AG 12, lactate 1.0, ca 9.1, alb 4.3, glob 2.8, TBil 0.6, alk phos 46, *AST 106, * ALT 117 07/02/17: 17:20: WBC 7.9, H/H 13.3/40.6, PLT 350, glu 93, BUN/Cr 14/1.8, GFR > 60, Na 141, K 4.0, HCO3 27, AG 11, Ca 8.8 07/02/17: 20:21: WBC 14, H/H 11.6/35, PLT 367, BUN/Cr 15/0.8, GFR > 60, Na 141. K 3.7, HCO3 24, AG 10, troponin < 0.01 07/02/17: ER: Stool C. diff toxin A & B- negative; *stool C&S, Shiga toxin- pending. 07/02/17: *EKG- pending. 07/02/17: *CT ABD & PELVIS ANGIOGRAM- IMPRESSION: 1. *No evidence of extravasation of contrast into the gastrointestinal track. Site of GI bleeding not defined. 2. There is diverticulosis of the colon but no evidence of diverticulitis. No acute change of bowel wall. No bowel obstruction. 3. There are regions of edema and stranding in the mesentery. There is an area in the left lower quadrant around the cecum. This is less pronounced however than the CAT scan of 06/28/2017. There is a second area in the left mid upper abdomen which is more pronounced than the prior CAT scan of 06/28/2017. Both of these areas are associated with shotty subcentimeter lymph nodes but no abscess or free air. The surrounding bowel loops are normal. 4. The appendix is normal 5. Atherosclerotic vascular wall calcifications of aorta 6. There are multiple small hepatic cyst. 7. Hyperdense cyst upper pole of right kidney. This critical result was discussed with Dr. Robles on 07/02/2017, 10:00 PM and it was ascertained that the content and urgency of the report was understood at the time of direct communication. DICTATED BY: Ruben Verdin MD DATE/TIME DICTATED:07/02/172121 Allergies/Medications Allergies: Coded Allergies: No Known Allergies (06/28/17) Home Med List: Amlodipine Besylate 5 MG TABLET 1 TAB PO DAILY HEART (Reported) Aspirin (Aspirin*) 81 MG TAB.CHEW 1 TAB PO DAILY HEART HEALTH (Reported) Atenolol 50 MG TABLET 1 TAB PO DAILY HEART (Reported) Ciprofloxacin HCl (Cipro) 500 MG TABLET 1 TAB PO BID ileitis . Lisinopril 20 MG TABLET 1 TAB PO DAILY HEART (Reported) Metronidazole (Flagyl) 500 MG TABLET 1 TAB PO TID ileitis do not take with alcohol Omeprazole 20 MG CAPSULE.DR Jansen CAP PO DAILY GI (Reported) Pravastatin Sodium 40 MG TABLET 1 TAB PO QPM CHOLESTEROL (Reported) Current Medications: Current Medications Sig/Malvin Start time Last Medication Dose Route Stop Time Status Admin Ciprofloxacin 400 MG Q12 07/03 0900 AC Dextrose/Water 200 ML IV Ciprofloxacin 400 MG Q12 07/02 2100 DC Dextrose/Water 200 ML IV Ciprofloxacin 0 .STK-MED ONE 07/02 1556 DC PO Ciprofloxacin 500 MG ONCE ONE 07/02 1545 DC 07/02 PO 07/02 1546 1600 Metronidazole 500 MG IQ8 07/03 0000 AC N/A 1 UNIT IV Metronidazole 500 MG IQ8 07/02 1930 DC N/A 1 UNIT IV Metronidazole 0 .STK-MED ONE 07/02 1556 DC PO Metronidazole 500 MG ONCE ONE 07/02 1545 DC 07/02 PO 07/02 1546 1601 Ondansetron HCl 4 MG ONCE ONE 07/02 2144 DC 07/02 IV 07/02 2145 214 Pantoprazole Sodium 40 MG DAILY 07/03 09 UNVr IV Pantoprazole Sodium 40 MG ONCE ONE 07/02 2144 DC 07/02 IV 07/02 2145 2155 Polyethylene Glycol 1 GAL ONCE ONE 07/02 213 DC PO 07/02 213 Pravastatin Sodium 40 MG 1700 07/03 1700 UNVr PO Sodium Chloride 1,000 ML BOLUS ONE 07/02 2029 DC IV 07/02 2128 Sodium Chloride 1,000 ML BOLUS ONE 07/02 2014 DC 07/02 IV 07/02 2113 202 Sodium Chloride 1,000 ML BOLUS ONE 07/02 2014 DC IV 07/02 2113 Sodium Chloride 1,000 ML ONCE ONE 07/02 1930 AC 07/02 IV 07/03 0209 1940 Sodium Chloride 1,000 ML BOLUS ONE 07/02 1030 DC 07/02 IV 07/02 1229 1024 Trimethobenzamide HCl 200 MG ONCE ONE 07/02 224 UNVr IM 07/02 2245 Past History Travel History Traveled to [place] past 21 day No Medical History Blood Transfusion Hx: Yes (in his 20's at dx of Crohn's) Neurological: NONE EENT: NONE Cardiovascular: AFIB (2009- chem cardiovert-> NSR), hypertension, hyperlipidemia Respiratory: NONE Gastrointestinal: NONE (? ileum, dxd 20's, asx x yrs), Crohn's disease Hepatic: NONE Renal: renal cysts Musculoskeletal: HERNIA-UMBILICAL Psychiatric: NONE Endocrine: NONE Blood Disorders: NONE Cancer(s): NONE FLAT LOCKER/Reproductive: NONE Surgical History Surgical History: hernia repair-inguinal (B/L), hernia repair-umbilical Family History Relations & Conditions If Any: MOTHER, , Age 83; Cause: At risk for intracranial bleeding. FH: brain aneurysm FATHER (OBS). , Age 89; Cause: Fall. FH: HTN (hypertension) 1ST COUSIN (Crohn's disease). Psychosocial History Where Do You Live? Home Who Do You Live With? spouse Services at Home: None Primary Language: Kiswahili Smoking Status: Never Smoked ETOH Use: occasional use (rare) Illicit Drug Use: denies illicit drug use Living Will? no Power of Devulcanizer Charger/HCP? yes Name of POA/HCP: pt's , Karine Fisher Kimi RN Other Social History: . 2 dtrs- [employer]. No cigarettes, rare EtOH, no drugs. 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 Functional Ability ADLs Independent: dressing, eating, toileting, bathing. Ambulation: independent IADLs Independent: shopping, housework, finances, food prep, telephone, transportation , medication admin. 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 Constitutional: Reports: no symptoms EENTM: Reports: no symptoms. Cardiovascular: Reports: no symptoms. Respiratory: Reports: no symptoms. GI: Reports: see HPI, bloody stool. Genitourinary: Reports: no symptoms. Psychiatric: Reports: no symptoms. Exam & Diagnostic Data Vital Signs and I&O Vital Signs Date Time Temp Pulse Resp B/P B/P Pulse O2 O2 Flow FiO2 Mean Ox Delivery Rate 07/02 2101 98.6 82 18 161/76 99 Room Air 07/02 2021 81 18 144/74 97 Room Air 07/02 2016 82 18 140/71 97 Room Air 07/02 1923 98.4 94 18 177/91 97 Room Air 07/02 1837 87 171/82 07/02 1700 98.7 72 20 160/77 96 Room Air 07/02 1410 98.3 63 18 134/75 97 Room Air Room Air 07/02 1134 98.7 66 18 154/72 98 Room Air 07/02 0933 95.5 73 16 160/90 98 Room Air Intake & Output 07/02 1600 07/02 0400 07/01 1600 07/01 0400 06/30 1600 06/30 0400 Intake Total Output Total Balance Patient 175 lb Weight Weight Reported by Patient Measurement Method Physical Exam: Well-developed, well-nourished male, in no apparent distress. Sclera anicteric. Conjunctiva pink. Oropharynx clear. No oral thrush. No apthous ulcers. There is no adenopathy, thyromegaly, or JVD. No peripheral stigmata of inflammatory bowel disease or chronic liver disease on exam. No spiders on the anterior chest wall. No gynecomastia. No CVA tenderness. No spine tenderness. Lungs: clear to A &P. No wheezing, rales, or rhonchi. Heart exam: regular rate rhythm, S1 and S2, without any murmur. Abdominal exam: normal bowel sounds, soft belly, nontender, without guarding or rebound. Reducible umbilical hernia. Otherwise, no mass. No organomegaly. No fluid shift. No pulsatile mass. Digital rectal exam: done by ER: bright red blood with clots, without stool. Obviously, OB-positive. Extremities: without C, C, or E. No palpable cords. No rash. No acute arthropathy. No palmar erythema. No Dupuytren's contractures. Distal pulses 2+ bilaterally. DTRs 2+ bilaterally. Alert and oriented x 3. Motor 5/5 B/L. No tremor. No asterixis. Results Pertinent Lab Results: Laboratory Tests 07/02 Chemistry Sodium (137 - 145 mmol/L) 141 Potassium (3.5 - 5.1 mmol/L) 3.7 Chloride (98 - 107 mmol/L) 107 Carbon Dioxide (22 - 30 mmol/L) 24 Anion Gap (5 - 16) 10 BUN (9 - 20 mg/dL) 15 Creatinine (0.7 - 1.2 mg/dL) 0.8 Estimated GFR (>60 ml/min) > 60 BUN/Creatinine Ratio (7 - 25 %) 18.8 Troponin I (<0.11 ng/ml) < 0.01 Hematology CBC w Diff Cancelled NO MAN DIFF REQ WBC (4.8 - 10.8 /CUMM) Cancelled 14.0 H RBC (4.70 - 6.10 /CUMM) Cancelled 4.14 L Hgb (14.0 - 18.0 G/DL) Cancelled 11.6 L Hct (42 - 52 %) Cancelled 35.0 L MCV (80.0 - 94.0 FL) Cancelled 84.5 MCH (27.0 - 31.0 PG) Cancelled 28.1 MCHC (33.0 - 37.0 G/DL) Cancelled 33.2 RDW (11.5 - 14.5 %) Cancelled 13.3 Plt Count (130 - 400 /CUMM) Cancelled 367 MPV (7.4 - 10.4 FL) Cancelled 7.3 L Gran % (42.2 - 75.2 %) 66.6 Lymphocytes % (20.5 - 51.1 %) 21.1 Monocytes % (1.7 - 9.3 %) 10.0 H Eosinophils % (0 - 5 %) 1.8 Basophils % (0.0 - 2.0 %) 0.5 Absolute Granulocytes (1.4 - 6.5 /CUMM) 9.3 H Absolute Lymphocytes (1.2 - 3.4 /CUMM) 3.0 Absolute Monocytes (0.10 - 0.60 /CUMM) 1.4 H Absolute Eosinophils (0.0 - 0.7 /CUMM) 0.2 Absolute Basophils (0.0 - 0.2 /CUMM) 0.1 07/02 07/02 1720 1125 Chemistry Sodium (137 - 145 mmol/L) 141 Potassium (3.5 - 5.1 mmol/L) 4.0 Chloride (98 - 107 mmol/L) 104 Carbon Dioxide (22 - 30 mmol/L) 27 Anion Gap (5 - 16) 11 BUN (9 - 20 mg/dL) 14 Creatinine (0.7 - 1.2 mg/dL) 0.8 Estimated GFR (>60 ml/min) > 60 BUN/Creatinine Ratio (7 - 25 %) 17.5 Glucose (65 - 99 mg/dL) 93 Calcium (8.4 - 10.2 mg/dL) 8.8 Hematology CBC w Diff NO MAN DIFF REQ WBC (4.8 - 10.8 /CUMM) 7.9 RBC (4.70 - 6.10 /CUMM) 4.76 Hgb (14.0 - 18.0 G/DL) 13.3 L Hct (42 - 52 %) 40.6 L MCV (80.0 - 94.0 FL) 85.4 MCH (27.0 - 31.0 PG) 28.0 MCHC (33.0 - 37.0 G/DL) 32.8 L RDW (11.5 - 14.5 %) 13.5 Plt Count (130 - 400 /CUMM) 350 MPV (7.4 - 10.4 FL) 7.4 Gran % (42.2 - 75.2 %) 67.1 Lymphocytes % (20.5 - 51.1 %) 19.3 L Monocytes % (1.7 - 9.3 %) 10.2 H Eosinophils % (0 - 5 %) 2.6 Basophils % (0.0 - 2.0 %) 0.8 Absolute Granulocytes (1.4 - 6.5 /CUMM) 5.3 Absolute Lymphocytes (1.2 - 3.4 /CUMM) 1.5 Absolute Monocytes (0.10 - 0.60 /CUMM) 0.8 H Absolute Eosinophils (0.0 - 0.7 /CUMM) 0.2 Absolute Basophils (0.0 - 0.2 /CUMM) 0.1 Urines Urine Color (YEL,AMB,STR) YEL Urine Clarity (CLEAR) CLEAR Urine pH (5.0 - 8.0) 6.5 Ur Specific [place] (1.001 - 1.035) 1.020 Urine Protein (NEG,<30 MG/DL) NEG Urine Ketones (NEG) NEG Urine Nitrite (NEG) NEG Urine Bilirubin (NEG) NEG Urine Urobilinogen (0.1 - 1.0 EU/dl) 0.2 Ur Leukocyte Esterase (NEG) NEG Ur Microscopic SEDIMENT EXAMINED Urine RBC (0 - 5 /HPF) RARE Urine Hemoglobin (NEG) TRACE-LYSED H Urine Glucose (N MG/DL) NEG 07/02 1024 Chemistry Sodium (137 - 145 mmol/L) 141 Potassium (3.5 - 5.1 mmol/L) 4.3 Chloride (98 - 107 mmol/L) 103 Carbon Dioxide (22 - 30 mmol/L) 26 Anion Gap (5 - 16) 12 BUN (9 - 20 mg/dL) 18 Creatinine (0.7 - 1.2 mg/dL) 0.8 Estimated GFR (>60 ml/min) > 60 BUN/Creatinine Ratio (7 - 25 %) 22.5 Glucose (65 - 99 mg/dL) 103 H Lactic Acid (0.7 - 2.1 mmol/L) 1.0 Calcium (8.4 - 10.2 mg/dL) 9.1 Total Bilirubin (0.2 - 1.3 mg/dL) 0.6 AST (17 - 59 U/L) 106 H ALT (21 - 72 U/L) 117 H Alkaline Phosphatase (< 127 U/L) 46 Total Protein (6.3 - 8.2 g/dL) 7.1 Albumin (3.5 - 5.0 g/dL) 4.3 Globulin (1.9 - 4.2 gm/dL) 2.8 Albumin/Globulin Ratio (1.1 - 2.2 %) 1.5 Coagulation PT (9.4 - 12.5 SEC) 14.4 H INR (0.90 - 1.17) 1.32 H APTT (25 - 37 SEC) 31 Hematology CBC w Diff NO MAN DIFF REQ WBC (4.8 - 10.8 /CUMM) 6.8 RBC (4.70 - 6.10 /CUMM) 5.02 Hgb (14.0 - 18.0 G/DL) 13.2 L Hct (42 - 52 %) 42.5 MCV (80.0 - 94.0 FL) 84.8 MCH (27.0 - 31.0 PG) 26.3 L MCHC (33.0 - 37.0 G/DL) 31.1 L RDW (11.5 - 14.5 %) 13.1 Plt Count (130 - 400 /CUMM) 356 MPV (7.4 - 10.4 FL) 7.6 Gran % (42.2 - 75.2 %) 71.0 Lymphocytes % (20.5 - 51.1 %) 16.6 L Monocytes % (1.7 - 9.3 %) 9.9 H Eosinophils % (0 - 5 %) 2.2 Basophils % (0.0 - 2.0 %) 0.3 Absolute Granulocytes (1.4 - 6.5 /CUMM) 4.8 Absolute Lymphocytes (1.2 - 3.4 /CUMM) 1.1 L Absolute Monocytes (0.10 - 0.60 /CUMM) 0.7 H Absolute Eosinophils (0.0 - 0.7 /CUMM) 0.2 Absolute Basophils (0.0 - 0.2 /CUMM) 0 Imaging/Other Studies: 06/28/17: EKG- NSR @ 63, LAE, w/o acute abnormality. 06/28/17: CT ABD & PELVIS W IV CONTRAST- IMPRESSION: 1. The imaging findings are compatible with diagnosis of acute appendicitis. 2. A 2.4 x 2.2 cm lesion at the upper pole the right kidney with attenuation of 60 Hounsfield units could represent a hyperdense cyst rather than a solid mass. Recommend follow-up with renal ultrasound. 3. Small fat-containing midline abdominal wall hernia. Post LIH repair. 4. Scattered hepatic cysts, max 1.5 cm, nl GB, no dilated ducts. 5. Mild sigmoid diverticulosis coli w/o diverticulitis. 6. ASHD of abdominal aorta & iliac arteries, w/o aneurysm. 7. L2-L3 DJD. The acute/critical test result was discussed with Dr. Bernal at 3:12 pm on 06/28/2017 and it was ascertained that the content and the importance of the findings was understood at the time of the direct communication. DICTATED BY: José Miguel Wilkerson MD DATE/TIME DICTATED:06/28/171457 *Addendum: This patient has a history of Crohn disease. It should be noted that the fat stranding in the right lower quadrant is primarily located around the collapsed cecum and base of the appendix. The appendiceal wall is abnormally thickened at its junction with the cecum, but this could be reactive to cecal inflammation from Crohn disease. The appendiceal lumen contains some gas and fluid, and the appendix tapers in diameter as it approaches its tip. There is mild circumferential wall thickening of the terminal ileum, but no overt edema in the bowel wall or fat stranding around the ileum. *The inflammatory changes in the right lower quadrant could reflect a flare of patient's inflammatory bowel disease in the cecum rather than acute appendicitis. Addendum Signed by: José Miguel Wilkerson MD 06/28/17 1857 07/02/17:*EKG- pending. 07/02/17: *CT ABD & PELVIS ANGIOGRAM- IMPRESSION: 1. *No evidence of extravasation of contrast into the gastrointestinal track. Site of GI bleeding not defined. 2. There is diverticulosis of the colon but no evidence of diverticulitis. No acute change of bowel wall. No bowel obstruction. 3. There are regions of edema and stranding in the mesentery. There is an area in the left lower quadrant around the cecum. This is less pronounced however than the CAT scan of 06/28/2017. There is a second area in the left mid upper abdomen which is more pronounced than the prior CAT scan of 06/28/2017. Both of these areas are associated with shotty subcentimeter lymph nodes but no abscess or free air. The surrounding bowel loops are normal. 4. The appendix is normal 5. Atherosclerotic vascular wall calcifications of aorta 6. There are multiple small hepatic cyst. 7. Hyperdense cyst upper pole of right kidney. This critical result was discussed with Dr. Robles on 07/02/2017, 10:00 PM and it was ascertained that the content and urgency of the report was understood at the time of direct communication. DICTATED BY: Ruben Verdin MD DATE/TIME DICTATED:07/02/172121 Assessment/Plan Assessment/Recommendations: 61 y/o male, HTN, HLD, remote afib 2009 (chemically cardioverted to NSR then, after a short course of Coumadin/Lovenox; off A/C tx x years), on baby ASA 81 mg daily (denies SD or CVA), Ca oxalate renal stones, remote umbilical hernia repair & B/L IH repairs, with a remote history of Crohn's disease in his 20s, at which point, he presented with bloody diarrhea & was on a very short course of Prednisone. He was transfused at that time. He had been off medications since then, as his Crohn's disease had been essentially asymptomatic. He had never been on mesalamine, immunomodulators or biologic agents. He was not certain as to the exact location of the Crohn's disease then, but he thinks it might have been the ileum. Aside from a 1st cousin with Crohn's disease, he denied any FHx of additional GI disease, GI Ca, bleeding disorders, or inherited liver disease. 05/11/07: EGD with bx/colonoscopy to TI with bx per Dr. Renetta Cormier (done for screening, remote hx Crohn's, & GERD)- 4 cm sliding HH from 40-44 cm & tiny prepyloric antral nodule- bx: mild CAG, HP- neg, benign. Cecal lipoma, ileitis, & mild sigmoid diverticula. Bxs TI: Focal acute & chronic inflammation with surface erosion, reactive epithelial atypia & fibrinopurulent exudate, most c/w Crohn's disease. No granuloma, dysplasia, or CA. The patient had not seen any GI M.D. since. He took Omeprazole for reflux, which was stable on PPI. The patient was recently admitted to [facility] 06/28/17 - 06/30/17, presenting with RLQ pain starting 06/24/17, for which he took a few Advil. There were no fevers, chills, or jaundice. There was no nausea, vomiting, diarrhea, overt GI bleeding, or melena. The patient saw his PMD for the above, who rx an outpt CT AP with IV contrast on 06/28/17. 06/28/17: CT ABD & PELVIS W IV CONTRAST- IMPRESSION: 1. The imaging findings are compatible with diagnosis of acute appendicitis. 2. A 2.4 x 2.2 cm lesion at the upper pole the right kidney with attenuation of 60 Hounsfield units could represent a hyperdense cyst rather than a solid mass. Recommend follow-up with renal ultrasound. 3. Small fat-containing midline abdominal wall hernia. Post LIH repair. 4. Scattered hepatic cysts, max 1.5 cm, nl GB, no dilated ducts. 5. Mild sigmoid diverticulosis coli w/o diverticulitis. 6. ASHD of abdominal aorta & iliac arteries, w/o aneurysm. 7. L2-L3 DJD. The acute/critical test result was discussed with Dr. Bernal at 3:12 pm on 06/28/2017 and it was ascertained that the content and the importance of the findings was understood at the time of the direct communication. DICTATED BY: José Miguel Wilkerson MD DATE/TIME DICTATED:06/28/17 / 1458 *Addendum: This patient has a history of Crohn disease. It should be noted that the fat stranding in the right lower quadrant is primarily located around the collapsed cecum and base of the appendix. The appendiceal wall is abnormally thickened at its junction with the cecum, but this could be reactive to cecal inflammation from Crohn disease. The appendiceal lumen contains some gas and fluid, and the appendix tapers in diameter as it approaches its tip. There is mild circumferential wall thickening of the terminal ileum, but no overt edema in the bowel wall or fat stranding around the ileum. *The inflammatory changes in the right lower quadrant could reflect a flare of patient's inflammatory bowel disease in the cecum rather than acute appendicitis. Addendum Signed by: José Miguel Wilkerson MD 06/28/17 7531 The patient was sent to the [facility] and was admitted to Dr. Milian's surgical service. He was seen by Dr. Yarbrough in inpatient GI consultation 10/09. At that time, WBC 6.9, H/H 13.1/39.5, PLT 295, CRP 5.5, normal CMP except TBil 1.4. The patient was treated with IV antibiotics, switched to po Cipro 500 mg po BID & Flagyl 500 mg po TID, upon D/C 06/30/17. The thoughts were that he probably had a flare of Crohn's disease (albeit, atypical course over the years), rather than appendicitis. Plans were to eventually have an outpatient colonoscopy. He also had an outpatient appointment with urology to follow up the hyperdense right renal cyst noted on CT. On 07/02/17 at approximately 4 a.m., the patient initially had what was described as "bloody diarrhea", followed by pure bright red blood per rectum 4 times at home. He arrived at the [place] ER 07/02/17 at 9:27 a.m. Upon arrival, BP 160/90, P 73, R 16, T 95.5, O2 sat RA 98%. He was given IV NS, IV Cipro & IV Flagyl in the ER. His initial vitals and HCT (42.5) were exceptionally stable, and when I was notified by Dr. Morton about the patient at approximately 11:45 AM, I was led to believe that the patient was being discharged to home for outpatient colonoscopy. When called again this evening at 7:30 p.m., when I found out the patient had already been admitted for LGI bleeding, I advised a CTA of the abdomen, which was done just prior to me seeing the patient. CTA results were pending. The patient had approximately 5 more episodes of rectal bleeding in the ER, followed by what appeared to be a vasovagal event at 8:18 PM, while passing blood in the toilet. There was no chest pain or shortness of breath. The bleeding was painless, without any abdominal pain or rectal pain. There was no melena. The patient denied any nausea, vomiting, or hematemesis. He had mild symptoms of GERD which were chronic in nature. He denied any constipation, obstipation, or tenesmus. He had no rashes or acute arthralgias. He denied any significant weight loss or change in appetite. He denied any fevers, chills, or jaundice. He had no symptoms of UTI or URI. I winessed a large amount of dark red blood & clots in the commode, without stool. 07/02/17: 10:24: WBC 6.8, H/H 13.2/42.5, MCV 84.8, RDW 13.1, PLT 356, PT 14.4, INR 1.32, PTT 31, glu 103, BUN/Cr 18/0.8, GFR > 60, na 141, K 4.3, HCO3 26, AG 12, lactate 1.0, ca 9.1, alb 4.3, glob 2.8, TBil 0.6, alk phos 46, *AST 106, * ALT 117 07/02/17: 17:20: WBC 7.9, H/H 13.3/40.6, PLT 350, glu 93, BUN/Cr 14/1.8, GFR > 60, Na 141, K 4.0, HCO3 27, AG 11, Ca 8.8 07/02/17: 20:21: WBC 14, H/H 11.6/35, PLT 367, BUN/Cr 15/0.8, GFR > 60, Na 141. K 3.7, HCO3 24, AG 10, troponin < 0.01 07/02/17: ER: Stool C. diff toxin A & B- negative; *stool C&S, Shiga toxin- pending. 07/02/17: *EKG- pending. 07/02/17: *CT ABD & PELVIS ANGIOGRAM- IMPRESSION: 1. *No evidence of extravasation of contrast into the gastrointestinal track. Site of GI bleeding not defined. 2. There is diverticulosis of the colon but no evidence of diverticulitis. No acute change of bowel wall. No bowel obstruction. 3. There are regions of edema and stranding in the mesentery. There is an area in the left lower quadrant around the cecum. This is less pronounced however than the CAT scan of 06/28/2017. There is a second area in the left mid upper abdomen which is more pronounced than the prior CAT scan of 06/28/2017. Both of these areas are associated with shotty subcentimeter lymph nodes but no abscess or free air. The surrounding bowel loops are normal. 4. The appendix is normal 5. Atherosclerotic vascular wall calcifications of aorta 6. There are multiple small hepatic cyst. 7. Hyperdense cyst upper pole of right kidney. This critical result was discussed with Dr. Robles on 07/02/2017, 10:00 PM and it was ascertained that the content and urgency of the report was understood at the time of direct communication. DICTATED BY: Ruben Verdin MD DATE/TIME DICTATED:07/02/172121 *Clinically, on admission 07/02/17, the patient appeared to be having a lower GI bleed. Statistically this would most likely be diverticular vs. angiodysplasia in etiology. Neoplasm usually does not bleed of this magnitude. The remote history of Crohn's disease was noted, off medication since his 20's, when he was remotely on a short course of prednisone and transfused at that time. Very rarely, Crohn's disease can erode into a vessel when it goes transmural, but this is probably less likely than the above probable diagnoses. He did not appear to have a rapid transit upper GI bleed. There was nothing clinically, historically, or radiographically to suggest an aortoenteric fistula. He was recently in [place] 06/28/17 - 06/30/17 on the surgical service, with a probable flare of Crohn's disease rather than appendicitis, & he was discharged on Cipro 500 mg po BID & Flagyl 500 mg po TID. 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 He was on a baby aspirin daily, but denied any history of SD or CVA. He had an apparent vasovagal event when attempting to defecate and/or pass blood in the ER, which subsided spontaneously , without the need for atropine. He reportedly had vasovagal events in the past. The elevated AST/ALT were noted (on Provastatin). *SUGGEST- 2 large bore IV. Strict I/O's. O2 prn. Surgical consult. ICU admit. *Await results of CTA abdomen. I left my number with [facility]. Empiric PPI (hx mild GERD, clinically without rapid transit UGI bleed). Hold baby ASA for now. No NSAIDS. T &C 2u PRBC. Check CBC Q6-8h for now. IVF: NS @ 100 cc/hr. Check ESR & CRP. Would recheck LFTs (r/o pericholangitis associated with IBD) & if still elevated, would check full Hep A, B, & C serologies, ROSELYN, AMA, Fe, TIBC, & ferritin, with consideration for RUQ sono. *Further workup (i.e.- angiography with Gelfoam embolization per IR vs. colonoscopy), depending on results of CTA, clinical course, & hemodynamic stability. DVT prophylaxis with mechanical ALPS. The above findings and recommendations were discussed with the patient and his , Karine Robison RN. I also spoke with them about the risks and benefits, respectively, of each of these procedures. I also spoke with Dr. Polo, Dr. Sanderson & the [facility] ICU medical housestaff. The patient's was given my office number. 1 hour of ICU care was spent on the patient. At the conclusion of my dictation, Dr. Verdin, of [facility], called me regarding the 07/02/17: CTA results- "No active bleeding seen. Normal AP. RLQ stranding with mild nodes. Normal TI. Stranding in the LLQ mesentery. Umbilical hernia. Mesh LLQ. 2 cm hyperdense cyst, upper pole right kidney. As no active bleed seen on CTA, will continue with bowel prep, with plans for colonoscopy in a.m. (+/- EGD if negative-> doubt UGI source, nl BUN, etc). The above was agin discussed with the ICU housestaff & the patient's . Problem List: 1. Lower GI bleed 2. Diverticula of colon 3. Crohn's disease 4. Elevated LFTs Copies To: Kin LYON,Magdaleno White MD,Ron Rowe; Gabe LYON,Popeye Bajwa; Maicol LYON ,Jorge A N. Consult Acknowledgment - Thank you for your consult request.
--- NOTE | 2017-07-02 21:39 | PN- Att Addend ---
Attending Addendum Attending Brief Note 61M PMH HTN, CAD presented 4 days ago with RLQ pain, seen in ED, found to have signs of acute appendicitis by CT that was evaluated by surgery and thought to be more colitis than diverticulitis, and discharged on Cipro and Flagyl. At that time he was having no diarrhea, constipation, or any other symptoms aside from RLQ pain. He presents today with an episode of bloody stool this morning. He was evaluated by the ED and admitted to medicine. His vitals were stable and his Hgb was 13.2. In the two hours after, patient had an additional 6 bloody bowel movements. On his most recent, he syncopized while on the commode. He was caught by his and myself, and gently led to his bed. He did not fall or hit his head. He regained consciousness after 1-2 minutes. His BP was 160/ 90 at this time. He was tachycardic to 120's and sinus, but improved to 80's after lying down. GI was consulted and a CTA of the abdomen was recommended. IV fluids were hung. Patient is currently stable. Plan - Admit to ICU - CTA abdomen - Surgery and GI consults - CBC q4h - IV PPI - IV hydration - Hold anti-hypertensives and ASA (and all remaining home medications) - ALPS for DVT PPx - Critical care consult
--- NOTE | 2017-07-02 22:39 | CT SCAN REPORT ---
EXAMINATION: CT ANGIOGRAM ABDOMEN AND PELVIS CLINICAL INFORMATION: Diverticular bleed versus ischemia. History of Crohn's disease. COMPARISON: CT scan abdomen pelvis 06/28/2017 TECHNIQUE: Multiple axial images were obtained through the abdomen and pelvis prior to and following the administration of 95 mL of Optiray 320 intravenous contrast. Coronal and sagittal reformatted images are performed at the CT scanner. No 3-D imaging performed. DLP: 859.72 mGy-cm FINDINGS: VASCULAR: There is atherosclerotic vascular wall calcifications of the aorta and iliac arteries there is normal enhancement of the celiac axis, SMA. Normal enhancement of the right and left renal arteries. There are 2 left-sided renal arteries and a single right-sided renal artery. There is no stenosis. There is no extravasation of contrast into the bowel. No evidence for active GI bleeding. LUNG BASES: The visualized lung bases are unremarkable. LIVER, GALLBLADDER, AND BILIARY TREE: There are scattered low attenuating lesions in right and left lobe of liver which are not enhancing postcontrast. These are consistent with hepatic cysts. Largest at the dome left lobe measuring 1.3 cm. There is no enhancing lesion. There is no hepatic bile duct dilatation. The gallbladder is unremarkable with no evidence of radiopaque gallstones, gallbladder wall thickening, or obvious pericholecystic inflammatory changes. PANCREAS: No acute change of the pancreas. No mass. No pancreatic duct dilatation. SPLEEN: Spleen normal in size and contour. No focal lesion. ADRENAL GLANDS: Adrenal glands are normal in size. No focal mass. KIDNEYS AND URETERS: In the upper pole of the right kidney there is a 2.5 cm hyperdense lesion. On precontrast study this has a density measurement of 50 Hounsfield units. After the administration of contrast this has a density measurement of 57 Hounsfield units, nonenhancing lesion. This is consistent with a hyperdense cyst. There is no renal or ureteral calculi. There is no hydronephrosis. BLADDER: Unremarkable. GASTROINTESTINAL TRACT: There are diverticula of the colon without diverticulitis. No acute change of the bowel. No bowel obstruction. No bowel wall thickening or edema. Moderate volume of stool throughout the colon. The appendix is normal. The small bowel loops are unremarkable. There is a small hiatal hernia. MESENTERY: There is subtle stranding in the mesentery around the cecum associated with small subcentimeter lymph nodes. This mesenteric stranding has reduced in severity since the exam of 06/28/2017. The terminal ileum is normal as are all the small bowel loops. There is also edema in the mesentery left side mid abdomen also with multiple small lymph nodes. This region, seen on axial image 32 (2) is more prominent than the prior CAT scan 06/28/2017. There is no abscess. Normal-appearing small bowel loops surround this region of the mesentery. Indeed there is no abscess throughout the abdomen. There is no free air. ABDOMINAL WALL: There is a fat-containing periumbilical hernia. Herniated fat pocket measures 2.5 x 4 x 1.2 cm. The defect in the wall measures about 7 mm. There are surgical mesh in the left groin with no recurrent hernia. LYMPH NODES: Normal. PELVIC VISCERA: Unremarkable. OSSEOUS STRUCTURES: Unremarkable. IMPRESSION: 1. No evidence of extravasation of contrast into the gastrointestinal track. Site of GI bleeding not defined. 2. There is diverticulosis of the colon but no evidence of diverticulitis. No acute change of bowel wall. No bowel obstruction. 3. There are regions of edema and stranding in the mesentery. There is an area in the left lower quadrant around the cecum. This is less pronounced however than the CAT scan of 06/28/2017. There is a second area in the left mid upper abdomen which is more pronounced than the prior CAT scan of 06/28/2017. Both of these areas are associated with shotty subcentimeter lymph nodes but no abscess or free air. The surrounding bowel loops are normal. 4. The appendix is normal 5. Atherosclerotic vascular wall calcifications of aorta 6. There are multiple small hepatic cyst. 7. Hyperdense cyst upper pole of right kidney. This critical result was discussed with Dr. Robles on 07/02/2017, 10:00 PM and it was ascertained that the content and urgency of the report was understood at the time of direct communication.
[2017-07-03] VITALS: BP 130/80
[2017-07-03 00:48] LABS: ABSOLUTE BASOPHIL COUNT 0 /CUMM (0.0-0.2); ABSOLUTE EOSINOPHIL COUNT 0.1 /CUMM (0.0-0.7); ABSOLUTE GRANULOCYTE CT 9.9 /CUMM (1.4-6.5); ABSOLUTE LYMPH COUNT 0.9 /CUMM (1.2-3.4); ABSOLUTE MONOCYTE COUNT 0.5 /CUMM (0.10-0.60); BASOPHIL % 0.4 % (0.0-2.0); EOSINOPHIL % 0.5 % (0-5); GRANULOCYTE % 86.2 % (42.2-75.2); HEMATOCRIT 33.1 % (42-52); MEAN CORPUSCULAR HGB 28.7 PG (27.0-31.0); MEAN CORPUSCULAR HGB CONC 34.1 G/DL (33.0-37.0); MEAN CORPUSCULAR VOLUME 84.2 FL (80.0-94.0); MEAN PLATELET VOLUME 7.6 FL (7.4-10.4); PLATELET COUNT 349 /CUMM (130-400); RBC DISTRIBUTION WIDTH 13.2 % (11.5-14.5); RED BLOOD CELL CT 3.93 /CUMM (4.70-6.10); WHITE BLOOD CELL COUNT 11.4 /CUMM (4.8-10.8)
[2017-07-03 05:12] LABS: ABSOLUTE BASOPHIL COUNT 0 /CUMM (0.0-0.2); ABSOLUTE EOSINOPHIL COUNT 0.1 /CUMM (0.0-0.7); ABSOLUTE GRANULOCYTE CT 6.7 /CUMM (1.4-6.5); ABSOLUTE LYMPH COUNT 1.1 /CUMM (1.2-3.4); ABSOLUTE MONOCYTE COUNT 0.7 /CUMM (0.10-0.60); BASOPHIL % 0.4 % (0.0-2.0); EOSINOPHIL % 0.9 % (0-5); GRANULOCYTE % 77.5 % (42.2-75.2); HEMATOCRIT 31.7 % (42-52); MEAN CORPUSCULAR HGB 27.9 PG (27.0-31.0); MEAN CORPUSCULAR VOLUME 84.6 FL (80.0-94.0); MEAN PLATELET VOLUME 7.2 FL (7.4-10.4); PLATELET COUNT 333 /CUMM (130-400); RBC DISTRIBUTION WIDTH 13.1 % (11.5-14.5); RED BLOOD CELL CT 3.75 /CUMM (4.70-6.10); WHITE BLOOD CELL COUNT 8.6 /CUMM (4.8-10.8)
[2017-07-03 08:00] VITALS: BP 146/72
--- NOTE | 2017-07-03 08:02 | PN- Att Addend ---
Attending Addendum Attending Brief Note Patient seen and examined. Overnight events noted. Currently resting comfortably and not in any acute distress. He has remained hemodynamically stable overnight. He completed his bowel prep overnight. He reported bloody stools during the prep but notes that the stools did clear up by the end. Denies any nausea vomiting. Denies any abdominal pain. Review of laboratory data shows his hemoglobin at a baseline of around 13 elevated this week when he was initially admitted. Hemoglobin level has trended down slowly to 10.5 earlier this a.m. Serum chemistry shows no elevation of his BUN. Vital Signs Date Time Temp Pulse Resp B/P B/P Pulse O2 O2 Flow FiO2 Mean Ox Delivery Rate 07/03 0400 96 Room Air 07/03 0000 97.7 90 18 130/80 97 Room Air 07/03 0000 97 Room Air 07/02 2207 96 Room Air 07/02 2102 98.6 82 18 161/76 99 Room Air 07/02 2022 81 18 144/74 97 Room Air 07/02 2017 82 18 140/71 97 Room Air 07/02 1923 98.4 94 18 177/91 97 Room Air 07/02 1837 87 171/82 07/02 1700 98.7 72 20 160/77 96 Room Air 07/02 1410 98.3 63 18 134/75 97 Room Air Room Air 07/02 1134 98.7 66 18 154/72 98 Room Air 07/02 0933 95.5 73 16 160/90 98 Room Air Gen. appearance: Well-developed, not in any acute distress. HEENT: Anicteric, mild,pallor, pupils equal and reactive. Heart: S1-S2 regular with no audible murmur Lungs: Clear to auscultation bilaterally Abdomen: Soft, nontender with normal bowel sounds Extremities: No pedal edema Laboratory Tests 07/03/17 0500: Anion Gap 12, Estimated GFR > 60, Glucose 112 H, Calcium 8.0 L, Phosphorus 3.5 , Magnesium 1.9, Total Bilirubin 0.7, Direct Bilirubin 0, AST 82 H, ALT 106 H, Alkaline Phosphatase 37, C-React Prot High Sens 5.3 H, Total Protein 5.9 L, Albumin 3.4 L, CBC w Diff NO MAN DIFF REQ, RBC 3.75 L, MCV 84.6, MCH 27.9, MCHC 33.0, RDW 13.1, MPV 7.2 L, Gran % 77.5 H, Lymphocytes % 12.9 L, Monocytes % 8.3, Eosinophils % 0.9, Basophils % 0.4, Absolute Granulocytes 6.7 H, Absolute Lymphocytes 1.1 L, Absolute Monocytes 0.7 H, Absolute Eosinophils 0.1, Absolute Basophils 0, ESR Westergren 12 H 07/03/17 0015: Anion Gap 9, Estimated GFR > 60, Glucose 114 H, Calcium 8.0 L, Phosphorus 3.4, Magnesium 1.9, Total Bilirubin 0.7, AST 86 H, ALT 111 H, Albumin 3.4 L, CBC w Diff NO MAN DIFF REQ, RBC 3.93 L, MCV 84.2, MCH 28.7, MCHC 34.1, RDW 13.2, MPV 7.6, Gran % 86.2 H, Lymphocytes % 8.2 L, Monocytes % 4.7, Eosinophils % 0.5, Basophils % 0.4, Absolute Granulocytes 9.9 H, Absolute Lymphocytes 0.9 L, Absolute Monocytes 0.5, Absolute Eosinophils 0.1, Absolute Basophils 0 07/02/172129: CBC w Diff Cancelled, WBC Cancelled, RBC Cancelled, Hgb Cancelled, Hct Cancelled , MCV Cancelled, MCH Cancelled, MCHC Cancelled, RDW Cancelled, Plt Count Cancelled, MPV Cancelled 07/02/172020: Anion Gap 10, Estimated GFR > 60, BUN/Creatinine Ratio 18.8, Troponin I < 0.01, CBC w Diff NO MAN DIFF REQ, RBC 4.14 L, MCV 84.5, MCH 28.1, MCHC 33.2, RDW 13.3 , MPV 7.3 L, Gran % 66.6, Lymphocytes % 21.1, Monocytes % 10.0 H, Eosinophils % 1.8, Basophils % 0.5, Absolute Granulocytes 9.3 H, Absolute Lymphocytes 3.0, Absolute Monocytes 1.4 H, Absolute Eosinophils 0.2, Absolute Basophils 0.1 07/02/17 1720: Anion Gap 11, Estimated GFR > 60, BUN/Creatinine Ratio 17.5, Glucose 93, Calcium 8.8, CBC w Diff NO MAN DIFF REQ, RBC 4.76, MCV 85.4, MCH 28.0, MCHC 32.8 L, RDW 13.5, MPV 7.4, Gran % 67.1, Lymphocytes % 19.3 L, Monocytes % 10.2 H, Eosinophils % 2.6, Basophils % 0.8, Absolute Granulocytes 5.3, Absolute Lymphocytes 1.5, Absolute Monocytes 0.8 H, Absolute Eosinophils 0.2, Absolute Basophils 0.1, Ref Lab Test Result Pending 07/02/17 1125: Urine Color YEL, Urine Clarity CLEAR, Urine pH 6.5, Ur Specific [place] 1.020, Urine Protein NEG, Urine Ketones NEG, Urine Nitrite NEG, Urine Bilirubin NEG, Urine Urobilinogen 0.2, Ur Leukocyte Esterase NEG, Ur Microscopic SEDIMENT EXAMINED, Urine RBC RARE, Urine Hemoglobin TRACE-LYSED H, Urine Glucose NEG 07/02/17 1024: Anion Gap 12, Estimated GFR > 60, BUN/Creatinine Ratio 22.5, Glucose 103 H, Lactic Acid 1.0, Calcium 9.1, Iron 58, TIBC 336, Ferritin 325.0, Total Bilirubin 0.6, AST 106 H, ALT 117 H, Alkaline Phosphatase 46, Total Protein 7.1, Albumin 4.3, Globulin 2.8, Albumin/Globulin Ratio 1.5, PT 14.4 H, INR 1.32 H, APTT 31, CBC w Diff NO MAN DIFF REQ, RBC 5.02, MCV 84.8, MCH 26.3 L, MCHC 31.1 L, RDW 13.1, MPV 7.6, Gran % 71.0, Lymphocytes % 16.6 L, Monocytes % 9.9 H, Eosinophils % 2.2, Basophils % 0.3, Absolute Granulocytes 4.8, Absolute Lymphocytes 1.1 L, Absolute Monocytes 0.7 H, Absolute Eosinophils 0.2, Absolute Basophils 0, ROSELYN Titer Pending, Anti-Nuclear Antibody Pending Microbiology 07/02 2129 UPPER RESP: Surveillance Culture - RECD 07/02 2129 GI: Surveillance Culture - RECD 07/02 1124 STOOL: Clostridium difficile Toxin A & B - RES 07/02 1124 STOOL: Stool Culture - RES problems: 1. Lower gastrointestinal bleeding 2. Acute blood loss anemia 3. History of Crohn's disease 4. History of diverticula in the colon 5. Transaminitis Plan: -Patient scheduled to undergo colonoscopy today. -Monitor H&H every 12 hours. Transfuse to keep hemoglobin greater than 8. -Transaminitis is slowly improving. LFTs were within normal limits earlier this week. Viral hepatitis less likely given recent normal levels.Hep C serology is negative. Hepatitis B serology was not done. No hepatobiliary pathology was noted on CT abdomen and CT angiography. Follow-up with the GI service if a right upper quadrant sonogram as well as hepatitis A and B serology is still required. -Follow-up with the GI service if patient requires continue antibiotic therapy. Leukocytosis is present from admission was likely reactive and secondary to bleeding. Patient remains afebrile. -Awaiting evaluation by the general surgery service. -Change fluids to D5 half normal saline while n.p.o. -Plan of care discussed with nursing staff and medical house staff.
--- NOTE | 2017-07-03 08:31 | Cons- CRCU ---
General Information and HPI Allergies/Medications Allergies: Coded Allergies: No Known Allergies (06/28/17) Home Med List: Amlodipine Besylate 5 MG TABLET 1 TAB PO DAILY HEART (Reported) Aspirin (Aspirin*) 81 MG TAB.CHEW 1 TAB PO DAILY HEART HEALTH (Reported) Atenolol 50 MG TABLET 1 TAB PO DAILY HEART (Reported) Ciprofloxacin HCl (Cipro) 500 MG TABLET 1 TAB PO BID ileitis . Lisinopril 20 MG TABLET 1 TAB PO DAILY HEART (Reported) Metronidazole (Flagyl) 500 MG TABLET 1 TAB PO TID ileitis do not take with alcohol Omeprazole 20 MG CAPSULE.DR 1 CAP PO DAILY GI (Reported) Pravastatin Sodium 40 MG TABLET 1 TAB PO QPM CHOLESTEROL (Reported) Past History Travel History Traveled to [place] past 21 day No Medical History Blood Transfusion Hx: Yes (in his 20's at dx of Crohn's) Neurological: NONE EENT: NONE Cardiovascular: AFIB (2009- chem cardiovert-> NSR), hypertension, hyperlipidemia Respiratory: NONE Gastrointestinal: NONE (? 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 FH: brain aneurysm FATHER (OBS). , Age 89; Cause: Fall. FH: HTN (hypertension) 1ST COUSIN (Crohn's disease). Psychosocial History Where Do You Live? Home Who Do You Live With? spouse Services at Home: None Primary Language: Tuvaluan Smoking Status: Never Smoked ETOH Use: occasional use (rare) Illicit Drug Use: denies illicit drug use Living Will? no Power of Product Marketing Manager/HCP? yes Name of POA/HCP: pt's , Karine Fisher SHEREE Bolden Other Social History: . 2 dtrs- [employer]. No cigarettes, rare EtOH, no drugs. [employer] store. Functional Ability ADLs Independent: dressing, eating, toileting, bathing. Ambulation: independent IADLs Independent: shopping, housework, finances, food prep, telephone, transportation , medication admin. Employment History Employment: Employed Profession/Employer: [employer] Assessment/Plan [facility] Consult Acknowledgment - Thank you for your consult request.
--- NOTE | 2017-07-03 08:38 | PN- Resident CRCU ---
Tyrell LYON,[facility] 07/03/17 0838: Subjective HPI/CRCU Issues: Patient had reported at least 9 bloody bowel movements since yesterday according to his . No longer having bloody bowel movements, but the is reporting that the patient continues to have yellow woozy bowel movements. Had an EGD and colonoscopy performed this morning. Objective Vital Signs & I&O Last 8 Hrs of Vitals and I&O: Laboratory Tests 07/03 07/03 0842 0500 Chemistry Sodium (137 - 145 mmol/L) 142 Potassium (3.5 - 5.1 mmol/L) 4.1 Chloride (98 - 107 mmol/L) 105 Carbon Dioxide (22 - 30 mmol/L) 26 Anion Gap (5 - 16) 12 BUN (9 - 20 mg/dL) 10 Creatinine (0.7 - 1.2 mg/dL) 0.8 Estimated GFR (>60 ml/min) > 60 Glucose (65 - 99 mg/dL) 112 H Calcium (8.4 - 10.2 mg/dL) 8.0 L Phosphorus (2.5 - 4.5 mg/dL) 3.5 Magnesium (1.6 - 2.3 mg/dL) 1.9 Total Bilirubin (0.2 - 1.3 mg/dL) 0.7 Direct Bilirubin (< 0.4 mg/dL) 0 AST (17 - 59 U/L) 82 H ALT (21 - 72 U/L) 106 H Alkaline Phosphatase (< 127 U/L) 37 C-React Prot High Sens (1.0 - 3.0 mg/L) 5.3 H Total Protein (6.3 - 8.2 g/dL) 5.9 L Albumin (3.5 - 5.0 g/dL) 3.4 L Hematology CBC w Diff NO MAN DIFF REQ WBC (4.8 - 10.8 /CUMM) 8.6 RBC (4.70 - 6.10 /CUMM) 3.75 L Hgb (14.0 - 18.0 G/DL) 10.5 L Hct (42 - 52 %) 31.7 L MCV (80.0 - 94.0 FL) 84.6 MCH (27.0 - 31.0 PG) 27.9 MCHC (33.0 - 37.0 G/DL) 33.0 RDW (11.5 - 14.5 %) 13.1 Plt Count (130 - 400 /CUMM) 333 MPV (7.4 - 10.4 FL) 7.2 L Gran % (42.2 - 75.2 %) 77.5 H Lymphocytes % (20.5 - 51.1 %) 12.9 L Monocytes % (1.7 - 9.3 %) 8.3 Eosinophils % (0 - 5 %) 0.9 Basophils % (0.0 - 2.0 %) 0.4 Absolute Granulocytes (1.4 - 6.5 /CUMM) 6.7 H Absolute Lymphocytes (1.2 - 3.4 /CUMM) 1.1 L Absolute Monocytes (0.10 - 0.60 /CUMM) 0.7 H Absolute Eosinophils (0.0 - 0.7 /CUMM) 0.1 Absolute Basophils (0.0 - 0.2 /CUMM) 0 ESR Westergren (0 - 10 MM) 12 H Serology Hepatitis A IgM Ab Cancelled Hep Bs Antigen Cancelled Hep B Core IgM Ab Conf Cancelled Hepatitis C Antibody Cancelled 07/03 07/02 0015 2130 Chemistry Sodium (137 - 145 mmol/L) 139 Potassium (3.5 - 5.1 mmol/L) 4.4 Chloride (98 - 107 mmol/L) 105 Carbon Dioxide (22 - 30 mmol/L) 25 Anion Gap (5 - 16) 9 BUN (9 - 20 mg/dL) 12 Creatinine (0.7 - 1.2 mg/dL) 0.8 Estimated GFR (>60 ml/min) > 60 Glucose (65 - 99 mg/dL) 114 H Calcium (8.4 - 10.2 mg/dL) 8.0 L Phosphorus (2.5 - 4.5 mg/dL) 3.4 Magnesium (1.6 - 2.3 mg/dL) 1.9 Total Bilirubin (0.2 - 1.3 mg/dL) 0.7 AST (17 - 59 U/L) 86 H ALT (21 - 72 U/L) 111 H Albumin (3.5 - 5.0 g/dL) 3.4 L Hematology CBC w Diff NO MAN DIFF REQ Cancelled WBC (4.8 - 10.8 /CUMM) 11.4 H Cancelled RBC (4.70 - 6.10 /CUMM) 3.93 L Cancelled Hgb (14.0 - 18.0 G/DL) 11.3 L Cancelled Hct (42 - 52 %) 33.1 L Cancelled MCV (80.0 - 94.0 FL) 84.2 Cancelled MCH (27.0 - 31.0 PG) 28.7 Cancelled MCHC (33.0 - 37.0 G/DL) 34.1 Cancelled RDW (11.5 - 14.5 %) 13.2 Cancelled Plt Count (130 - 400 /CUMM) 349 Cancelled MPV (7.4 - 10.4 FL) 7.6 Cancelled Gran % (42.2 - 75.2 %) 86.2 H Lymphocytes % (20.5 - 51.1 %) 8.2 L Monocytes % (1.7 - 9.3 %) 4.7 Eosinophils % (0 - 5 %) 0.5 Basophils % (0.0 - 2.0 %) 0.4 Absolute Granulocytes (1.4 - 6.5 /CUMM) 9.9 H Absolute Lymphocytes (1.2 - 3.4 /CUMM) 0.9 L Absolute Monocytes (0.10 - 0.60 /CUMM) 0.5 Absolute Eosinophils (0.0 - 0.7 /CUMM) 0.1 Absolute Basophils (0.0 - 0.2 /CUMM) 0 Serology Hepatitis A IgM Ab (NONREACTIVE) NONREACTIVE Hep Bs Antigen (NONREACTIVE) NONREACTIVE Hep B Core IgM Ab Conf (NONREACTIVE) NONREACTIVE Hepatitis C Antibody (NONREACTIVE) NONREACTIVE 07/02 1720 Chemistry Sodium (137 - 145 mmol/L) 141 141 Potassium (3.5 - 5.1 mmol/L) 3.7 4.0 Chloride (98 - 107 mmol/L) 107 104 Carbon Dioxide (22 - 30 mmol/L) 24 27 Anion Gap (5 - 16) 10 11 BUN (9 - 20 mg/dL) 15 14 Creatinine (0.7 - 1.2 mg/dL) 0.8 0.8 Estimated GFR (>60 ml/min) > 60 > 60 BUN/Creatinine Ratio (7 - 25 %) 18.8 17.5 Glucose (65 - 99 mg/dL) 93 Calcium (8.4 - 10.2 mg/dL) 8.8 Troponin I (<0.11 ng/ml) < 0.01 Hematology CBC w Diff NO MAN DIFF REQ NO MAN DIFF REQ WBC (4.8 - 10.8 /CUMM) 14.0 H 7.9 RBC (4.70 - 6.10 /CUMM) 4.14 L 4.76 Hgb (14.0 - 18.0 G/DL) 11.6 L 13.3 L Hct (42 - 52 %) 35.0 L 40.6 L MCV (80.0 - 94.0 FL) 84.5 85.4 MCH (27.0 - 31.0 PG) 28.1 28.0 MCHC (33.0 - 37.0 G/DL) 33.2 32.8 L RDW (11.5 - 14.5 %) 13.3 13.5 Plt Count (130 - 400 /CUMM) 367 350 MPV (7.4 - 10.4 FL) 7.3 L 7.4 Gran % (42.2 - 75.2 %) 66.6 67.1 Lymphocytes % (20.5 - 51.1 %) 21.1 19.3 L Monocytes % (1.7 - 9.3 %) 10.0 H 10.2 H Eosinophils % (0 - 5 %) 1.8 2.6 Basophils % (0.0 - 2.0 %) 0.5 0.8 Absolute Granulocytes (1.4 - 6.5 /CUMM) 9.3 H 5.3 Absolute Lymphocytes (1.2 - 3.4 /CUMM) 3.0 1.5 Absolute Monocytes (0.10 - 0.60 /CUMM) 1.4 H 0.8 H Absolute Eosinophils (0.0 - 0.7 /CUMM) 0.2 0.2 Absolute Basophils (0.0 - 0.2 /CUMM) 0.1 0.1 Miscellaneous Ref Lab Test Result Pending Vital Signs Date Time Temp Pulse Resp B/P B/P Pulse O2 O2 Flow FiO2 Mean Ox Delivery Rate 07/03 0800 98 Room Air 07/03 0800 97.7 78 20 146/72 98 Room Air 07/03 0400 96 Room Air 07/03 0000 97.7 90 18 130/80 97 Room Air 07/03 0000 97 Room Air 07/02 2206 96 Room Air 07/02 2101 98.6 82 18 161/76 99 Room Air 07/02 2021 81 18 144/74 97 Room Air 07/02 2016 82 18 140/71 97 Room Air 07/02 1923 98.4 94 18 177/91 97 Room Air 07/02 1837 87 171/82 07/02 1700 98.7 72 20 160/77 96 Room Air Intake & Output 07/03 1600 05/ 0800 05/ 0000 Intake Total 1450 4653 1300 Output Total 575 3650 375 Balance 875 1003 925 Intake, IV 5953 426 0524 Intake, Oral 450 4000 Output, Stool 3050 Output, Urine 575 600 375 Patient 167 lb Weight Weight Bed scale Measurement Method Intake & Output 07/03 1600 Intake Total 1450 Output Total 575 Balance 875 Intake, IV 1000 Intake, Oral 450 Output, Urine 575 Exam General Appearance: no apparent distress, alert, awake Respiratory: normal breath sounds Cardiovascular: regular rate/rhythm Gastrointestinal: soft, non-tender Extremities: 2+ radial pulses Current Medications: Current Medications Sig/Malvin Start time Last Medication Dose Route Stop Time Status Admin Ciprofloxacin 400 MG Q12 07/03 0900 AC 07/03 Dextrose/Water 200 ML IV 0952 Ciprofloxacin 400 MG Q12 07/02 2100 DC Dextrose/Water 200 ML IV Ciprofloxacin 0 .STK-MED ONE 07/02 1556 DC PO Ciprofloxacin 500 MG ONCE ONE 07/02 1545 DC 07/02 PO 07/02 1546 1600 Metronidazole 500 MG IQ8 07/03 0000 AC 07/03 N/A 1 UNIT IV 0741 Metronidazole 500 MG IQ8 07/02 1930 DC N/A 1 UNIT IV Metronidazole 0 .STK-MED ONE 07/02 1556 DC PO Metronidazole 500 MG ONCE ONE 07/02 1545 DC 07/02 PO 07/02 1546 1601 Ondansetron HCl 4 MG ONCE ONE 07/02 2145 DC 07/02 IV 07/02 2145 214 Pantoprazole Sodium 40 MG DAILY 07/03 0900 AC 07/03 IV 0952 Pantoprazole Sodium 40 MG ONCE ONE 07/02 2144 DC 07/02 IV 07/02 2145 2155 Polyethylene Glycol 1 GAL ONCE ONE 07/02 2129 DC 07/02 PO 07/02 2130 2328 Pravastatin Sodium 40 MG 1700 / 1700 AC PO Sodium Chloride 1,000 ML Q10H 07/02 2345 DC 07/03 IV 0952 Sodium Chloride 1,000 ML BOLUS ONE 07/02 2029 DC IV 07/02 2128 Sodium Chloride 1,000 ML BOLUS ONE 07/02 2014 DC 05/ IV 07/02 Sodium Chloride 1,000 ML BOLUS ONE 07/02 2014 DC IV 07/02 2113 Sodium Chloride 1,000 ML ONCE ONE 07/02 1930 DC 07/02 IV 07/03 0209 1940 Trimethobenzamide HCl 200 MG ONCE ONE 07/02 2244 DC 07/02 IM 07/02 2245 225 Impression/Plan Impression/Problem List Impression: A: 61 y/o male with a past medical history of Crohn's disease, HTN, HLD, afib, Ca oxalate renal stones, remote umbilical hernia repair & B/L IH repairs, presenting for GI bleed Problems: #GI Bleeding in the setting of crohns disease. The patient's reported the patient has had 9 bloody bowel movements since admission. The states that there was a rapid response call due to altered mental status/syncope in the emergency department. Most likely this was due to his anemia. Initial hemoglobin and hematocrit 13.2/42.5. Patient was initially NPO and advanced to regular diet after EGD and colonoscopy. CTA revealed no signs of bleeding but reigons of edema/stranding in mesentery, hepatic and renal cysts. EGD and colonoscopy revealed extended left sided diverticuli with presumed resolved diverticular bleed, inflammation of ICV and terminal ileum, 3cm sliding hiatal hernial pouch, and incidental sessile gastric polyps. Current H/H 10.5/31.7 -f/u surgical consult -Continue ciprofloxacin and metronidazole for Crohn's (7-10 days total) -Continue Protonix -Continue monitoring H&H every 12 hours -cont to hold aspirin. NO NSAIDS. -Continue 2 large bore IV -will require outpatient pillcam to restage crohns and for GI bleed with plans for semi-elective repeat colonoscopy with biopsies #transaminitis AST initially elevated at 106, ALT elevated at 117. -unclear cause at this time -pt advisued semi elective RUQ u/s -f/u abigail, AMA #hepatic and renal cyst -will require outpatient follow up #chronic medical problems:htn hld -Continue pravastatin -holding Holding Lisinopril, atenolol, Norvasc, aspirin #FULL CODE #DVT prophylaxis: ALPS Problem List: 1. Elevated LFTs 2. Crohn's disease 3. Diverticula of colon 4. Lower GI bleed Pain Ratin Tomorrow's Labs & Rationales: cbc bep Plan DVT/Prophylaxis: opal Mitchell MD,[facility] 07/03/17 1035: Attending MD Review Statement Attending Sign Off Attending Cosign Statement: I have: examined this patient, reviewed aval EMR data, personally reviewd images, discussd w/resident/PA/POKER MACHINE ATTENDANT, discussed mgmt plan w/susan, discussed mgmt plan w/CM, discussed mgmt plan w/pt, agreed w/resident/PA/POKER MACHINE ATTENDANT, amended to note. Other Findings: S/p colonoscopy today No active bleeding prob resolved diverticular bleed Issues LGI bleed s/p scope prob diverticular bleed which ortiz stopped H/o crohns and no active exacerbation Blood loss anemia stable REC stable Ok to be transferred to the floor later today Cont to monitor closely Will follow Further plan per gi
--- NOTE | 2017-07-03 08:38 | PN- Gastroenterology ---
Assessment/Plan GI Assessment/Recommendations: 61 y/o male, HTN, HLD, remote afib 2009 (chemically cardioverted to NSR then, after a short course of Coumadin/Lovenox; off A/C tx x years), on baby ASA 81 mg daily (denies [place] or CVA), Ca oxalate renal stones, remote umbilical hernia repair & B/L IH repairs, with a remote history of Crohn's disease in his 20s, at which point, he presented with bloody diarrhea & was on a very short course of Prednisone. He was transfused at that time. He had been off medications since then, as his Crohn's disease had been essentially asymptomatic. He had never been on mesalamine, immunomodulators or biologic agents. He was not certain as to the exact location of the Crohn's disease then, but he thinks it might have been the ileum. Aside from a 1st cousin with Crohn's disease, he denied any FHx of additional GI disease, GI Ca, bleeding disorders, or inherited liver disease. 05/11/07: EGD with bx/colonoscopy to TI with bx per Dr. Renetta Cormier (done for screening, remote hx Crohn's, & GERD)- 4 cm sliding HH from 40-44 cm & tiny prepyloric antral nodule- bx: mild CAG, HP- neg, benign. Cecal lipoma, ileitis, & mild sigmoid diverticula. Bxs TI: Focal acute & chronic inflammation with surface erosion, reactive epithelial atypia & fibrinopurulent exudate, most c/w Crohn's disease. No granuloma, dysplasia, or CA. The patient had not seen any GI M.D. since. He took Omeprazole for reflux, which was stable on PPI. The patient was recently admitted to [facility] 06/28/17 - 06/30/17, presenting with RLQ pain starting 06/24/17, for which he took a few Advil. There were no fevers, chills, or jaundice. There was no nausea, vomiting, diarrhea, overt GI bleeding, or melena. The patient saw his PMD for the above, who rx an outpt CT AP with IV contrast on 06/28/17. 06/28/17: CT ABD & PELVIS W IV CONTRAST- IMPRESSION: 1. The imaging findings are compatible with diagnosis of acute appendicitis. 2. A 2.4 x 2.2 cm lesion at the upper pole the right kidney with attenuation of 60 Hounsfield units could represent a hyperdense cyst rather than a solid mass. Recommend follow-up with renal ultrasound. 3. Small fat-containing midline abdominal wall hernia. Post LIH repair. 4. Scattered hepatic cysts, max 1.5 cm, nl GB, no dilated ducts. 5. Mild sigmoid diverticulosis coli w/o diverticulitis. 6. ASHD of abdominal aorta & iliac arteries, w/o aneurysm. 7. L2-L3 DJD. The acute/critical test result was discussed with Dr. Bernal at 3:12 pm on 06/28/2017 and it was ascertained that the content and the importance of the findings was understood at the time of the direct communication. DICTATED BY: José Miguel Wilkerson MD DATE/TIME DICTATED:06/28/17 / 1458 *Addendum: This patient has a history of Crohn disease. It should be noted that the fat stranding in the right lower quadrant is primarily located around the collapsed cecum and base of the appendix. The appendiceal wall is abnormally thickened at its junction with the cecum, but this could be reactive to cecal inflammation from Crohn disease. The appendiceal lumen contains some gas and fluid, and the appendix tapers in diameter as it approaches its tip. There is mild circumferential wall thickening of the terminal ileum, but no overt edema in the bowel wall or fat stranding around the ileum. *The inflammatory changes in the right lower quadrant could reflect a flare of patient's inflammatory bowel disease in the cecum rather than acute appendicitis. Addendum Signed by: José Miguel Wilkerson MD 06/28/17 3184 The patient was sent to the [facility] and was admitted to Dr. Milian's surgical service. He was seen by Dr. Yarbrough in inpatient GI consultation 10/09. At that time, WBC 6.9, H/H 13.1/39.5, PLT 295, CRP 5.5, normal CMP except TBil 1.4. The patient was treated with IV antibiotics, switched to po Cipro 500 mg po BID & Flagyl 500 mg po TID, upon D/C 06/30/17. The thoughts were that he probably had a flare of Crohn's disease (albeit, atypical course over the years), rather than appendicitis. Plans were to eventually have an outpatient colonoscopy. He also had an outpatient appointment with urology to follow up the hyperdense right renal cyst noted on CT. On 07/02/17 at approximately 4 a.m., the patient initially had what was described as "bloody diarrhea", followed by pure bright red blood per rectum 4 times at home. He arrived at the [place] ER 07/02/17 at 9:27 a.m. Upon arrival, BP 160/90, P 73, R 16, T 95.5, O2 sat RA 98%. He was given IV NS, IV Cipro & IV Flagyl in the ER. His initial vitals and HCT (42.5) were exceptionally stable, and when I was notified by Dr. Morton about the patient at approximately 11:45 AM, I was led to believe that the patient was being discharged to home for outpatient colonoscopy. When called again this evening at 7:30 p.m., when I found out the patient had already been admitted for LGI bleeding, I advised a CTA of the abdomen, which was done just prior to me seeing the patient. CTA results were pending. The patient had approximately 5 more episodes of rectal bleeding in the ER, followed by what appeared to be a vasovagal event at 8:18 PM, while passing blood in the toilet. There was no chest pain or shortness of breath. The bleeding was painless, without any abdominal pain or rectal pain. There was no melena. The patient denied any nausea, vomiting, or hematemesis. He had mild symptoms of GERD which were chronic in nature. He denied any constipation, obstipation, or tenesmus. He had no rashes or acute arthralgias. He denied any significant weight loss or change in appetite. He denied any fevers, chills, or jaundice. He had no symptoms of UTI or URI. I winessed a large amount of dark red blood & clots in the commode, without stool. 07/02/17: 10:24: WBC 6.8, H/H 13.2/42.5, MCV 84.8, RDW 13.1, PLT 356, PT 14.4, INR 1.32, PTT 31, glu 103, BUN/Cr 18/0.8, GFR > 60, na 141, K 4.3, HCO3 26, AG 12, lactate 1.0, ca 9.1, alb 4.3, glob 2.8, TBil 0.6, alk phos 46, *AST 106, * ALT 117 07/02/17: 17:20: WBC 7.9, H/H 13.3/40.6, PLT 350, glu 93, BUN/Cr 14/1.8, GFR > 60, Na 141, K 4.0, HCO3 27, AG 11, Ca 8.8 07/02/17: 20:21: WBC 14, H/H 11.6/35, PLT 367, BUN/Cr 15/0.8, GFR > 60, Na 141. K 3.7, HCO3 24, AG 10, troponin < 0.01 07/02/17: ER: Stool C. diff toxin A & B- negative; *stool C&S, Shiga toxin- pending. 07/02/17: *EKG- pending. 07/02/17: *CT ABD & PELVIS ANGIOGRAM- IMPRESSION: 1. *No evidence of extravasation of contrast into the gastrointestinal track. Site of GI bleeding not defined. 2. There is diverticulosis of the colon but no evidence of diverticulitis. No acute change of bowel wall. No bowel obstruction. 3. There are regions of edema and stranding in the mesentery. There is an area in the left lower quadrant around the cecum. This is less pronounced however than the CAT scan of 06/28/2017. There is a second area in the left mid upper abdomen which is more pronounced than the prior CAT scan of 06/28/2017. Both of these areas are associated with shotty subcentimeter lymph nodes but no abscess or free air. The surrounding bowel loops are normal. 4. The appendix is normal 5. Atherosclerotic vascular wall calcifications of aorta 6. There are multiple small hepatic cyst. 7. Hyperdense cyst upper pole of right kidney. This critical result was discussed with Dr. Robles on 07/02/2017, 10:00 PM and it was ascertained that the content and urgency of the report was understood at the time of direct communication. DICTATED BY: Ruben Verdin MD DATE/TIME DICTATED:07/02/172121 *Clinically, on admission 07/02/17, the patient appeared to be having a lower GI bleed. Statistically this would most likely be diverticular vs. angiodysplasia in etiology. Neoplasm usually does not bleed of this magnitude. The remote history of Crohn's disease was noted, off medication since his 's, when he was remotely on a short course of prednisone and transfused at that time. Very rarely, Crohn's disease can erode into a vessel when it goes transmural, but this is probably less likely than the above probable diagnoses. He did not appear to have a rapid transit upper GI bleed. There was nothing clinically, historically, or radiographically to suggest an aortoenteric fistula. He was recently in [place] [facility] 06/28/17 - 06/30/17 on the surgical service, with a probable flare of Crohn's disease rather than appendicitis, & he was discharged on Cipro 500 mg po BID & Flagyl 500 mg po TID. He had taken a few NSAIDs last week, at the time of his RLQ pain, [employer]. He was on a baby aspirin daily, but denied any history of [place] or CVA. He had an apparent vasovagal event when attempting to defecate and/or pass blood in the ER, which subsided spontaneously , without the need for atropine. He reportedly had vasovagal events in the past. The elevated AST/ALT were noted (on Provastatin). 07/02/17: Stool C&S, Shiga toxin, & C. difficile toxin A&B- all negative. 07/02/17: *Fe 58, TIBC 336, Fe sat 17.3%, ferritin 325. 07/02/17: *ROSELYN, *AMA- pending 07/03/17: *Hep A Ab, Hep Bs Ag, Hep C Ab, Hep B core Ab- all negative. 07/03/17: 0015: WBC 11.4 (86% gran/10 gran Ab), H/H 11.3/33.1, MCV 84.2, RDW 13.2, PLT 349, glu 114, BUN/Cr 12/0.8, GFR > 60, Na 139, K 4.4, HCO3 25, AG 9, Mg 1.9, Ca 8.0, PO4 3.4, alb 3.4, TBil 0.7, AST 86, ALT 111 07/03/17: 0500: WBC 8.6, H/H 10.5/31.7, PLT 333, *ESR 12, glu 112, BUN/Cr 10/0.8 , GFR > 60, Na 141, K 4.1, HCO3 26, AG 12, Mg 1.9, Ca 8.0, PO4 3.5. alb 3.4, glob 2.5, TBil 0.7, alk phos 37, AST 82, ALT 106 *As of 07/03/17, patient was hemodynamically stable, normotensive, non- tachycardic & afebrile, with O2 sat RA 98%. He completed the gallon of GoLytely & was NPO, on IV NS @ 100 cc/hr. He remained in the ICU. His GI bleeding seemed to have subsided. His H/H had dropped, as expected, but he had not required any tranfusion. He denied any fevers, chills, CP, SOB, abdominal pain, nausea, vomiting, hematemesis, melena, or recurrent BRBPR. He was resting comfortably. His baby ASA was on hold. He was on IV Protonix 40 mg daily for GERD. He remained on empiric IV Cipro & Flagyl for his Crohn's (rather than AP). A surgical consult was still pending. *SUGGEST- 2 large bore IV. Strict I/O's. O2 prn. Surgical consult. ICU admit. Empiric PPI (hx mild GERD, clinically without rapid transit UGI bleed). Hold baby ASA for now. No NSAIDS. T&C 2u PRBC. Check CBC Q6-8h for now. IVF: NS @ 100 cc/hr. * Elevated LFTs- AST/ALT noted (r/o pericholangitis associated with IBD, ? statin related, r/o fatty liver, etc). Await 07/02/17: ROSELYN, AMA. *Advise semi-elective RUQ sono. DVT prophylaxis with mechanical ALPS. *Await colonoscopy (possibly with EGD to follow) later this a.m. The above findings and recommendations were again discussed with the patient and his , Karine Robison RN. The risks & benefits of colonoscopy/EGD were discussed with the patient & his , & informed consent was obtained from the patient. I also spoke with the [facility] medical housestaff. Further GI recommendations to follow, depending on endoscopic findings & clinical course. Problem List: 1. Lower GI bleed 2. Diverticula of colon 3. Crohn's disease 4. Elevated LFTs Subjective Subjective: 07/02/17: Stool C&S, Shiga toxin, & C. difficile toxin A&B- all negative. 07/02/17: *Fe 58, TIBC 336, Fe sat 17.3%, ferritin 325. 07/02/17: *ROSELYN, *AMA- pending 07/03/17: *Hep A Ab, Hep Bs Ag, Hep C Ab, Hep B core Ab- all negative. 07/03/17: 0015: WBC 11.4 (86% gran/10 gran Ab), H/H 11.3/33.1, MCV 84.2, RDW 13.2, PLT 349, glu 114, BUN/Cr 12/0.8, GFR > 60, Na 139, K 4.4, HCO3 25, AG 9, Mg 1.9, Ca 8.0, PO4 3.4, alb 3.4, TBil 0.7, AST 86, ALT 111 07/03/17: 0500: WBC 8.6, H/H 10.5/31.7, PLT 333, *ESR 12, glu 112, BUN/Cr 10/0.8 , GFR > 60, Na 141, K 4.1, HCO3 26, AG 12, Mg 1.9, Ca 8.0, PO4 3.5. alb 3.4, glob 2.5, TBil 0.7, alk phos 37, AST 82, ALT 106 *As of 07/03/17, patient was hemodynamically stable, normotensive, non- tachycardic & afebrile, with O2 sat RA 98%. He completed the gallon of GoLytely & was NPO, on IV NS @ 100 cc/hr. He remained in the ICU. His GI bleeding seemed to have subsided. His H/H had dropped, as expected, but he had not required any tranfusion. He denied any fevers, chills, CP, SOB, abdominal pain, nausea, vomiting, hematemesis, melena, or recurrent BRBPR. He was resting comfortably. His baby ASA was on hold. He was on IV Protonix 40 mg daily for GERD. He remained on empiric IV Cipro & Flagyl for his Crohn's (rather than AP). A surgical consult was still pending. Review of Systems: Full 14 point ROS otherwise noncontributory, & as above. Constitutional: Reports: no symptoms EENTM: Reports: no symptoms. Cardiovascular: Reports: no symptoms. Respiratory: Reports: no symptoms. GI: Reports: see HPI, bloody stool-> *resolved. Genitourinary: Reports: no symptoms. Psychiatric: Reports: no symptoms. Objective Vital Signs and I&Os Vital Signs Date Time Temp Pulse Resp B/P B/P Pulse O2 O2 Flow FiO2 Mean Ox Delivery Rate 07/03 0800 98 Room Air 07/03 0800 97.7 78 20 146/72 98 Room Air 07/03 0400 96 Room Air 07/03 0000 97.7 90 18 130/80 97 Room Air 07/03 0000 97 Room Air 07/02 2207 96 Room Air 07/02 2102 98.6 82 18 161/76 99 Room Air 07/02 202 81 18 144/74 97 Room Air 07/02 2017 82 18 140/71 97 Room Air 07/02 1923 98.4 94 18 177/91 97 Room Air 07/02 1837 87 171/82 07/02 1700 98.7 72 20 160/77 96 Room Air 07/02 1410 98.3 63 18 134/75 97 Room Air Room Air 07/02 1134 98.7 66 18 154/72 98 Room Air Intake & Output 07/03 1600 07/03 0400 07/02 1600 07/02 0400 07/01 1600 07/01 0400 Intake Total 4653 1300 Output Total 3650 375 Balance 1003 925 Intake, IV 653 1300 Intake, Oral 4000 Output, Stool 3050 Output, Urine 600 375 Patient 167 lb 175 lb Weight Weight Bed scale Reported by Patient Measurement Method Physical Exam: Well-developed, well-nourished male, in no apparent distress. Sclera anicteric. Conjunctiva pink. Oropharynx clear. No oral thrush. No apthous ulcers. There is no adenopathy, thyromegaly, or JVD. No peripheral stigmata of inflammatory bowel disease or chronic liver disease on exam. No spiders on the anterior chest wall. No gynecomastia. No CVA tenderness. No spine tenderness. Lungs: clear to A &P. No wheezing, rales, or rhonchi. Heart exam: regular rate rhythm, S1 and S2, without any murmur. Abdominal exam: normal bowel sounds, soft belly, nontender, without guarding or rebound. Reducible umbilical hernia. Otherwise, no mass. No organomegaly. No fluid shift. No pulsatile mass. Digital rectal exam: done by ER 07/02/17: bright red blood with clots, without stool. Obviously, OB-positive. Extremities: without C, C, or E. No palpable cords. No rash. No acute arthropathy. No palmar erythema. No Dupuytren's contractures. Distal pulses 2+ bilaterally. DTRs 2+ bilaterally. Alert and oriented x 3. Motor 5/5 B/L. No tremor. No asterixis. Current Medications: Current Medications Sig/Malvin Start time Last Medication Dose Route Stop Time Status Admin Ciprofloxacin 400 MG Q12 07/03 0900 AC 07/03 Dextrose/Water 200 ML IV 0952 Ciprofloxacin 400 MG Q12 07/02 2100 DC Dextrose/Water 200 ML IV Ciprofloxacin 0 .STK-MED ONE 07/02 1556 DC PO Ciprofloxacin 500 MG ONCE ONE 07/02 1545 DC 07/02 PO 07/02 1546 1600 Metronidazole 500 MG IQ8 07/03 0000 AC 07/03 N/A 1 UNIT IV 0741 Metronidazole 500 MG IQ8 07/02 1930 DC N/A 1 UNIT IV Metronidazole 0 .STK-MED ONE 07/02 1556 DC PO Metronidazole 500 MG ONCE ONE 07/02 1545 DC 07/02 PO 07/02 1546 1601 Ondansetron HCl 4 MG ONCE ONE 07/02 2145 DC 07/02 IV 07/02 2146 2149 Pantoprazole Sodium 40 MG DAILY 07/03 0900 AC 07/03 IV 0952 Pantoprazole Sodium 40 MG ONCE ONE 07/02 2145 DC 07/02 IV 07/02 214 2155 Polyethylene Glycol 1 GAL ONCE ONE 07/02 213 DC 07/02 PO 07/02 213 2328 Pravastatin Sodium 40 MG 1700 07/03 1700 AC PO Sodium Chloride 1,000 ML Q10H 07/02 2345 AC 07/03 IV 0952 Sodium Chloride 1,000 ML BOLUS ONE 07/02 2029 DC IV 07/02 2128 Sodium Chloride 1,000 ML BOLUS ONE 07/02 2014 DC 07/02 IV 07/02 Sodium Chloride 1,000 ML BOLUS ONE 07/02 2014 DC IV 07/02 2113 Sodium Chloride 1,000 ML ONCE ONE 07/02 1930 DC 07/02 IV 07/03 0209 1940 Sodium Chloride 1,000 ML BOLUS ONE 07/02 1030 DC 07/02 IV 07/02 1229 1024 Trimethobenzamide HCl 200 MG ONCE ONE 07/025 DC 07/02 IM 07/02 2245 2257 Results Pertinent Lab Results: Laboratory Tests 07/03 07/03 0842 0500 Chemistry Sodium (137 - 145 mmol/L) 142 Potassium (3.5 - 5.1 mmol/L) 4.1 Chloride (98 - 107 mmol/L) 105 Carbon Dioxide (22 - 30 mmol/L) 26 Anion Gap (5 - 16) 12 BUN (9 - 20 mg/dL) 10 Creatinine (0.7 - 1.2 mg/dL) 0.8 Estimated GFR (>60 ml/min) > 60 Glucose (65 - 99 mg/dL) 112 H Calcium (8.4 - 10.2 mg/dL) 8.0 L Phosphorus (2.5 - 4.5 mg/dL) 3.5 Magnesium (1.6 - 2.3 mg/dL) 1.9 Total Bilirubin (0.2 - 1.3 mg/dL) 0.7 Direct Bilirubin (< 0.4 mg/dL) 0 AST (17 - 59 U/L) 82 H ALT (21 - 72 U/L) 106 H Alkaline Phosphatase (< 127 U/L) 37 C-React Prot High Sens (1.0 - 3.0 mg/L) 5.3 H Total Protein (6.3 - 8.2 g/dL) 5.9 L Albumin (3.5 - 5.0 g/dL) 3.4 L Hematology CBC w Diff NO MAN DIFF REQ WBC (4.8 - 10.8 /CUMM) 8.6 RBC (4.70 - 6.10 /CUMM) 3.75 L Hgb (14.0 - 18.0 G/DL) 10.5 L Hct (42 - 52 %) 31.7 L MCV (80.0 - 94.0 FL) 84.6 MCH (27.0 - 31.0 PG) 27.9 MCHC (33.0 - 37.0 G/DL) 33.0 RDW (11.5 - 14.5 %) 13.1 Plt Count (130 - 400 /CUMM) 333 MPV (7.4 - 10.4 FL) 7.2 L Gran % (42.2 - 75.2 %) 77.5 H Lymphocytes % (20.5 - 51.1 %) 12.9 L Monocytes % (1.7 - 9.3 %) 8.3 Eosinophils % (0 - 5 %) 0.9 Basophils % (0.0 - 2.0 %) 0.4 Absolute Granulocytes (1.4 - 6.5 /CUMM) 6.7 H Absolute Lymphocytes (1.2 - 3.4 /CUMM) 1.1 L Absolute Monocytes (0.10 - 0.60 /CUMM) 0.7 H Absolute Eosinophils (0.0 - 0.7 /CUMM) 0.1 Absolute Basophils (0.0 - 0.2 /CUMM) 0 ESR Westergren (0 - 10 MM) 12 H Serology Hepatitis A IgM Ab Cancelled Hep Bs Antigen Cancelled Hep B Core IgM Ab Conf Cancelled Hepatitis C Antibody Cancelled 07/03 07/02 0015 2130 Chemistry Sodium (137 - 145 mmol/L) 139 Potassium (3.5 - 5.1 mmol/L) 4.4 Chloride (98 - 107 mmol/L) 105 Carbon Dioxide (22 - 30 mmol/L) 25 Anion Gap (5 - 16) 9 BUN (9 - 20 mg/dL) 12 Creatinine (0.7 - 1.2 mg/dL) 0.8 Estimated GFR (>60 ml/min) > 60 Glucose (65 - 99 mg/dL) 114 H Calcium (8.4 - 10.2 mg/dL) 8.0 L Phosphorus (2.5 - 4.5 mg/dL) 3.4 Magnesium (1.6 - 2.3 mg/dL) 1.9 Total Bilirubin (0.2 - 1.3 mg/dL) 0.7 AST (17 - 59 U/L) 86 H ALT (21 - 72 U/L) 111 H Albumin (3.5 - 5.0 g/dL) 3.4 L Hematology CBC w Diff NO MAN DIFF REQ Cancelled WBC (4.8 - 10.8 /CUMM) 11.4 H Cancelled RBC (4.70 - 6.10 /CUMM) 3.93 L Cancelled Hgb (14.0 - 18.0 G/DL) 11.3 L Cancelled Hct (42 - 52 %) 33.1 L Cancelled MCV (80.0 - 94.0 FL) 84.2 Cancelled MCH (27.0 - 31.0 PG) 28.7 Cancelled MCHC (33.0 - 37.0 G/DL) 34.1 Cancelled RDW (11.5 - 14.5 %) 13.2 Cancelled Plt Count (130 - 400 /CUMM) 349 Cancelled MPV (7.4 - 10.4 FL) 7.6 Cancelled Gran % (42.2 - 75.2 %) 86.2 H Lymphocytes % (20.5 - 51.1 %) 8.2 L Monocytes % (1.7 - 9.3 %) 4.7 Eosinophils % (0 - 5 %) 0.5 Basophils % (0.0 - 2.0 %) 0.4 Absolute Granulocytes (1.4 - 6.5 /CUMM) 9.9 H Absolute Lymphocytes (1.2 - 3.4 /CUMM) 0.9 L Absolute Monocytes (0.10 - 0.60 /CUMM) 0.5 Absolute Eosinophils (0.0 - 0.7 /CUMM) 0.1 Absolute Basophils (0.0 - 0.2 /CUMM) 0 Serology Hepatitis A IgM Ab (NONREACTIVE) NONREACTIVE Hep Bs Antigen (NONREACTIVE) NONREACTIVE Hep B Core IgM Ab Conf (NONREACTIVE) NONREACTIVE Hepatitis C Antibody (NONREACTIVE) NONREACTIVE 07/02 1720 Chemistry Sodium (137 - 145 mmol/L) 141 141 Potassium (3.5 - 5.1 mmol/L) 3.7 4.0 Chloride (98 - 107 mmol/L) 107 104 Carbon Dioxide (22 - 30 mmol/L) 24 27 Anion Gap (5 - 16) 10 11 BUN (9 - 20 mg/dL) 15 14 Creatinine (0.7 - 1.2 mg/dL) 0.8 0.8 Estimated GFR (>60 ml/min) > 60 > 60 BUN/Creatinine Ratio (7 - 25 %) 18.8 17.5 Glucose (65 - 99 mg/dL) 93 Calcium (8.4 - 10.2 mg/dL) 8.8 Troponin I (<0.11 ng/ml) < 0.01 Hematology CBC w Diff NO MAN DIFF REQ NO MAN DIFF REQ WBC (4.8 - 10.8 /CUMM) 14.0 H 7.9 RBC (4.70 - 6.10 /CUMM) 4.14 L 4.76 Hgb (14.0 - 18.0 G/DL) 11.6 L 13.3 L Hct (42 - 52 %) 35.0 L 40.6 L MCV (80.0 - 94.0 FL) 84.5 85.4 MCH (27.0 - 31.0 PG) 28.1 28.0 MCHC (33.0 - 37.0 G/DL) 33.2 32.8 L RDW (11.5 - 14.5 %) 13.3 13.5 Plt Count (130 - 400 /CUMM) 367 350 MPV (7.4 - 10.4 FL) 7.3 L 7.4 Gran % (42.2 - 75.2 %) 66.6 67.1 Lymphocytes % (20.5 - 51.1 %) 21.1 19.3 L Monocytes % (1.7 - 9.3 %) 10.0 H 10.2 H Eosinophils % (0 - 5 %) 1.8 2.6 Basophils % (0.0 - 2.0 %) 0.5 0.8 Absolute Granulocytes (1.4 - 6.5 /CUMM) 9.3 H 5.3 Absolute Lymphocytes (1.2 - 3.4 /CUMM) 3.0 1.5 Absolute Monocytes (0.10 - 0.60 /CUMM) 1.4 H 0.8 H Absolute Eosinophils (0.0 - 0.7 /CUMM) 0.2 0.2 Absolute Basophils (0.0 - 0.2 /CUMM) 0.1 0.1 Miscellaneous Ref Lab Test Result Pending 07/02 07/02 1125 1024 Chemistry Sodium (137 - 145 mmol/L) 141 Potassium (3.5 - 5.1 mmol/L) 4.3 Chloride (98 - 107 mmol/L) 103 Carbon Dioxide (22 - 30 mmol/L) 26 Anion Gap (5 - 16) 12 BUN (9 - 20 mg/dL) 18 Creatinine (0.7 - 1.2 mg/dL) 0.8 Estimated GFR (>60 ml/min) > 60 BUN/Creatinine Ratio (7 - 25 %) 22.5 Glucose (65 - 99 mg/dL) 103 H Lactic Acid (0.7 - 2.1 mmol/L) 1.0 Calcium (8.4 - 10.2 mg/dL) 9.1 Iron (49 - 181 ug/dL) 58 TIBC (261 - 462 ug/dL) 336 Ferritin (17.9 - 464 ng/mL) 325.0 Total Bilirubin (0.2 - 1.3 mg/dL) 0.6 AST (17 - 59 U/L) 106 H ALT (21 - 72 U/L) 117 H Alkaline Phosphatase (< 127 U/L) 46 Total Protein (6.3 - 8.2 g/dL) 7.1 Albumin (3.5 - 5.0 g/dL) 4.3 Globulin (1.9 - 4.2 gm/dL) 2.8 Albumin/Globulin Ratio (1.1 - 2.2 %) 1.5 Coagulation PT (9.4 - 12.5 SEC) 14.4 H INR (0.90 - 1.17) 1.32 H APTT (25 - 37 SEC) 31 Hematology CBC w Diff NO MAN DIFF REQ WBC (4.8 - 10.8 /CUMM) 6.8 RBC (4.70 - 6.10 /CUMM) 5.02 Hgb (14.0 - 18.0 G/DL) 13.2 L Hct (42 - 52 %) 42.5 MCV (80.0 - 94.0 FL) 84.8 MCH (27.0 - 31.0 PG) 26.3 L MCHC (33.0 - 37.0 G/DL) 31.1 L RDW (11.5 - 14.5 %) 13.1 Plt Count (130 - 400 /CUMM) 356 MPV (7.4 - 10.4 FL) 7.6 Gran % (42.2 - 75.2 %) 71.0 Lymphocytes % (20.5 - 51.1 %) 16.6 L Monocytes % (1.7 - 9.3 %) 9.9 H Eosinophils % (0 - 5 %) 2.2 Basophils % (0.0 - 2.0 %) 0.3 Absolute Granulocytes (1.4 - 6.5 /CUMM) 4.8 Absolute Lymphocytes (1.2 - 3.4 /CUMM) 1.1 L Absolute Monocytes (0.10 - 0.60 /CUMM) 0.7 H Absolute Eosinophils (0.0 - 0.7 /CUMM) 0.2 Absolute Basophils (0.0 - 0.2 /CUMM) 0 Immunology ROSELYN Titer Pending Anti-Nuclear Antibody Pending Urines Urine Color (YEL,AMB,STR) YEL Urine Clarity (CLEAR) CLEAR Urine pH (5.0 - 8.0) 6.5 Ur Specific Warren (1.001 - 1.035) 1.020 Urine Protein (NEG,<30 MG/DL) NEG Urine Ketones (NEG) NEG Urine Nitrite (NEG) NEG Urine Bilirubin (NEG) NEG Urine Urobilinogen (0.1 - 1.0 EU/dl) 0.2 Ur Leukocyte Esterase (NEG) NEG Ur Microscopic SEDIMENT EXAMINED Urine RBC (0 - 5 /HPF) RARE Urine Hemoglobin (NEG) TRACE-LYSED H Urine Glucose (N MG/DL) NEG Imaging/Other Studies: 06/28/17: EKG- NSR @ 63, LAE, w/o acute abnormality. 06/28/17: CT ABD & PELVIS W IV CONTRAST- IMPRESSION: 1. The imaging findings are compatible with diagnosis of acute appendicitis. 2. A 2.4 x 2.2 cm lesion at the upper pole the right kidney with attenuation of 60 Hounsfield units could represent a hyperdense cyst rather than a solid mass. Recommend follow-up with renal ultrasound. 3. Small fat-containing midline abdominal wall hernia. Post LIH repair. 4. Scattered hepatic cysts, max 1.5 cm, nl GB, no dilated ducts. 5. Mild sigmoid diverticulosis coli w/o diverticulitis. 6. ASHD of abdominal aorta & iliac arteries, w/o aneurysm. 7. L2-L3 DJD. The acute/critical test result was discussed with Dr. Bernal at 3:12 pm on 06/28/2017 and it was ascertained that the content and the importance of the findings was understood at the time of the direct communication. DICTATED BY: José Miguel Wilkerson MD DATE/TIME DICTATED:06/28/17 / 1458 *Addendum: This patient has a history of Crohn disease. It should be noted that the fat stranding in the right lower quadrant is primarily located around the collapsed cecum and base of the appendix. The appendiceal wall is abnormally thickened at its junction with the cecum, but this could be reactive to cecal inflammation from Crohn disease. The appendiceal lumen contains some gas and fluid, and the appendix tapers in diameter as it approaches its tip. There is mild circumferential wall thickening of the terminal ileum, but no overt edema in the bowel wall or fat stranding around the ileum. *The inflammatory changes in the right lower quadrant could reflect a flare of patient's inflammatory bowel disease in the cecum rather than acute appendicitis. Addendum Signed by: José Miguel Wilkerson MD 06/28/17 1857 07/02/17:*EKG- pending. 07/02/17: *CT ABD & PELVIS ANGIOGRAM-
--- NOTE | 2017-07-03 12:31 | Proc Note Gastroenterology ---
Gastroenterology Procedure Date of Last Colonoscopy: 05/11/07 Procedure Date: 07/03/17 GI Procedure(s): Combined follow-up colonoscopy to the terminal ileum, plus follow-up upper endoscopy to the jeunum (120 cm from the incisors), with the pediatric colonoscope from above Press Setter: LEN GUERRA MD ASA Classification: III (III-E) Indications: INDX: (*Please refer to my dictated GI consult of 07/02/17). 61 y/o male, history of Crohn's disease (off meds x years, since dx in , reportedly ileal & ICV), admitted to the ICU 07/02/17 with GI bleed. 07/02/17: CTA AP- no active extravasation, site of bleeding not identified. Clinically, with probable diverticular bleed > angiodysplasia; doubt transmural Crohn's eroding into a vessel. There is no FHx colon Ca. A 1st cousin has Crohn's. The patient had recently been hospitalized at [facility] 06/28/17-06/30/17 with a probable mild flare of Crohn's > AP, & was rxd Cipro/Flagyl. Meds Received: O2- 4L nc & MAC as per Chuy Salvador, of [facility] anesthesia. Patient's Tolerance: good Complications: None Extent Reached: TI/jejunum (120 cm from the incisors, with the pediatric colonoscope from above) . Procedure: Combined follow-up colonoscopy to the terminal ileum, plus follow-up upper endoscopy to the jeunum (120 cm from the incisors), with the *pediatric colonoscope from above, were performed with the Olympus high-definition videoscopes from above and below, after obtaining informed consent from the patient for each procedure prior to IV sedation, with the inclusion teacher and pulse oximeter, after 1 gallon of GoLYTELY, with the assistance of the GI nurses , Angelica & Rosa, & with Dr. Vera, of [facility]. *Documenting photographs were obtained from above and below, and placed inside the patient's chart. *The patient and his were made aware preoperatively that the purpose of the endoscopic procedures were to help determine the etiology of the bleeding, not for surveillance purposes regarding his Crohn's disease. Initially, follow-up colonoscopy to the terminal ileum was performed with the Olympus high-definition videocolonoscope, after obtaining informed consent from the patient, with the inclusion teacher and pulse oximeter, after 1 gallon of GoLNICOLELY, with the assistance of Dr. Vera, of [facility]. The prep was very good. The patient was in the left lateral decubitus position throughout the procedure. Direct views of the rectum failed to reveal any external hemorrhoids, fissures, or perianal disease. Digital rectal exam was unremarkable, without any masses. Sphincter tone was normal. Retroflexion in the rectum failed to reveal any significant internal hemorrhoids, gross proctitis, rectal ulcers, or rectal lesions. The colonic mucosa was carefully inspected, both upon insertion and upon withdrawal of the colonoscope. Withdrawal time was certainly adequate. There were fairly extensive left-sided diverticula, in the sigmoid colon and left colon. There were no strictures. I did not appreciate any proximal diverticula. The cecum, base of the appendix, and ileocecal valve were all identified. The last 2 cm the terminal ileum were entered, revealing mild inflammation. The ileocecal valve was inflamed, erythematous, and had several erosions, without any deep ulcerations. The base of the appendix was adjacent to the ileocecal valve, and was slightly distorted, without any lesions. Confirmatory photographs were obtained. Biopsies were deferred at present, so as not to confuse the picture of the GI bleeding. Aside from the inflamed, erythematous ileocecal valve containing erosions, & the mildly inflamed TI, the colonic mucosa otherwise appeared intact and within normal limits to the terminal ileum, without any polyps, lesions, additional colitis, or angiodysplasias. Despite the fact that the patient clinically had a probable diverticular bleed, no active bleeding was seen. Some bilious liquid was washed and suctioned clear from the colon. No fresh or old blood was seen. No active lower GI bleeding was seen. The patient tolerated the procedure well. *Although the patient most likely had a resolved diverticular bleed clinically, after completing the preliminary follow-up colonoscopy to the terminal ileum, a decision was made to proceed with a follow-up upper endoscopy to the jejunum, with the pediatric colonoscope from above. Follow-up upper endoscopy to the jejunum (120 cm from the incisors), was performed with the Olympus high definition *pediatric videocolonoscope from above, after obtaining informed consent from the patient, with the inclusion teacher and pulse oximeter, with the assistance of Dr. Vera, of [facility]. A mouthpiece was placed in the usual fashion to protect the patient's teeth. As the patient had already been set up for the colonoscopy, the patient was placed in the supine position and sedated by [facility]. At this point, the endoscope was advanced from the mouth into the esophagus, using direct visualization technique. I did not inspect the vocal cords. The esophageal mucosa appeared normal. There were no esophageal rings, webs, lesions, strictures, or ulcers. There was no monilia or vesicles. There was no esophageal ribbing. The Z line was well demarcated at 40 cm. There was a 3 cm sliding hiatal hernia pouch, from 40-43 cm. There were no Mamadou erosions. No significant esophageal inflammation was seen. There were no ectopic islands, nor gross Saez's esophagus. There were no esophageal or gastric varices, nor any Alva Walker tear. The mccarthy of the stomach distended normally with air insufflation. Direct and retroflexed views of the stomach were performed. There was nothing endoscopically to suggest gastroparesis or portal gastropathy. Aside from a few incidental, diminuitive, sessile proximal gastric polyps (max diameter 4 mm, probably from PPI), in the fundus, posterior wall of the body, & lesser curvature (left intact), the mucosa of the gastric cardia, fundus, lesser curvature, incisura, body, and antrum otherwise appeared normal, without any gastric ulcers or large gastric lesions. The proximal gastric mucosa was not atrophic-appearing. The pylorus was patent, without any gastric outlet obstruction or channel ulcer. The duodenal bulb and duodenal sweep appeared normal, without any duodenal ulcers, distal ulcerations, or angiodysplasias. I was not able to see the ampulla with the direct-viweing scope. The pediatric colonoscope was then advanced from the upper duodenum down to the jejunum, 120 cm from the incisors. The small bowel mucosa looked normal to this point. The folds of the small bowel were normal in caliber to this point, without any flattening, nodularity, scalloping, or mosaic pattern. No active upper GI bleeding was seen, just bile in the small bowel. The patient tolerated both procedures well. Impression: 1. Extensive left-sided diverticula. (*s/p presumed resolved diverticular bleed ). 2. Inflamed, erythematous ICV with superficial erosions (bxs deferred). 3. Minimal inflammation of the last 2 cm of the terminal ileum (bxs deferred). 4. 3 cm sliding hiatal hernia pouch, 40-43 cm, with Z line at 40 cm. 5. Incidental diminutive sessile proximal gastric polyps (max diameter 4 mm in the fundus, posterior wall, & lesser curvature- left intact, probably related to PPI use). 6. Otherwise, normal EGD to the jejunum, 120 cm from the incisors, with the pediatric colonoscope from above. Recommendations: Advance diet as tolerated. Mobilize patient. Okay to transfer patient to General Medicine. 2 large bore IV. Strict I/O's. O2 prn. Surgical consult. Empiric PPI (hx mild GERD, clinically without rapid transit UGI bleed). Continue to hold baby ASA for now (no hx WI or CVA). No NSAIDS. T&C 2u PRBC. Check CBC Q12h for now. May decrease IVF: NS @ 50 cc/hr (avoid dilutional effect). *Elevated LFTs- AST/ALT noted (r/o pericholangitis associated with IBD, ? statin related, r/o fatty liver, etc). Await 07/02/17: ROSELYN, AMA. *Advise semi-elective RUQ sono. DVT prophylaxis with mechanical ALPS. May continue the full 7-10 day course of po Cipro/Flagyl. If stable, hopeful D/C to home in 1-2 days. *Plans are for outpt PillCam with patency capsule (to restage Crohn's & also for GI bleed, *although the latter was most likely diverticular in nature), with eventual semielective repeat colonoscopy with surveillance biopsies, when the patient is not actively bleeding. The patient's Crohn's disease appeared mild, & clinically he does not appear to need biologic agents. *Consideration for outpatient Pentasa and possibly a short course of Budesonide. The above findings and recommendations were again discussed with the patient and his , Karine Robison RN. I also spoke with the [facility] medical housestaff. Further GI recommendations to follow, depending on clinical course. Follow-up Colonscopy Screening await outpt PillCam, to be f/b surveillance colonoscopy in the near future CC: Kin LYON,Augustine; Cindy LYON,Ron Rowe; Gabe LYON,Popeye Bajwa; Maicol LYON ,Jorge A Hicks
[2017-07-03 16:00] VITALS: BP 136/70
--- NOTE | 2017-07-03 16:47 | Cons- General Surgery ---
General Information and HPI Consulting Request Date of Consult: 07/03/17 Requested By: Augustine Sanderson MD History of Present Illness: CC rectal bleeding HPI: Otherwise healthy nonsmoker with the remote history of apparently Crohn's disease and GI bleeding, was just admitted a few days ago here with right lower quadrant pain which we thought was not appendicitis but rather some type of colitis possibly Crohn's given his history. He was discharged on antibiotics without any pain and now has returned with some bloody bowel movements in the ER he fainted he's in the ICU GI has evaluated him and they're planning a colonoscopy. Otherwise he feels well no abdominal pain no more dizziness no nausea. The PFSH and ROS were reviewed and have not changed significantly since the initial H&P done on this system on earlier this week on the seventh, unless stated here, he denies eating anything unusual he's been having normal bowel months up until this point. Allergies/Medications Allergies: Coded Allergies: No Known Allergies (06/28/17) Home Med List: Amlodipine Besylate 5 MG TABLET 1 TAB PO DAILY HEART (Reported) Aspirin (Aspirin*) 81 MG TAB.CHEW 1 TAB PO DAILY HEART HEALTH (Reported) Atenolol 50 MG TABLET 1 TAB PO DAILY HEART (Reported) Ciprofloxacin HCl (Cipro) 500 MG TABLET 1 TAB PO BID ileitis . Lisinopril 20 MG TABLET 1 TAB PO DAILY HEART (Reported) Metronidazole (Flagyl) 500 MG TABLET 1 TAB PO TID ileitis do not take with alcohol Omeprazole 20 MG CAPSULE.DR 1 CAP PO DAILY GI (Reported) Pravastatin Sodium 40 MG TABLET 1 TAB PO QPM CHOLESTEROL (Reported) Past History Medical History Blood Transfusion Hx: Yes (in his 20's at dx of Crohn's) Neurological: NONE EENT: NONE Cardiovascular: AFIB (2010- chem cardiovert-> NSR), hypertension, hyperlipidemia Respiratory: NONE Gastrointestinal: NONE (? 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 FH: brain aneurysm FATHER (OBS). , Age 89; Cause: Fall. FH: HTN (hypertension) 1ST COUSIN (Crohn's disease). Psychosocial History Where Do You Live? Home Who Do You Live With? spouse Services at Home: None Primary Language: Barbadian Smoking Status: Never Smoked ETOH Use: occasional use (rare) Illicit Drug Use: denies illicit drug use Living Will? no Power of Slitter Helper/HCP? yes Name of POA/HCP: pt's , Karine Fisher SHEREE Bolden Other Social History: . 2 dtrs- [employer]. No cigarettes, rare EtOH, no drugs. 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 Functional Ability ADLs Independent: dressing, eating, toileting, bathing. Ambulation: independent IADLs Independent: shopping, housework, finances, food prep, telephone, transportation , medication admin. 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 [employer] Review of Systems Review of Systems: As above Exam & Diagnostic Data Vital Signs and I&O I reviewed Vital Signs Date Time Temp Pulse Resp B/P B/P Pulse O2 O2 Flow FiO2 Mean Ox Delivery Rate 07/03 0800 98 Room Air 07/03 0800 97.7 78 20 146/72 98 Room Air 07/03 0400 96 Room Air 07/03 0000 97.7 90 18 130/80 97 Room Air 07/03 0000 97 Room Air 07/027 96 Room Air 07/02 2102 98.6 82 18 161/76 99 Room Air 07/02 2021 81 18 144/74 97 Room Air 07/02 2017 82 18 140/71 97 Room Air 07/02 1923 98.4 94 18 177/91 97 Room Air 07/02 1837 87 171/82 07/02 1700 98.7 72 20 160/77 96 Room Air I reviewed Intake & Output 07/03 1600 07/03 0800 07/03 0000 07/02 1600 07/02 0800 07/02 0000 Intake Total 1450 4653 1300 Output Total 575 3650 375 Balance 875 1003 925 Intake, IV 0522 256 5258 Intake, Oral 450 4000 Output, Stool 3050 Output, Urine 575 600 375 Patient 167 lb 175 lb Weight Weight Bed scale Reported by Patient Measurement Method Last 24 Hours of Labs: I reviewed Laboratory Tests 07/03 07/03 0842 0500 Chemistry Sodium (137 - 145 mmol/L) 142 Potassium (3.5 - 5.1 mmol/L) 4.1 Chloride (98 - 107 mmol/L) 105 Carbon Dioxide (22 - 30 mmol/L) 26 Anion Gap (5 - 16) 12 BUN (9 - 20 mg/dL) 10 Creatinine (0.7 - 1.2 mg/dL) 0.8 Estimated GFR (>60 ml/min) > 60 Glucose (65 - 99 mg/dL) 112 H Calcium (8.4 - 10.2 mg/dL) 8.0 L Phosphorus (2.5 - 4.5 mg/dL) 3.5 Magnesium (1.6 - 2.3 mg/dL) 1.9 Total Bilirubin (0.2 - 1.3 mg/dL) 0.7 Direct Bilirubin (< 0.4 mg/dL) 0 AST (17 - 59 U/L) 82 H ALT (21 - 72 U/L) 106 H Alkaline Phosphatase (< 127 U/L) 37 C-React Prot High Sens (1.0 - 3.0 mg/L) 5.3 H Total Protein (6.3 - 8.2 g/dL) 5.9 L Albumin (3.5 - 5.0 g/dL) 3.4 L Hematology CBC w Diff NO MAN DIFF REQ WBC (4.8 - 10.8 /CUMM) 8.6 RBC (4.70 - 6.10 /CUMM) 3.75 L Hgb (14.0 - 18.0 G/DL) 10.5 L Hct (42 - 52 %) 31.7 L MCV (80.0 - 94.0 FL) 84.6 MCH (27.0 - 31.0 PG) 27.9 MCHC (33.0 - 37.0 G/DL) 33.0 RDW (11.5 - 14.5 %) 13.1 Plt Count (130 - 400 /CUMM) 333 MPV (7.4 - 10.4 FL) 7.2 L Gran % (42.2 - 75.2 %) 77.5 H Lymphocytes % (20.5 - 51.1 %) 12.9 L Monocytes % (1.7 - 9.3 %) 8.3 Eosinophils % (0 - 5 %) 0.9 Basophils % (0.0 - 2.0 %) 0.4 Absolute Granulocytes (1.4 - 6.5 /CUMM) 6.7 H Absolute Lymphocytes (1.2 - 3.4 /CUMM) 1.1 L Absolute Monocytes (0.10 - 0.60 /CUMM) 0.7 H Absolute Eosinophils (0.0 - 0.7 /CUMM) 0.1 Absolute Basophils (0.0 - 0.2 /CUMM) 0 ESR Westergren (0 - 10 MM) 12 H Serology Hepatitis A IgM Ab Cancelled Hep Bs Antigen Cancelled Hep B Core IgM Ab Conf Cancelled Hepatitis C Antibody Cancelled 07/03 07/02 0015 2130 Chemistry Sodium (137 - 145 mmol/L) 139 Potassium (3.5 - 5.1 mmol/L) 4.4 Chloride (98 - 107 mmol/L) 105 Carbon Dioxide (22 - 30 mmol/L) 25 Anion Gap (5 - 16) 9 BUN (9 - 20 mg/dL) 12 Creatinine (0.7 - 1.2 mg/dL) 0.8 Estimated GFR (>60 ml/min) > 60 Glucose (65 - 99 mg/dL) 114 H Calcium (8.4 - 10.2 mg/dL) 8.0 L Phosphorus (2.5 - 4.5 mg/dL) 3.4 Magnesium (1.6 - 2.3 mg/dL) 1.9 Total Bilirubin (0.2 - 1.3 mg/dL) 0.7 AST (17 - 59 U/L) 86 H ALT (21 - 72 U/L) 111 H Albumin (3.5 - 5.0 g/dL) 3.4 L Hematology CBC w Diff NO MAN DIFF REQ Cancelled WBC (4.8 - 10.8 /CUMM) 11.4 H Cancelled RBC (4.70 - 6.10 /CUMM) 3.93 L Cancelled Hgb (14.0 - 18.0 G/DL) 11.3 L Cancelled Hct (42 - 52 %) 33.1 L Cancelled MCV (80.0 - 94.0 FL) 84.2 Cancelled MCH (27.0 - 31.0 PG) 28.7 Cancelled MCHC (33.0 - 37.0 G/DL) 34.1 Cancelled RDW (11.5 - 14.5 %) 13.2 Cancelled Plt Count (130 - 400 /CUMM) 349 Cancelled MPV (7.4 - 10.4 FL) 7.6 Cancelled Gran % (42.2 - 75.2 %) 86.2 H Lymphocytes % (20.5 - 51.1 %) 8.2 L Monocytes % (1.7 - 9.3 %) 4.7 Eosinophils % (0 - 5 %) 0.5 Basophils % (0.0 - 2.0 %) 0.4 Absolute Granulocytes (1.4 - 6.5 /CUMM) 9.9 H Absolute Lymphocytes (1.2 - 3.4 /CUMM) 0.9 L Absolute Monocytes (0.10 - 0.60 /CUMM) 0.5 Absolute Eosinophils (0.0 - 0.7 /CUMM) 0.1 Absolute Basophils (0.0 - 0.2 /CUMM) 0 Serology Hepatitis A IgM Ab (NONREACTIVE) NONREACTIVE Hep Bs Antigen (NONREACTIVE) NONREACTIVE Hep B Core IgM Ab Conf (NONREACTIVE) NONREACTIVE Hepatitis C Antibody (NONREACTIVE) NONREACTIVE 07/02 1720 Chemistry Sodium (137 - 145 mmol/L) 141 141 Potassium (3.5 - 5.1 mmol/L) 3.7 4.0 Chloride (98 - 107 mmol/L) 107 104 Carbon Dioxide (22 - 30 mmol/L) 24 27 Anion Gap (5 - 16) 10 11 BUN (9 - 20 mg/dL) 15 14 Creatinine (0.7 - 1.2 mg/dL) 0.8 0.8 Estimated GFR (>60 ml/min) > 60 > 60 BUN/Creatinine Ratio (7 - 25 %) 18.8 17.5 Glucose (65 - 99 mg/dL) 93 Calcium (8.4 - 10.2 mg/dL) 8.8 Troponin I (<0.11 ng/ml) < 0.01 Hematology CBC w Diff NO MAN DIFF REQ NO MAN DIFF REQ WBC (4.8 - 10.8 /CUMM) 14.0 H 7.9 RBC (4.70 - 6.10 /CUMM) 4.14 L 4.76 Hgb (14.0 - 18.0 G/DL) 11.6 L 13.3 L Hct (42 - 52 %) 35.0 L 40.6 L MCV (80.0 - 94.0 FL) 84.5 85.4 MCH (27.0 - 31.0 PG) 28.1 28.0 MCHC (33.0 - 37.0 G/DL) 33.2 32.8 L RDW (11.5 - 14.5 %) 13.3 13.5 Plt Count (130 - 400 /CUMM) 367 350 MPV (7.4 - 10.4 FL) 7.3 L 7.4 Gran % (42.2 - 75.2 %) 66.6 67.1 Lymphocytes % (20.5 - 51.1 %) 21.1 19.3 L Monocytes % (1.7 - 9.3 %) 10.0 H 10.2 H Eosinophils % (0 - 5 %) 1.8 2.6 Basophils % (0.0 - 2.0 %) 0.5 0.8 Absolute Granulocytes (1.4 - 6.5 /CUMM) 9.3 H 5.3 Absolute Lymphocytes (1.2 - 3.4 /CUMM) 3.0 1.5 Absolute Monocytes (0.10 - 0.60 /CUMM) 1.4 H 0.8 H Absolute Eosinophils (0.0 - 0.7 /CUMM) 0.2 0.2 Absolute Basophils (0.0 - 0.2 /CUMM) 0.1 0.1 Miscellaneous Ref Lab Test Result Pending Assessment/Plan Assessment/Plan Studies I reviewed the CT angiogram done today on PACS myself postinflammatory changes at the cecum and appendix from last week have improved there is no fluid collection here. Impression is although spaced decades apart patient has a recurrent GI bleed with a vasovagal episode. He appears chronically anemic and the initial drop is not that significant so far. Will see what the scope shows but this ileocecal inflammation must be related. At this point management is medical. Consult Acknowledgment - Thank you for your consult request.
[2017-07-03 17:08] LABS: ABSOLUTE BASOPHIL COUNT 0 /CUMM (0.0-0.2); ABSOLUTE EOSINOPHIL COUNT 0.1 /CUMM (0.0-0.7); ABSOLUTE GRANULOCYTE CT 6.4 /CUMM (1.4-6.5); ABSOLUTE LYMPH COUNT 1.5 /CUMM (1.2-3.4); ABSOLUTE MONOCYTE COUNT 1.1 /CUMM (0.10-0.60); BASOPHIL % 0.5 % (0.0-2.0); EOSINOPHIL % 1.6 % (0-5); GRANULOCYTE % 69.8 % (42.2-75.2); HEMATOCRIT 27.6 % (42-52); MEAN CORPUSCULAR HGB 28.8 PG (27.0-31.0); MEAN CORPUSCULAR HGB CONC 34.1 G/DL (33.0-37.0); MEAN CORPUSCULAR VOLUME 84.3 FL (80.0-94.0); MEAN PLATELET VOLUME 7.4 FL (7.4-10.4); PLATELET COUNT 336 /CUMM (130-400); RBC DISTRIBUTION WIDTH 13.2 % (11.5-14.5); RED BLOOD CELL CT 3.28 /CUMM (4.70-6.10); WHITE BLOOD CELL COUNT 9.2 /CUMM (4.8-10.8)
[2017-07-03 23:40] VITALS: BP 124/68
[2017-07-04 06:02] LABS: ABSOLUTE BASOPHIL COUNT 0 /CUMM (0.0-0.2); ABSOLUTE EOSINOPHIL COUNT 0.3 /CUMM (0.0-0.7); ABSOLUTE GRANULOCYTE CT 4.3 /CUMM (1.4-6.5); ABSOLUTE LYMPH COUNT 1.7 /CUMM (1.2-3.4); ABSOLUTE MONOCYTE COUNT 0.7 /CUMM (0.10-0.60); BASOPHIL % 0.5 % (0.0-2.0); EOSINOPHIL % 4.4 % (0-5); GRANULOCYTE % 61.1 % (42.2-75.2); HEMATOCRIT 28.5 % (42-52); MEAN CORPUSCULAR HGB 28.3 PG (27.0-31.0); MEAN CORPUSCULAR VOLUME 85.9 FL (80.0-94.0); MEAN PLATELET VOLUME 7.5 FL (7.4-10.4); PLATELET COUNT 289 /CUMM (130-400); RBC DISTRIBUTION WIDTH 13.6 % (11.5-14.5); RED BLOOD CELL CT 3.32 /CUMM (4.70-6.10)
--- NOTE | 2017-07-04 07:46 | PN- Att Addend ---
Attending Addendum Attending Brief Note Patient seen and examined. Resting comfortably and not in any acute distress. No issues overnight. Endoscopy reports noted. Patient denies nausea vomiting. Patient denies abdominal pain. No bright red blood per rectum. Blood Pressure been stable. Vital Signs Date Time Temp Pulse Resp B/P B/P Pulse O2 O2 Flow FiO2 Mean Ox Delivery Rate 07/03 2340 98.1 72 14 124/68 99 Room Air 07/03 1600 98.2 90 18 136/70 97 Room Air 07/03 0800 98 Room Air 07/03 0800 97.7 78 20 146/72 98 Room Air Gen. appearance: Not in any acute distress. Heart: S1-S2 regular Lungs: Clear bilaterally Abdomen: Soft and nontender with normal bowel sounds. Extremities: No pedal edema Laboratory Tests 07/04/17 0510: Anion Gap 8, Estimated GFR > 60, BUN/Creatinine Ratio 12.5, CBC w Diff NO MAN DIFF REQ, RBC 3.32 L, MCV 85.9, MCH 28.3, MCHC 33.0, RDW 13.6, MPV 7.5, Gran % 61.1, Lymphocytes % 24.5, Monocytes % 9.5 H, Eosinophils % 4.4, Basophils % 0.5 , Absolute Granulocytes 4.3, Absolute Lymphocytes 1.7, Absolute Monocytes 0.7 H , Absolute Eosinophils 0.3, Absolute Basophils 0 07/03/17 1652: CBC w Diff NO MAN DIFF REQ, RBC 3.28 L, MCV 84.3, MCH 28.8, MCHC 34.1, RDW 13.2 , MPV 7.4, Gran % 69.8, Lymphocytes % 16.3 L, Monocytes % 11.8 H, Eosinophils % 1.6, Basophils % 0.5, Absolute Granulocytes 6.4, Absolute Lymphocytes 1.5, Absolute Monocytes 1.1 H, Absolute Eosinophils 0.1, Absolute Basophils 0 07/03/17 0842: Hepatitis A IgM Ab Cancelled, Hep Bs Antigen Cancelled, Hep B Core IgM Ab Conf Cancelled, Hepatitis C Antibody Cancelled Problems: 1. Lower gastrointestinal bleeding, from diverticula 2. Acute blood loss anemia 3. History of Crohn's disease 4. History of diverticula in the colon 5. Transaminitis Plan: -Hemoglobin level is stable this morning. No active bleeding noted on endoscopy. Patient may be discharged home once cleared by the gastroenterology service. -Follow-up with the gastroenterology service regarding when his aspirin may be resumed. He has history of atrial fibrillation multiple anticoagulation. C urrently remains in normal sinus rhythm. -He was started on antibiotic therapy during his last admission for colitis. Complete the previously ordered course. -Resume atenolol this morning. If blood pressure remained stable amlodipine and lisinopril be resumed in the outpatient. -Transaminitis is trending down. Viral hepatitis serologies negative. Follow- up with the GI service regarding need for further workup.
[2017-07-04 08:00] VITALS: BP 140/72
--- NOTE | 2017-07-04 08:16 | PN- Housestaff ---
Subjective Follow-up For: Probable diverticular bleed HTN HLD Subjective: No overnight issues. Had a normal bowel movement. Reports feeling much better, no complaints. Informed all the discharge follow up at bedside. Review of Systems Constitutional: Reports: see HPI. Objective Last 24 Hrs of Vital Signs/I&O Vital Signs Date Time Temp Pulse Resp B/P B/P Pulse O2 O2 Flow FiO2 Mean Ox Delivery Rate 07/03 2340 98.1 72 14 124/68 99 Room Air 07/03 1600 98.2 90 18 136/70 97 Room Air Intake & Output 07/04 1600 07/04 0800 07/04 0000 Intake Total 360 820 Output Total Balance 360 820 Intake, IV 120 220 Intake, Oral 240 600 Physical Exam General Appearance: Alert, Oriented X3, Cooperative, No Acute Distress Skin: No Rashes HEENT: Atraumatic, PERRLA, EOMI Neck: Supple Cardiovascular: Normal S1, Normal S2, No Murmurs Lungs: Clear to Auscultation, Normal Air Movement Abdomen: Normal Bowel Sounds, Soft, No Tenderness Neurological: Normal Gait, Normal Speech, Strength at 5/5 X4 Ext, Normal Tone Extremities: No Clubbing, No Cyanosis, No Edema Vascular: Normal Pulses Current Medications: Current Medications Sig/Malvin Start time Last Medication Dose Route Stop Time Status Admin Ciprofloxacin 400 MG Q12 07/03 0900 DCD 07/03 Dextrose/Water 200 ML IV 2038 Metronidazole 500 MG IQ8 07/03 0000 DCD 07/04 N/A 1 UNIT IV 0734 Pantoprazole Sodium 40 MG DAILY 07/03 0900 DCD 07/03 IV 0952 Pravastatin Sodium 40 MG 1700 07/03 1700 DCD 07/03 PO 1636 Last 24 Hrs of Lab/Mateo Results Last 24 Hrs of Labs/Mics: Laboratory Tests 07/04/17 0510: Anion Gap 8, Estimated GFR > 60, BUN/Creatinine Ratio 12.5, CBC w Diff NO MAN DIFF REQ, RBC 3.32 L, MCV 85.9, MCH 28.3, MCHC 33.0, RDW 13.6, MPV 7.5, Gran % 61.1, Lymphocytes % 24.5, Monocytes % 9.5 H, Eosinophils % 4.4, Basophils % 0.5 , Absolute Granulocytes 4.3, Absolute Lymphocytes 1.7, Absolute Monocytes 0.7 H , Absolute Eosinophils 0.3, Absolute Basophils 0 07/03/17 1652: CBC w Diff NO MAN DIFF REQ, RBC 3.28 L, MCV 84.3, MCH 28.8, MCHC 34.1, RDW 13.2 , MPV 7.4, Gran % 69.8, Lymphocytes % 16.3 L, Monocytes % 11.8 H, Eosinophils % 1.6, Basophils % 0.5, Absolute Granulocytes 6.4, Absolute Lymphocytes 1.5, Absolute Monocytes 1.1 H, Absolute Eosinophils 0.1, Absolute Basophils 0 Assessment/Plan Assessment: Patient is 61-year-old male with past medical history significant for HTN, HLD, paroxysmal A. fib (now in sinus), renal stones, Crohn's disease (40 years ago) in remission presented with bright red blood per rectum. He is completely asymptomatic presentation and had so for 10 bloody bowel movements. This is followed by an episode of syncope (vasovagal) while sitting on a commode. He was recently admitted for atypical presentation of appendicitis with cecal inflammation treated medically and discharged with Cipro and Flagyl for a total of 10 days. Vital signs at presentation temp 95.5, heart rate 73, blood pressure 60/90 mmHg, saturating well on room air. Physical examination did show normal heart sounds, clear lungs, distended abdomen with normal bowel sounds. Labs did show white count 6.8--> 14, H&H 13/42--> 11/35. Normal chem panel with BUN/ creatinine 15/0.8. AST/ALT 106/1 1 7, PT 14.4, INR 1.3. UA is clear. CT abdomen done June 28, 2017 did show cecal inflammation and appendiceal base inflammation concerned about colitis/appendicitis. CT angiogram of abdomen and pelvis performed didnot show any active bleeding. Admitted to ICU and stable to floor Problem list 1. Lower GI bleed probably diverticular in nature 2. Crohn's disease in remission 3. Hypertension 4. Hyperlipidemia Lower gastrointestinal bleed - possibly diverticular/angiodyplasia related Asymptomatic. He had a history of chrons disease in the past but had been in remission since 40yrs ago. Last colonoscopy 2007. No similar episodes in the past. Evidence of bright red blood without any elevation in BUN/cr suggest more of lower GI bleed. Orthostatic positive with an episode of vasovagal syncope indicating intravenous volume depletion. CT angio did not reveal any active bleed, however there are regions of mesenteric stranding. Evidence of Diverticulosis without diverticulitis. Intially placed on 2 large bore IV lines and aggressivlu resuscitated. Intially holded all antihypertensives. Kept NPO with golytely prep. Underwent colonoscopy on 07/03/17 which did not show any evidence of bleeding. Advanced diet slowly and he improved without any further episodes of bleeding. H&H dropped to 9.4/28 and remained stable. He is requested to have an outpatient pill cam study and based on the results colonoscopy at somepoint with biopsy. is on board and patient will follow up after discharge. He is asked to hold aspirin for the next 7-10 days. A follow up CBC in a week. Continued his cipro and flagyl to complete his course for recent ?appendiceal/ cecal inflammation (colitis). Transaminitis AST/ALT - 100's. Probably secondary to statins/low flow state. Please repeat as outpatient. Renal lesion on CT scan A nonenhancing upper pole of the right kidney there is a 2.5 cm hyperdense lesion. He also had h/o renal stones. He was asked to follow up with as outpatient. HTN Holded all the medications while in hospital. Restarted atenolol, lisinopril, Norvasc at discharge as tolerated. HLD Continued pravastatin 40mg daily DVT prophylaxis ALPS - active bleed Code status full code Problem List: 1. Acute appendicitis 2. Right lower quadrant abdominal pain 3. Lower GI bleed 4. Elevated LFTs 5. Diverticula of colon Pain Ratin Pain Location: n/a Pain Goal: Pain 4 or less Pain Plan: tylenol prn Tomorrow's Labs & Rationales: none
--- NOTE | 2017-07-04 10:02 | PN- Gastroenterology ---
Assessment/Plan GI Assessment/Recommendations: 61 y/o male, HTN, HLD, remote afib 2009 (chemically cardioverted to NSR then, after a short course of Coumadin/Lovenox; off A/C tx x years), on baby ASA 81 mg daily (denies HI or CVA), Ca oxalate renal stones, remote umbilical hernia repair & B/L IH repairs, with a remote history of Crohn's disease in his 20s, at which point, he presented with bloody diarrhea & was on a very short course of Prednisone. He was transfused at that time. He had been off medications since then, as his Crohn's disease had been essentially asymptomatic. He had never been on mesalamine, immunomodulators or biologic agents. He was not certain as to the exact location of the Crohn's disease then, but he thinks it might have been the ileum. Aside from a 1st cousin with Crohn's disease, he denied any FHx of additional GI disease, GI Ca, bleeding disorders, or inherited liver disease. 05/11/07: EGD with bx/colonoscopy to TI with bx per Dr. Renetta Cormier (done for screening, remote hx Crohn's, & GERD)- 4 cm sliding HH from 40-44 cm & tiny prepyloric antral nodule- bx: mild CAG, HP- neg, benign. Cecal lipoma, ileitis, & mild sigmoid diverticula. Bxs TI: Focal acute & chronic inflammation with surface erosion, reactive epithelial atypia & fibrinopurulent exudate, most c/w Crohn's disease. No granuloma, dysplasia, or CA. The patient had not seen any GI M.D. since. He took Omeprazole for reflux, which was stable on PPI. The patient was recently admitted to [facility] 06/28/17 - 06/30/17, presenting with RLQ pain starting 06/24/17, for which he took a few Advil. There were no fevers, chills, or jaundice. There was no nausea, vomiting, diarrhea, overt GI bleeding, or melena. The patient saw his PMD for the above, who rx an outpt CT AP with IV contrast on 06/28/17. 06/28/17: CT ABD & PELVIS W IV CONTRAST- IMPRESSION: 1. The imaging findings are compatible with diagnosis of acute appendicitis. 2. A 2.4 x 2.2 cm lesion at the upper pole the right kidney with attenuation of 60 Hounsfield units could represent a hyperdense cyst rather than a solid mass. Recommend follow-up with renal ultrasound. 3. Small fat-containing midline abdominal wall hernia. Post LIH repair. 4. Scattered hepatic cysts, max 1.5 cm, nl GB, no dilated ducts. 5. Mild sigmoid diverticulosis coli w/o diverticulitis. 6. ASHD of abdominal aorta & iliac arteries, w/o aneurysm. 7. L2-L3 DJD. The acute/critical test result was discussed with Dr. Bernal at 3:12 pm on 06/28/2017 and it was ascertained that the content and the importance of the findings was understood at the time of the direct communication. DICTATED BY: José Miguel Wilkerson MD DATE/TIME DICTATED:06/28/17 / 1458 *Addendum: This patient has a history of Crohn disease. It should be noted that the fat stranding in the right lower quadrant is primarily located around the collapsed cecum and base of the appendix. The appendiceal wall is abnormally thickened at its junction with the cecum, but this could be reactive to cecal inflammation from Crohn disease. The appendiceal lumen contains some gas and fluid, and the appendix tapers in diameter as it approaches its tip. There is mild circumferential wall thickening of the terminal ileum, but no overt edema in the bowel wall or fat stranding around the ileum. *The inflammatory changes in the right lower quadrant could reflect a flare of patient's inflammatory bowel disease in the cecum rather than acute appendicitis. Addendum Signed by: José Miguel Wilkerson MD 06/28/17 6846 The patient was sent to the [facility] and was admitted to Dr. Milian's surgical service. He was seen by Dr. Yarbrough in inpatient GI consultation 10/09. At that time, WBC 6.9, H/H 13.1/39.5, PLT 295, CRP 5.5, normal CMP except TBil 1.4. The patient was treated with IV antibiotics, switched to po Cipro 500 mg po BID & Flagyl 500 mg po TID, upon D/C 06/30/17. The thoughts were that he probably had a flare of Crohn's disease (albeit, atypical course over the years), rather than appendicitis. Plans were to eventually have an outpatient colonoscopy. He also had an outpatient appointment with urology to follow up the hyperdense right renal cyst noted on CT. On 07/02/17 at approximately 4 a.m., the patient initially had what was described as "bloody diarrhea", followed by pure bright red blood per rectum 4 times at home. He arrived at the [facility] ER 07/02/17 at 9:27 a.m. Upon arrival, BP 160/90, P 73, R 16, T 95.5, O2 sat RA 98%. He was given IV NS, IV Cipro & IV Flagyl in the ER. His initial vitals and HCT (42.5) were exceptionally stable, and when I was notified by Dr. Morton about the patient at approximately 11:45 AM, I was led to believe that the patient was being discharged to home for outpatient colonoscopy. When called again this evening at 7:30 p.m., when I found out the patient had already been admitted for LGI bleeding, I advised a CTA of the abdomen, which was done just prior to me seeing the patient. CTA results were pending. The patient had approximately 5 more episodes of rectal bleeding in the ER, followed by what appeared to be a vasovagal event at 8:18 PM, while passing blood in the toilet. There was no chest pain or shortness of breath. The bleeding was painless, without any abdominal pain or rectal pain. There was no melena. The patient denied any nausea, vomiting, or hematemesis. He had mild symptoms of GERD which were chronic in nature. He denied any constipation, obstipation, or tenesmus. He had no rashes or acute arthralgias. He denied any significant weight loss or change in appetite. He denied any fevers, chills, or jaundice. He had no symptoms of UTI or URI. I winessed a large amount of dark red blood & clots in the commode, without stool. 07/02/17: 10:24: WBC 6.8, H/H 13.2/42.5, MCV 84.8, RDW 13.1, PLT 356, PT 14.4, INR 1.32, PTT 31, glu 103, BUN/Cr 18/0.8, GFR > 60, na 141, K 4.3, HCO3 26, AG 12, lactate 1.0, ca 9.1, alb 4.3, glob 2.8, TBil 0.6, alk phos 46, *AST 106, * ALT 117 07/02/17: 17:20: WBC 7.9, H/H 13.3/40.6, PLT 350, glu 93, BUN/Cr 14/1.8, GFR > 60, Na 141, K 4.0, HCO3 27, AG 11, Ca 8.8 07/02/17: 20:21: WBC 14, H/H 11.6/35, PLT 367, BUN/Cr 15/0.8, GFR > 60, Na 141. K 3.7, HCO3 24, AG 10, troponin < 0.01 07/02/17: ER: Stool C. diff toxin A & B- negative; *stool C&S/Shiga toxin- all negative. 07/02/17: *EKG- NSR @ 78, nl axis, nl interval, without ischemic change. 07/02/17: *CT ABD & PELVIS ANGIOGRAM- IMPRESSION: 1. *No evidence of extravasation of contrast into the gastrointestinal track. Site of GI bleeding not defined. 2. There is diverticulosis of the colon but no evidence of diverticulitis. No acute change of bowel wall. No bowel obstruction. 3. There are regions of edema and stranding in the mesentery. There is an area in the left lower quadrant around the cecum. This is less pronounced however than the CAT scan of 06/28/2017. There is a second area in the left mid upper abdomen which is more pronounced than the prior CAT scan of 06/28/2017. Both of these areas are associated with shotty subcentimeter lymph nodes but no abscess or free air. The surrounding bowel loops are normal. 4. The appendix is normal 5. Atherosclerotic vascular wall calcifications of aorta 6. There are multiple small hepatic cyst. 7. Hyperdense cyst upper pole of right kidney. This critical result was discussed with Dr. Robles on 07/02/2017, 10:00 PM and it was ascertained that the content and urgency of the report was understood at the time of direct communication. DICTATED BY: Ruben Verdin MD DATE/TIME DICTATED:07/02/172121 *Clinically, on admission 07/02/17, the patient appeared to be having a lower GI bleed. Statistically this would most likely be diverticular vs. angiodysplasia in etiology. Neoplasm usually does not bleed of this magnitude. The remote history of Crohn's disease was noted, off medication since his 's, when he was remotely on a short course of prednisone and transfused at that time. Very rarely, Crohn's disease can erode into a vessel when it goes transmural, but this is probably less likely than the above probable diagnoses. He did not appear to have a rapid transit upper GI bleed. There was nothing clinically, historically, or radiographically to suggest an aortoenteric fistula. He was recently in [facility] 06/28/17 - 06/30/17 on the surgical service, with a probable flare of Crohn's disease rather than appendicitis, & he was discharged on Cipro 500 mg po BID & Flagyl 500 mg po TID. He had taken a few NSAIDs last week, at the time of his RLQ pain, [employer]. He was on a baby aspirin daily, but denied any history of HI or CVA. He had an apparent vasovagal event when attempting to defecate and/or pass blood in the ER, which subsided spontaneously , without the need for atropine. He reportedly had vasovagal events in the past. The elevated AST/ALT were noted (on Provastatin). 07/02/17: Stool C&S, Shiga toxin, & C. difficile toxin A&B- all negative. 07/02/17: *Fe 58, TIBC 336, Fe sat 17.3%, ferritin 325. 07/02/17: *ROSELYN, *AMA- pending 07/03/17: *Hep A Ab, Hep Bs Ag, Hep C Ab, Hep B core Ab- *all negative. 07/03/17: 0015: WBC 11.4 (86% gran/10 gran Ab), H/H 11.3/33.1, MCV 84.2, RDW 13.2, PLT 349, glu 114, BUN/Cr 12/0.8, GFR > 60, Na 139, K 4.4, HCO3 25, AG 9, Mg 1.9, Ca 8.0, PO4 3.4, alb 3.4, TBil 0.7, AST 86, ALT 111 07/03/17: 0500: WBC 8.6, H/H 10.5/31.7, PLT 333, *ESR 12, glu 112, BUN/Cr 10/0.8 , GFR > 60, Na 141, K 4.1, HCO3 26, AG 12, Mg 1.9, Ca 8.0, PO4 3.5. alb 3.4, glob 2.5, TBil 0.7, alk phos 37, AST 82, ALT 106 *As of 07/03/17, patient was hemodynamically stable, normotensive, non- tachycardic & afebrile, with O2 sat RA 98%. He completed the gallon of Globevestorly & was NPO, on IV NS @ 100 cc/hr. He remained in the ICU. His GI bleeding seemed to have subsided. His H/H had dropped, as expected, but he had not required any tranfusion. He denied any fevers, chills, CP, SOB, abdominal pain, nausea, vomiting, hematemesis, melena, or recurrent BRBPR. He was resting comfortably. His baby ASA was on hold. He was on IV Protonix 40 mg daily for GERD. He remained on empiric IV Cipro & Flagyl for his Crohn's (rather than AP). A surgical consult was pending. 07/03/17: *Combined follow-up colonoscopy to the terminal ileum, plus follow-up upper endoscopy to the jeunum (*120 cm from the incisors), with the pediatric colonoscope from above- Impression: 1. Extensive left-sided diverticula. (*s/p presumed resolved diverticular bleed ). 2. Inflamed, erythematous ICV with superficial erosions (bxs deferred). 3. Minimal inflammation of the last 2 cm of the terminal ileum (bxs deferred). 4. 3 cm sliding hiatal hernia pouch, 40-43 cm, with Z line at 40 cm. 5. Incidental diminutive sessile proximal gastric polyps (max diameter 4 mm in the fundus, posterior wall, & lesser curvature- left intact, probably related to PPI use). 6. Otherwise, normal EGD to the jejunum, 120 cm from the incisors, with the pediatric colonoscope from above. 07/03/17: 1652: WBC 9.2, H/H 9.4/27.6, PLT 336 07/04/17: 0510: WBC 7.0, H/H 9.4/28.5, PLT 289, BUN/Cr 10/0.8, GFR > 60, Na 140, K 3.8, HCO3 27, AG 8. *As of 07/04/2017, the patient remained hemodynamically stable and afebrile, with O2 sat RA 99%. He had no recurrent overt GI bleeding. His Hgb had stabilized at 9.4, without the need for blood transfusion. He was continued on his Cipro & Flagyl (rxd last admission), in view of the probable flare of relatively stable Crohn's disease > AP, based on his previous imaging studies. He was seen in surgical consultation by Dr. Milian on 07/03/17, who concurred with the treatment plan. He was on PPI for stable GERD & hiatal hernia. The patient stated that the bloody diarrhea he had when the Crohn's was initially diagnosed in his 20's, was nothing like the amount of spontaneous BRBPR that he exhibited this admission. Again, most likely, the above was a resolved diverticular bleed as opposed to bleeding from Crohn's disease going transmural into a vessel. The patient had a brown BM 07/04/17. There was no overt rebleeding or melena. He tolerated a regular diet and was ambulating. He had no CP, SOB. palpitations, or LOC. SUGGEST: Low residue diet. Continue Protonix 40 mg po daily (hx mild GERD). Continue to hold baby ASA for at least 7-10 days (no hx HI or CVA; remote hx afib in 2009- patient does not see cardiology & was advised to f/u with PMD to see if baby ASA has to be resumed down the road). No NSAIDS. *Elevated LFTs- AST/ALT noted (r/o pericholangitis associated with IBD, ? statin related, r/o fatty liver, etc). Await 07/02/17: ROSELYN, AMA. *Advise outpt RUQ sono- the patient told me he is awaiting a renal sono by urology to workup the right renal cyst noted on CT & he will have him combine the 2 studies). May continue the full 7-10 day course of po Cipro/Flagyl. Okay from GI perspective for D/C to home today. *The patient is to call the office tomorrow & speak to Padmaja to coordinate the remainder of his GI workup. * I advised a repeat CBC x 1 week. *Plans are for outpt PillCam with *patency capsule (to restage Crohn's & also for GI bleed, *although the latter was most likely diverticular in nature), with *eventual semielective repeat colonoscopy with surveillance biopsies, when the patient is not actively bleeding. The patient's Crohn's disease appeared mild, & clinically he does not appear to need biologic agents. *Consideration for outpatient Pentasa and possibly a short course of Budesonide. The above findings and recommendations were again discussed with the patient and his , Karine Robison RN. I also spoke with the [facility] medical housestaff. Further inpatient GI care as needed. Problem List: 1. Lower GI bleed 2. Diverticula of colon 3. Crohn's disease 4. Elevated LFTs Subjective Subjective: 07/03/17: *Combined follow-up colonoscopy to the terminal ileum, plus follow-up upper endoscopy to the jeunum (*120 cm from the incisors), with the pediatric colonoscope from above- Impression: 1. Extensive left-sided diverticula. (*s/p presumed resolved diverticular bleed ). 2. Inflamed, erythematous ICV with superficial erosions (bxs deferred). 3. Minimal inflammation of the last 2 cm of the terminal ileum (bxs deferred). 4. 3 cm sliding hiatal hernia pouch, 40-43 cm, with Z line at 40 cm. 5. Incidental diminutive sessile proximal gastric polyps (max diameter 4 mm in the fundus, posterior wall, & lesser curvature- left intact, probably related to PPI use). 6. Otherwise, normal EGD to the jejunum, 120 cm from the incisors, with the pediatric colonoscope from above. 07/03/17: 1652: WBC 9.2, H/H 9.4/27.6, PLT 336 07/04/17: 0510: WBC 7.0, H/H 9.4/28.5, PLT 289, BUN/Cr 10/0.8, GFR > 60, Na 140, K 3.8, HCO3 27, AG 8. *As of 07/04/2017, the patient remained hemodynamically stable and afebrile, with O2 sat RA 99%. He had no recurrent overt GI bleeding. His Hgb had stabilized at 9.4, without the need for blood transfusion. He was continued on his Cipro & Flagyl (rxd last admission), in view of the probable flare of relatively stable Crohn's disease > AP, based on his previous imaging studies. He was seen in surgical consultation by Dr. Milian on 07/03/17, who concurred with the treatment plan. He was on PPI for stable GERD & hiatal hernia. The patient stated that the bloody diarrhea he had when the Crohn's was initially diagnosed in his , was nothing like the amount of spontaneous BRBPR that he exhibited this admission. Again, most likely, the above was a resolved diverticular bleed as opposed to bleeding from Crohn's disease going transmural into a vessel. The patient had a brown BM 07/04/17. There was no overt rebleeding or melena. He tolerated a regular diet and was ambulating. He had no CP, SOB. palpitations, or LOC. Review of Systems: Full 14 point ROS otherwise noncontributory, & as above. Constitutional: Reports: no symptoms EENTM: Reports: no symptoms. Cardiovascular: Reports: no symptoms. Respiratory: Reports: no symptoms. GI: Reports: see HPI, bloody stool-> *resolved. *Brown stool on 07/04/17. Genitourinary: Reports: no symptoms. Psychiatric: Reports: no symptoms. Objective Vital Signs and I&Os Vital Signs Date Time Temp Pulse Resp B/P B/P Pulse O2 O2 Flow FiO2 Mean Ox Delivery Rate 07/03 2340 98.1 72 14 124/68 99 Room Air 07/03 1600 98.2 90 18 136/70 97 Room Air Intake & Output 07/04 1600 07/04 0400 07/03 1600 07/03 0400 07/02 1600 07/02 0400 Intake Total 906 407 7862 1300 Output Total 4225 375 Balance 679 124 7716 925 Intake, IV 354 178 2530 1300 Intake, Oral 006 937 9223 Output, Stool 3050 Output, Urine 1175 375 Patient 167 lb 175 lb Weight Weight Bed scale Reported by Patient Measurement Method Physical Exam: Well-developed, well-nourished male, in no apparent distress. Sclera anicteric. Conjunctiva pink. Oropharynx clear. No oral thrush. No apthous ulcers. There is no adenopathy, thyromegaly, or JVD. No peripheral stigmata of inflammatory bowel disease or chronic liver disease on exam. No spiders on the anterior chest wall. No gynecomastia. No CVA tenderness. No spine tenderness. Lungs: clear to A &P. No wheezing, rales, or rhonchi. Heart exam: regular rate rhythm, S1 and S2, without any murmur. Abdominal exam: normal bowel sounds, soft belly, nontender, without guarding or rebound. Reducible umbilical hernia. Otherwise, no mass. No organomegaly. No fluid shift. No pulsatile mass. Digital rectal exam: done by ER 07/02/17: bright red blood with clots, without stool. Obviously, OB-positive (brown stool on 07/04/17, without fresh blood). Extremities: without C, C, or E. No palpable cords. No rash. No acute arthropathy. No palmar erythema. No Dupuytren's contractures. Distal pulses 2+ bilaterally. DTRs 2+ bilaterally. Alert and oriented x 3. Motor 5/5 B/L. No tremor. No asterixis. Current Medications: Current Medications Sig/Malvin Start time Last Medication Dose Route Stop Time Status Admin Ciprofloxacin 400 MG Q12 07/03 0900 AC 07/03 Dextrose/Water 200 ML IV 2038 Metronidazole 500 MG IQ8 07/03 0000 AC 07/04 N/A 1 UNIT IV 0734 Pantoprazole Sodium 40 MG DAILY 07/03 0900 AC 07/03 IV 0952 Pravastatin Sodium 40 MG 1700 / 1700 AC 07/03 PO 1636 Sodium Chloride 1,000 ML Q10H 07/02 2345 DC 07/03 IV 0952 Results Pertinent Lab Results: Laboratory Tests 07/04 07/03 0510 1652 Chemistry Sodium (137 - 145 mmol/L) 140 Potassium (3.5 - 5.1 mmol/L) 3.8 Chloride (98 - 107 mmol/L) 105 Carbon Dioxide (22 - 30 mmol/L) 27 Anion Gap (5 - 16) 8 BUN (9 - 20 mg/dL) 10 Creatinine (0.7 - 1.2 mg/dL) 0.8 Estimated GFR (>60 ml/min) > 60 BUN/Creatinine Ratio (7 - 25 %) 12.5 Hematology CBC w Diff NO MAN DIFF REQ NO MAN DIFF REQ WBC (4.8 - 10.8 /CUMM) 7.0 9.2 RBC (4.70 - 6.10 /CUMM) 3.32 L 3.28 L Hgb (14.0 - 18.0 G/DL) 9.4 L 9.4 L Hct (42 - 52 %) 28.5 L 27.6 L MCV (80.0 - 94.0 FL) 85.9 84.3 MCH (27.0 - 31.0 PG) 28.3 28.8 MCHC (33.0 - 37.0 G/DL) 33.0 34.1 RDW (11.5 - 14.5 %) 13.6 13.2 Plt Count (130 - 400 /CUMM) 289 336 MPV (7.4 - 10.4 FL) 7.5 7.4 Gran % (42.2 - 75.2 %) 61.1 69.8 Lymphocytes % (20.5 - 51.1 %) 24.5 16.3 L Monocytes % (1.7 - 9.3 %) 9.5 H 11.8 H Eosinophils % (0 - 5 %) 4.4 1.6 Basophils % (0.0 - 2.0 %) 0.5 0.5 Absolute Granulocytes (1.4 - 6.5 /CUMM) 4.3 6.4 Absolute Lymphocytes (1.2 - 3.4 /CUMM) 1.7 1.5 Absolute Monocytes (0.10 - 0.60 /CUMM) 0.7 H 1.1 H Absolute Eosinophils (0.0 - 0.7 /CUMM) 0.3 0.1 Absolute Basophils (0.0 - 0.2 /CUMM) 0 0 12 07/03 0842 0500 Chemistry Sodium (137 - 145 mmol/L) 142 Potassium (3.5 - 5.1 mmol/L) 4.1 Chloride (98 - 107 mmol/L) 105 Carbon Dioxide (22 - 30 mmol/L) 26 Anion Gap (5 - 16) 12 BUN (9 - 20 mg/dL) 10 Creatinine (0.7 - 1.2 mg/dL) 0.8 Estimated GFR (>60 ml/min) > 60 Glucose (65 - 99 mg/dL) 112 H Calcium (8.4 - 10.2 mg/dL) 8.0 L Phosphorus (2.5 - 4.5 mg/dL) 3.5 Magnesium (1.6 - 2.3 mg/dL) 1.9 Total Bilirubin (0.2 - 1.3 mg/dL) 0.7 Direct Bilirubin (< 0.4 mg/dL) 0 AST (17 - 59 U/L) 82 H ALT (21 - 72 U/L) 106 H Alkaline Phosphatase (< 127 U/L) 37 C-React Prot High Sens (1.0 - 3.0 mg/L) 5.3 H Total Protein (6.3 - 8.2 g/dL) 5.9 L Albumin (3.5 - 5.0 g/dL) 3.4 L Hematology CBC w Diff NO MAN DIFF REQ WBC (4.8 - 10.8 /CUMM) 8.6 RBC (4.70 - 6.10 /CUMM) 3.75 L Hgb (14.0 - 18.0 G/DL) 10.5 L Hct (42 - 52 %) 31.7 L MCV (80.0 - 94.0 FL) 84.6 MCH (27.0 - 31.0 PG) 27.9 MCHC (33.0 - 37.0 G/DL) 33.0 RDW (11.5 - 14.5 %) 13.1 Plt Count (130 - 400 /CUMM) 333 MPV (7.4 - 10.4 FL) 7.2 L Gran % (42.2 - 75.2 %) 77.5 H Lymphocytes % (20.5 - 51.1 %) 12.9 L Monocytes % (1.7 - 9.3 %) 8.3 Eosinophils % (0 - 5 %) 0.9 Basophils % (0.0 - 2.0 %) 0.4 Absolute Granulocytes (1.4 - 6.5 /CUMM) 6.7 H Absolute Lymphocytes (1.2 - 3.4 /CUMM) 1.1 L Absolute Monocytes (0.10 - 0.60 /CUMM) 0.7 H Absolute Eosinophils (0.0 - 0.7 /CUMM) 0.1 Absolute Basophils (0.0 - 0.2 /CUMM) 0 ESR Westergren (0 - 10 MM) 12 H Serology Hepatitis A IgM Ab Cancelled Hep Bs Antigen Cancelled Hep B Core IgM Ab Conf Cancelled Hepatitis C Antibody Cancelled 07/03 07/02 0015 2130 Chemistry Sodium (137 - 145 mmol/L) 139 Potassium (3.5 - 5.1 mmol/L) 4.4 Chloride (98 - 107 mmol/L) 105 Carbon Dioxide (22 - 30 mmol/L) 25 Anion Gap (5 - 16) 9 BUN (9 - 20 mg/dL) 12 Creatinine (0.7 - 1.2 mg/dL) 0.8 Estimated GFR (>60 ml/min) > 60 Glucose (65 - 99 mg/dL) 114 H Calcium (8.4 - 10.2 mg/dL) 8.0 L Phosphorus (2.5 - 4.5 mg/dL) 3.4 Magnesium (1.6 - 2.3 mg/dL) 1.9 Total Bilirubin (0.2 - 1.3 mg/dL) 0.7 AST (17 - 59 U/L) 86 H ALT (21 - 72 U/L) 111 H Albumin (3.5 - 5.0 g/dL) 3.4 L Hematology CBC w Diff NO MAN DIFF REQ Cancelled WBC (4.8 - 10.8 /CUMM) 11.4 H Cancelled RBC (4.70 - 6.10 /CUMM) 3.93 L Cancelled Hgb (14.0 - 18.0 G/DL) 11.3 L Cancelled Hct (42 - 52 %) 33.1 L Cancelled MCV (80.0 - 94.0 FL) 84.2 Cancelled MCH (27.0 - 31.0 PG) 28.7 Cancelled MCHC (33.0 - 37.0 G/DL) 34.1 Cancelled RDW (11.5 - 14.5 %) 13.2 Cancelled Plt Count (130 - 400 /CUMM) 349 Cancelled MPV (7.4 - 10.4 FL) 7.6 Cancelled Gran % (42.2 - 75.2 %) 86.2 H Lymphocytes % (20.5 - 51.1 %) 8.2 L Monocytes % (1.7 - 9.3 %) 4.7 Eosinophils % (0 - 5 %) 0.5 Basophils % (0.0 - 2.0 %) 0.4 Absolute Granulocytes (1.4 - 6.5 /CUMM) 9.9 H Absolute Lymphocytes (1.2 - 3.4 /CUMM) 0.9 L Absolute Monocytes (0.10 - 0.60 /CUMM) 0.5 Absolute Eosinophils (0.0 - 0.7 /CUMM) 0.1 Absolute Basophils (0.0 - 0.2 /CUMM) 0 Serology Hepatitis A IgM Ab (NONREACTIVE) NONREACTIVE Hep Bs Antigen (NONREACTIVE) NONREACTIVE Hep B Core IgM Ab Conf (NONREACTIVE) NONREACTIVE Hepatitis C Antibody (NONREACTIVE) NONREACTIVE 07/02 1720 Chemistry Sodium (137 - 145 mmol/L) 141 141 Potassium (3.5 - 5.1 mmol/L) 3.7 4.0 Chloride (98 - 107 mmol/L) 107 104 Carbon Dioxide (22 - 30 mmol/L) 24 27 Anion Gap (5 - 16) 10 11 BUN (9 - 20 mg/dL) 15 14 Creatinine (0.7 - 1.2 mg/dL) 0.8 0.8 Estimated GFR (>60 ml/min) > 60 > 60 BUN/Creatinine Ratio (7 - 25 %) 18.8 17.5 Glucose (65 - 99 mg/dL) 93 Calcium (8.4 - 10.2 mg/dL) 8.8 Troponin I (<0.11 ng/ml) < 0.01 Hematology CBC w Diff NO MAN DIFF REQ NO MAN DIFF REQ WBC (4.8 - 10.8 /CUMM) 14.0 H 7.9 RBC (4.70 - 6.10 /CUMM) 4.14 L 4.76 Hgb (14.0 - 18.0 G/DL) 11.6 L 13.3 L Hct (42 - 52 %) 35.0 L 40.6 L MCV (80.0 - 94.0 FL) 84.5 85.4 MCH (27.0 - 31.0 PG) 28.1 28.0 MCHC (33.0 - 37.0 G/DL) 33.2 32.8 L RDW (11.5 - 14.5 %) 13.3 13.5 Plt Count (130 - 400 /CUMM) 367 350 MPV (7.4 - 10.4 FL) 7.3 L 7.4 Gran % (42.2 - 75.2 %) 66.6 67.1 Lymphocytes % (20.5 - 51.1 %) 21.1 19.3 L Monocytes % (1.7 - 9.3 %) 10.0 H 10.2 H Eosinophils % (0 - 5 %) 1.8 2.6 Basophils % (0.0 - 2.0 %) 0.5 0.8 Absolute Granulocytes (1.4 - 6.5 /CUMM) 9.3 H 5.3 Absolute Lymphocytes (1.2 - 3.4 /CUMM) 3.0 1.5 Absolute Monocytes (0.10 - 0.60 /CUMM) 1.4 H 0.8 H Absolute Eosinophils (0.0 - 0.7 /CUMM) 0.2 0.2 Absolute Basophils (0.0 - 0.2 /CUMM) 0.1 0.1 Miscellaneous Ref Lab Test Result Pending 07/02 07/02 1125 1024 Chemistry Sodium (137 - 145 mmol/L) 141 Potassium (3.5 - 5.1 mmol/L) 4.3 Chloride (98 - 107 mmol/L) 103 Carbon Dioxide (22 - 30 mmol/L) 26 Anion Gap (5 - 16) 12 BUN (9 - 20 mg/dL) 18 Creatinine (0.7 - 1.2 mg/dL) 0.8 Estimated GFR (>60 ml/min) > 60 BUN/Creatinine Ratio (7 - 25 %) 22.5 Glucose (65 - 99 mg/dL) 103 H Lactic Acid (0.7 - 2.1 mmol/L) 1.0 Calcium (8.4 - 10.2 mg/dL) 9.1 Iron (49 - 181 ug/dL) 58 TIBC (261 - 462 ug/dL) 336 Ferritin (17.9 - 464 ng/mL) 325.0 Total Bilirubin (0.2 - 1.3 mg/dL) 0.6 AST (17 - 59 U/L) 106 H ALT (21 - 72 U/L) 117 H Alkaline Phosphatase (< 127 U/L) 46 Total Protein (6.3 - 8.2 g/dL) 7.1 Albumin (3.5 - 5.0 g/dL) 4.3 Globulin (1.9 - 4.2 gm/dL) 2.8 Albumin/Globulin Ratio (1.1 - 2.2 %) 1.5 Coagulation PT (9.4 - 12.5 SEC) 14.4 H INR (0.90 - 1.17) 1.32 H APTT (25 - 37 SEC) 31 Hematology CBC w Diff NO MAN DIFF REQ WBC (4.8 - 10.8 /CUMM) 6.8 RBC (4.70 - 6.10 /CUMM) 5.02 Hgb (14.0 - 18.0 G/DL) 13.2 L Hct (42 - 52 %) 42.5 MCV (80.0 - 94.0 FL) 84.8 MCH (27.0 - 31.0 PG) 26.3 L MCHC (33.0 - 37.0 G/DL) 31.1 L RDW (11.5 - 14.5 %) 13.1 Plt Count (130 - 400 /CUMM) 356 MPV (7.4 - 10.4 FL) 7.6 Gran % (42.2 - 75.2 %) 71.0 Lymphocytes % (20.5 - 51.1 %) 16.6 L Monocytes % (1.7 - 9.3 %) 9.9 H Eosinophils % (0 - 5 %) 2.2 Basophils % (0.0 - 2.0 %) 0.3 Absolute Granulocytes (1.4 - 6.5 /CUMM) 4.8 Absolute Lymphocytes (1.2 - 3.4 /CUMM) 1.1 L Absolute Monocytes (0.10 - 0.60 /CUMM) 0.7 H Absolute Eosinophils (0.0 - 0.7 /CUMM) 0.2 Absolute Basophils (0.0 - 0.2 /CUMM) 0 Immunology ROSELYN Titer Pending Anti-Nuclear Antibody Pending Urines Urine Color (YEL,AMB,STR) YEL Urine Clarity (CLEAR) CLEAR Urine pH (5.0 - 8.0) 6.5 Ur Specific [place] (1.001 - 1.035) 1.020 Urine Protein (NEG,<30 MG/DL) NEG Urine Ketones (NEG) NEG Urine Nitrite (NEG) NEG Urine Bilirubin (NEG) NEG Urine Urobilinogen (0.1 - 1.0 EU/dl) 0.2 Ur Leukocyte Esterase (NEG) NEG Ur Microscopic SEDIMENT EXAMINED Urine RBC (0 - 5 /HPF) RARE Urine Hemoglobin (NEG) TRACE-LYSED H Urine Glucose (N MG/DL) NEG Imaging/Other Studies: 07/02/17: *EKG- NSR @ 78, nl axis, nl interval, without ischemic change. 07/02/17: *CT ABD & PELVIS ANGIOGRAM- IMPRESSION: 1. *No evidence of extravasation of contrast into the gastrointestinal track. Site of GI bleeding not defined. 2. There is diverticulosis of the colon but no evidence of diverticulitis. No acute change of bowel wall. No bowel obstruction. 3. There are regions of edema and stranding in the mesentery. There is an area in the left lower quadrant around the cecum. This is less pronounced however than the CAT scan of 06/28/2017. There is a second area in the left mid upper abdomen which is more pronounced than the prior CAT scan of 06/28/2017. Both of these areas are associated with shotty subcentimeter lymph nodes but no abscess or free air. The surrounding bowel loops are normal. 4. The appendix is normal 5. Atherosclerotic vascular wall calcifications of aorta 6. There are multiple small hepatic cyst. 7. Hyperdense cyst upper pole of right kidney. This critical result was discussed with Dr. Robles on 07/02/2017, 10:00 PM and it was ascertained that the content and urgency of the report was understood at the time of direct communication. DICTATED BY: Ruben Verdin MD DATE/TIME DICTATED:07/02/17212107/03/17: *Combined follow-up colonoscopy to the terminal ileum, plus follow-up upper endoscopy to the jeunum (*120 cm from the incisors), with the pediatric colonoscope from above- Impression: 1. Extensive left-sided diverticula. (*s/p presumed resolved diverticular bleed ). 2. Inflamed, erythematous ICV with superficial erosions (bxs deferred). 3. Minimal inflammation of the last 2 cm of the terminal ileum (bxs deferred). 4. 3 cm sliding hiatal hernia pouch, 40-43 cm, with Z line at 40 cm. 5. Incidental diminutive sessile proximal gastric polyps (max diameter 4 mm in the fundus, posterior wall, & lesser curvature- left intact, probably related to PPI use). 6. Otherwise, normal EGD to the jejunum, 120 cm from the incisors, with the pediatric colonoscope from above.
--- NOTE | 2017-07-04 10:25 | Patient Discharge Instructions ---
Discharge Instructions General Discharge Information You were seen/treated for: Lower GI bleeding You had these procedures: Colonoscopy Special Instructions: Please follow up with your PCP in a week. Please follow up with your Muff Winder in a week Please call the office or Dr Jaramillo tomorrow & speak to Padmaja to coordinate the remainder your GI workup. Have a repeat CBC x 1 week. We have provided you with a script. Please follow up with in a week Please hold aspirin for atleast 7-10 days after the bleed. Please restart on . Please follow up with obtaining a outpatient pill cam and eventual colonoscopy as outpatient. Diet Recommended Diet: diverticular diet Activity Full Activity/No Limits: Yes Activity Self Limited: Yes Acute Coronary Syndrome Inclusion Criteria At DC or during hospital stay patient has or had the following: ACS DIAGNOSIS No Discharge Core Measures Meds if any: Prescribed or Continued at Discharge Meds if any: NOT Prescribed or Continued at Discharge Congestive Heart Failure Inclusion Criteria At DC or during hospital stay patient has or had the following: CHF DIAGNOSIS No Discharge Core Measures Meds if any: Prescribed or Continued at Discharge Meds if any: NOT Prescribed or Continued at Discharge Cerebrovascular accident Inclusion Criteria At DC or during hospital stay patient has or had the following: CVA/TIA Diagnosis No Discharge Core Measures Meds if any: Prescribed or Continued at Discharge Meds if any: NOT Prescribed or Continued at Discharge Venous thromboembolism Inclusion Criteria VTE Diagnosis No VTE Type NONE VTE Confirmed by (Test) NONE Discharge Core Measures - Per Current guidelines, there needs to be overlap - treatment for the first 5 days of Warfarin therapy. - If discharged on Warfarin prior to 5 days of - overlap therapy, the patient will need to be - assessed for post discharge needs including - *Post discharge parental anticoagulation - *Warfarin and/or parental anticoagulation education - *Follow up date to check INR post discharge At least 5 days overlap therapy as Inpatient No Meds if any: Prescribed or Continued at Discharge Note: Overlap Therapy is Warfarin and Anticoagulant Meds if any: NOT Prescribed or Continued at Discharge
[2017-07-04] MEDS ORDERED: PROTONIX40 M3 PO ×2 (10:46→11:03)
--- NOTE | 2017-07-04 16:22 | Discharge Summary ---
Visit Information Visit Dates Admission Date: 07/02/17 Discharge Date: 07/04/17 Hospital Course Course Attending Physician: Augustine Sanderson MD Primary Care Physician: Gabe LYON,Popeye Bajwa Consulting Request: Consulting Specialty: Gastroenterology Consulting Physician: Reason for Consult: Lower GI bleed Hospital Course: Patient is 61-year-old male with past medical history significant for HTN, HLD, paroxysmal A. fib (now in sinus), renal stones, Crohn's disease (40 years ago) in remission presented with bright red blood per rectum. He is completely asymptomatic presentation and had so for 10 bloody bowel movements. This is followed by an episode of syncope (vasovagal) while sitting on a commode. He was recently admitted for atypical presentation of appendicitis with cecal inflammation treated medically and discharged with Cipro and Flagyl for a total of 10 days. Vital signs at presentation temp 95.5, heart rate 73, blood pressure 60/90 mmHg, saturating well on room air. Physical examination did show normal heart sounds, clear lungs, distended abdomen with normal bowel sounds. Labs did show white count 6.8--> 14, H&H 13/42--> 11/35. Normal chem panel with BUN/ creatinine 15/0.8. AST/ALT 106/1 1 7, PT 14.4, INR 1.3. UA is clear. CT abdomen done June 28, 2017 did show cecal inflammation and appendiceal base inflammation concerned about colitis/appendicitis. CT angiogram of abdomen and pelvis performed didnot show any active bleeding. Admitted to ICU and stable to floor Problem list 1. Lower GI bleed probably diverticular in nature 2. Crohn's disease in remission 3. Hypertension 4. Hyperlipidemia Lower gastrointestinal bleed - possibly diverticular/angiodyplasia related Asymptomatic. He had a history of chrons disease in the past but had been in remission since 40yrs ago. Last colonoscopy 2007. No similar episodes in the past. Evidence of bright red blood without any elevation in BUN/cr suggest more of lower GI bleed. Orthostatic positive with an episode of vasovagal syncope indicating intravenous volume depletion. CT angio did not reveal any active bleed, however there are regions of mesenteric stranding. Evidence of Diverticulosis without diverticulitis. Intially placed on 2 large bore IV lines and aggressivlu resuscitated. Intially holded all antihypertensives. Kept NPO with golytely prep. Underwent colonoscopy on 07/03/17 which did not show any evidence of bleeding. Advanced diet slowly and he improved without any further episodes of bleeding. H&H dropped to 9.4/28 and remained stable. He is requested to have an outpatient pill cam study and based on the results colonoscopy at somepoint with biopsy. is on board and patient will follow up after discharge. He is asked to hold aspirin for the next 7-10 days and increase omez to 40mg daily. A follow up CBC in a week. Continued his cipro and flagyl to complete a course of 10days. Transaminitis AST/ALT - 100's. Probably secondary to statins/low flow state. Please repeat as outpatient. Renal lesion on CT scan A nonenhancing upper pole of the right kidney there is a 2.5 cm hyperdense lesion. He also had h/o renal stones. He was asked to follow up with as outpatient. HTN Holded all the medications while in hospital. Restarted atenolol, lisinopril, Norvasc at discharge as tolerated. HLD Continued pravastatin 40mg daily DVT prophylaxis ALPS - active bleed Code status full code Complications: NONE Allergies: Coded Allergies: No Known Allergies (06/28/17) Significant Procedures: SERVICE DATE: 07/02/17 EXAM TYPE: CAT - CT ABD & PELVIS ANGIOGRAM EXAMINATION: CT ANGIOGRAM ABDOMEN AND PELVIS CLINICAL INFORMATION: Diverticular bleed versus ischemia. History of Crohn's disease. COMPARISON: CT scan abdomen pelvis 06/28/2017 TECHNIQUE: Multiple axial images were obtained through the abdomen and pelvis prior to and following the administration of 95 mL of Optiray 320 intravenous contrast. Coronal and sagittal reformatted images are performed at the CT scanner. No 3-D imaging performed. DLP: 859.72 mGy-cm FINDINGS: VASCULAR: There is atherosclerotic vascular wall calcifications of the aorta and iliac arteries there is normal enhancement of the celiac axis, SMA. Normal enhancement of the right and left renal arteries. There are 2 left-sided renal arteries and a single right-sided renal artery. There is no stenosis. There is no extravasation of contrast into the bowel. No evidence for active GI bleeding. LUNG BASES: The visualized lung bases are unremarkable. LIVER, GALLBLADDER, AND BILIARY TREE: There are scattered low attenuating lesions in right and left lobe of liver which are not enhancing postcontrast. These are consistent with hepatic cysts. Largest at the dome left lobe measuring 1.3 cm. There is no enhancing lesion. There is no hepatic bile duct dilatation. The gallbladder is unremarkable with no evidence of radiopaque gallstones, gallbladder wall thickening, or obvious pericholecystic inflammatory changes. PANCREAS: No acute change of the pancreas. No mass. No pancreatic duct dilatation. SPLEEN: Spleen normal in size and contour. No focal lesion. ADRENAL GLANDS: Adrenal glands are normal in size. No focal mass. KIDNEYS AND URETERS: In the upper pole of the right kidney there is a 2.5 cm hyperdense lesion. On precontrast study this has a density measurement of 50 Hounsfield units. After the administration of contrast this has a density measurement of 57 Hounsfield units, nonenhancing lesion. This is consistent with a hyperdense cyst. There is no renal or ureteral calculi. There is no hydronephrosis. BLADDER: Unremarkable. GASTROINTESTINAL TRACT: There are diverticula of the colon without diverticulitis. No acute change of the bowel. No bowel obstruction. No bowel wall thickening or edema. Moderate volume of stool throughout the colon. The appendix is normal. The small bowel loops are unremarkable. There is a small hiatal hernia. MESENTERY: There is subtle stranding in the mesentery around the cecum associated with small subcentimeter lymph nodes. This mesenteric stranding has reduced in severity since the exam of 06/28/2017. The terminal ileum is normal as are all the small bowel loops. There is also edema in the mesentery left side mid abdomen also with multiple small lymph nodes. This region, seen on axial image 32 (2) is more prominent than the prior CAT scan 06/28/2017. There is no abscess. Normal-appearing small bowel loops surround this region of the mesentery. Indeed there is no abscess throughout the abdomen. There is no free air. ABDOMINAL WALL: There is a fat-containing periumbilical hernia. Herniated fat pocket measures 2.5 x 4 x 1.2 cm. The defect in the wall measures about 7 mm. There are surgical mesh in the left groin with no recurrent hernia. LYMPH NODES: Normal. PELVIC VISCERA: Unremarkable. OSSEOUS STRUCTURES: Unremarkable. IMPRESSION: 1. No evidence of extravasation of contrast into the gastrointestinal track. Site of GI bleeding not defined. 2. There is diverticulosis of the colon but no evidence of diverticulitis. No acute change of bowel wall. No bowel obstruction. 3. There are regions of edema and stranding in the mesentery. There is an area in the left lower quadrant around the cecum. This is less pronounced however than the CAT scan of 06/28/2017. There is a second area in the left mid upper abdomen which is more pronounced than the prior CAT scan of 06/28/2017. Both of these areas are associated with shotty subcentimeter lymph nodes but no abscess or free air. The surrounding bowel loops are normal. 4. The appendix is normal 5. Atherosclerotic vascular wall calcifications of aorta 6. There are multiple small hepatic cyst. 7. Hyperdense cyst upper pole of right kidney. Date of Last Colonoscopy: 05/11/07 Procedure Date: 07/03/17 GI Procedure(s): Combined follow-up colonoscopy to the terminal ileum, plus follow-up upper endoscopy to the jeunum (120 cm from the incisors), with the pediatric colonoscope from above Inspector And Clipper: MARI LYON,LEN Whelan ASA Classification: III (III-E) Indications: INDX: (*Please refer to my dictated GI consult of 07/02/17). 61 y/o male, history of Crohn's disease (off meds x years, since dx in , reportedly ileal & ICV), admitted to the ICU 07/02/17 with GI bleed. 07/02/17: CTA AP- no active extravasation, site of bleeding not identified. Clinically, with probable diverticular bleed > angiodysplasia; doubt transmural Crohn's eroding into a vessel. There is no FHx colon Ca. A 1st cousin has Crohn's. The patient had recently been hospitalized at [facility] 06/28/17-06/30/17 with a probable mild flare of Crohn's > AP, & was rxd Cipro/Flagyl. Meds Received: O2- 4L nc & MAC as per Chuy Salvador, of [facility]. Patient's Tolerance: good Complications: None Extent Reached: TI/jejunum (120 cm from the incisors, with the pediatric colonoscope from above) . Procedure: Combined follow-up colonoscopy to the terminal ileum, plus follow-up upper endoscopy to the jeunum (120 cm from the incisors), with the *pediatric colonoscope from above, were performed with the Olympus high-definition videoscopes from above and below, after obtaining informed consent from the patient for each procedure prior to IV sedation, with the monitoring analyst and pulse oximeter, after 1 gallon of GoLYTELY, with the assistance of the GI nurses , Angelica & Rosa, & with Dr. Vera, of [facility]. *Documenting photographs were obtained from above and below, and placed inside the patient's chart. *The patient and his were made aware preoperatively that the purpose of the endoscopic procedures were to help determine the etiology of the bleeding, not for surveillance purposes regarding his Crohn's disease. Initially, follow-up colonoscopy to the terminal ileum was performed with the Olympus high-definition videocolonoscope, after obtaining informed consent from the patient, with the monitoring analyst and pulse oximeter, after 1 gallon of GoLYTELY, with the assistance of Dr. Vera, of [facility]. The prep was very good. The patient was in the left lateral decubitus position throughout the procedure. Direct views of the rectum failed to reveal any external hemorrhoids, fissures, or perianal disease. Digital rectal exam was unremarkable, without any masses. Sphincter tone was normal. Retroflexion in the rectum failed to reveal any significant internal hemorrhoids, gross proctitis, rectal ulcers, or rectal lesions. The colonic mucosa was carefully inspected, both upon insertion and upon withdrawal of the colonoscope. Withdrawal time was certainly adequate. There were fairly extensive left-sided diverticula, in the sigmoid colon and left colon. There were no strictures. I did not appreciate any proximal diverticula. The cecum, base of the appendix, and ileocecal valve were all identified. The last 2 cm the terminal ileum were entered, revealing mild inflammation. The ileocecal valve was inflamed, erythematous, and had several erosions, without any deep ulcerations. The base of the appendix was adjacent to the ileocecal valve, and was slightly distorted, without any lesions. Confirmatory photographs were obtained. Biopsies were deferred at present, so as not to confuse the picture of the GI bleeding. Aside from the inflamed, erythematous ileocecal valve containing erosions, & the mildly inflamed TI, the colonic mucosa otherwise appeared intact and within normal limits to the terminal ileum, without any polyps, lesions, additional colitis, or angiodysplasias. Despite the fact that the patient clinically had a probable diverticular bleed, no active bleeding was seen. Some bilious liquid was washed and suctioned clear from the colon. No fresh or old blood was seen. No active lower GI bleeding was seen. The patient tolerated the procedure well. *Although the patient most likely had a resolved diverticular bleed clinically, after completing the preliminary follow-up colonoscopy to the terminal ileum, a decision was made to proceed with a follow-up upper endoscopy to the jejunum, with the pediatric colonoscope from above. Follow-up upper endoscopy to the jejunum (120 cm from the incisors), was performed with the Olympus high definition *pediatric videocolonoscope from above, after obtaining informed consent from the patient, with the monitoring analyst and pulse oximeter, with the assistance of Dr. Vera, of [facility]. A mouthpiece was placed in the usual fashion to protect the patient's teeth. As the patient had already been set up for the colonoscopy, the patient was placed in the supine position and sedated by [facility]. At this point, the endoscope was advanced from the mouth into the esophagus, using direct visualization technique. I did not inspect the vocal cords. The esophageal mucosa appeared normal. There were no esophageal rings, webs, lesions, strictures, or ulcers. There was no monilia or vesicles. There was no esophageal ribbing. The Z line was well demarcated at 40 cm. There was a 3 cm sliding hiatal hernia pouch, from 40-43 cm. There were no Mamadou erosions. No significant esophageal inflammation was seen. There were no ectopic islands, nor gross Saez's esophagus. There were no esophageal or gastric varices, nor any Alva Walker tear. The mccarthy of the stomach distended normally with air insufflation. Direct and retroflexed views of the stomach were performed. There was nothing endoscopically to suggest gastroparesis or portal gastropathy. Aside from a few incidental, diminuitive, sessile proximal gastric polyps (max diameter 4 mm, probably from PPI), in the fundus, posterior wall of the body, & lesser curvature (left intact), the mucosa of the gastric cardia, fundus, lesser curvature, incisura, body, and antrum otherwise appeared normal, without any gastric ulcers or large gastric lesions. The proximal gastric mucosa was not atrophic-appearing. The pylorus was patent, without any gastric outlet obstruction or channel ulcer. The duodenal bulb and duodenal sweep appeared normal, without any duodenal ulcers, distal ulcerations, or angiodysplasias. I was not able to see the ampulla with the direct-viweing scope. The pediatric colonoscope was then advanced from the upper duodenum down to the jejunum, 120 cm from the incisors. The small bowel mucosa looked normal to this point. The folds of the small bowel were normal in caliber to this point, without any flattening, nodularity, scalloping, or mosaic pattern. No active upper GI bleeding was seen, just bile in the small bowel. The patient tolerated both procedures well. Impression: 1. Extensive left-sided diverticula. (*s/p presumed resolved diverticular bleed ). 2. Inflamed, erythematous ICV with superficial erosions (bxs deferred). 3. Minimal inflammation of the last 2 cm of the terminal ileum (bxs deferred). 4. 3 cm sliding hiatal hernia pouch, 40-43 cm, with Z line at 40 cm. 5. Incidental diminutive sessile proximal gastric polyps (max diameter 4 mm in the fundus, posterior wall, & lesser curvature- left intact, probably related to PPI use). 6. Otherwise, normal EGD to the jejunum, 120 cm from the incisors, with the pediatric colonoscope from above. Follow-up Colonscopy Screening await outpt PillCam, to be f/b surveillance colonoscopy in the near future Pertinent Lab Results: as above Disposition Summary Disposition Principal Diagnosis: Lower GI bleed Additional Diagnosis: HTN Transaminitis HLD Discharge Disposition: home or self care Discharge Instructions General Discharge Information Code Status: Full Code Patient's Diet: Diverticulosis diet otherwise regular Patient's Activity: activity as tolerated Follow-Up Instructions/Appts: Please follow up with your PCP in a week. Please follow up with your Straw Hat Brusher in a week Have a repeat CBC x 1 week. We have provided you with a script. Please follow up with in a week Please hold aspirin for atleast 7-10 days after the bleed. Please restart on . Please follow up with obtaining a outpatient pill cam and eventual colonoscopy as outpatient Medications at Discharge Discharge Medications: Stop taking the following medications: Aspirin (Aspirin*) 81 MG TAB.CHEW ORAL DAILY Omeprazole (Omeprazole) 20 MG CAPSULE. ORAL DAILY Qty = 90 Continue taking these medications: Metronidazole (Flagyl) 500 MG TABLET 1 Tablet ORAL THREE TIMES DAILY Qty = 30 Instructions: do not take with alcohol Comments: Last Taken: 07/04/17 Time: 7:30 AM Ciprofloxacin HCl (Cipro) 500 MG TABLET 1 Tablet ORAL TWICE DAILY Qty = 20 Instructions: . Comments: Last Taken: 07/03/17 Time: 8:30 PM Amlodipine Besylate (Amlodipine Besylate) 5 MG TABLET 1 Tablet ORAL DAILY Qty = 90 Comments: DID NOT RECEIVE IN HOSPITAL Atenolol (Atenolol) 50 MG TABLET 1 Tablet ORAL DAILY Qty = 90 Comments: DID NOT RECEIVE IN HOSPITAL Lisinopril (Lisinopril) 20 MG TABLET 1 Tablet ORAL DAILY Qty = 90 Comments: NOT TAKEN WHILE IN HOSPITAL Pravastatin Sodium (Pravastatin Sodium) 40 MG TABLET 1 Tablet ORAL Every night Qty = 90 Comments: Last Taken: 07/03/17 Time: 4:30 PM Start taking the following new medications: Pantoprazole Sodium (Protonix) 40 MG TABLET. 1 Tablet ORAL DAILY Qty = 30 No Refills Instructions: . Copies To: Mari LYON,Len Whelan; Gabe LYON,Popeye Bajwa Attending MD Review Statement Documenting Attending: Marvin Dsouza MD Other Findings: Discharged in stable condition.
== END 2017-07-04 11:11 | DRG 378 ==
LOC: ERH 09:27 → ERHI 16:45 → EDBEDREQ 19:32 → ERHI 19:44 → ENRESERV 19:58 → ENTRNSPT 21:11 → EDTRNSPTSTS 21:15 → EDTRNSPT 21:15 → CMPTRNSPT 21:31 → CRI 21:35
PROVIDERS: Emergency Medicine; Internal Medicine
PROC: 0DJD8ZZ Inspection of Lower Intestinal Tract, Via Natural or Artificial Opening Endoscopic (ICD-10-PCS; principal; 2017-07-03)
DX: K92.2 Gastrointestinal hemorrhage, unspecified (principal); K50.90 Crohn's disease, unspecified, without complications; I48.0 Paroxysmal atrial fibrillation; E78.5 Hyperlipidemia, unspecified; R55 Syncope and collapse; D62 Acute posthemorrhagic anemia; I10 Essential (primary) hypertension; R74.0 Nonspecific elevation of levels of transaminase and lactic acid dehydrogenase [LDH]; R94.5 Abnormal results of liver function studies; I25.10 Atherosclerotic heart disease of native coronary artery without angina pectoris; R00.0 Tachycardia, unspecified
CPT/HCPCS: CCU; 36415; 74174; 81001; 82436; 86920; 87045; 87147; 93005; 93010; 96360; 99291; J0744; J2405; J3250; J7060

== ENCOUNTER 2017-09-09 18:13 | Inpatient (IN) | payer OTHER ==
[~2017-09-09] VITALS: Ht 180.3 cm; Wt 80.1 kg
[~2017-09-09 18:13] MED LIST changes: +AMLODIPINE BESYL5 M1 PO; +ASPIRIN81 M4 PO; +ATENOLOL50 M1 PO; +LISINOPRIL20 M1 PO; +OMEPRAZOLE20 M2 PO; +PRAVASTATIN SOD40 M2 PO; +PROTONIX40 M3 PO
--- NOTE | 2017-09-09 18:25 | ED CARDIAC/CP/PALPITATIONS ---
History of Present Illness General Chief Complaint: Chest Pain Stated Complaint: CHEST PAIN Source: patient, family, old records Exam Limitations: no limitations Vital Signs & Intake/Output Vital Signs & Intake/Output Vital Signs Date Time Temp Pulse Resp B/P B/P Pulse O2 O2 Flow FiO2 Mean Ox Delivery Rate 09/09 1899 110 130/105 09/09 1854 122 143/93 09/09 1854 124 125/70 09/09 1819 98.3 122 20 143/93 98 Room Air Allergies Coded Allergies: No Known Allergies (09/09/17) Reconcile Medications Amlodipine Besylate 5 MG TABLET 1 TAB PO DAILY HEART (Reported) Atenolol 50 MG TABLET 1 TAB PO DAILY HEART (Reported) Lisinopril 20 MG TABLET 1 TAB PO DAILY HEART (Reported) Multiple Vitamin (Multivitamins) 1 EACH TABLET 1 TAB PO DAILY SUPPLEMENT ( Reported) Pantoprazole Sodium (Protonix) 40 MG TABLET.DR 1 TAB PO DAILY GI PPX . Pravastatin Sodium 40 MG TABLET 1 TAB PO QPM CHOLESTEROL (Reported) Triage Nurses Notes Reviewed? yes HPI: Patient states that at approximately 10:00 last night he felt like he had some heartburn. Patient states he had this substernal pressure-like feeling. Shortly after that he felt like his heart was skipping beats. The pressure sensation has been constant has had the skipping beats. Patient did have a history of axis small atrial fibrillation a few years ago that he was admitted to the hospital and he converted while in the hospital and he was on Coumadin for 6 months but that has been off of it. Patient does take medications for his blood pressure including a beta [place]. Patient states that today he went to work and noticed that he was a little bit short of breath with exertion. He denies any orthopnea. He states the pressure sensation is constant and there is no radiation. That pain does not change with exertion. He finally told his about it this evening and then came in for evaluation. Past History Medical History Any Pertinent Medical History? see below for history Neurological: NONE EENT: NONE Cardiovascular: AFIB (2010- chem cardiovert-> NSR), hypertension, hyperlipidemia Respiratory: NONE Gastrointestinal: NONE (? 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 FH: brain aneurysm FATHER (OBS). , Age 89; Cause: Fall. FH: HTN (hypertension) 1ST COUSIN (Crohn's disease). Hx Contributory? No Review of Systems Review of Systems Constitutional: Reports: no symptoms. EENTM: Reports: no symptoms. Respiratory: Reports: see HPI, short of breath. Cardiovascular: Reports: see HPI, chest pain, palpitations. GI: Reports: no symptoms. Genitourinary: Reports: no symptoms. Musculoskeletal: Reports: no symptoms. Skin: Reports: no symptoms. Neurological/Psychological: Reports: no symptoms. Hematologic/Endocrine: Reports: no symptoms. Immunologic/Allergic: Reports: no symptoms. All Other Systems: Reviewed and Negative Physical Exam Physical Exam General Appearance: well developed/nourished, alert, awake, moderate distress Head: atraumatic, normal appearance Eyes: Bilateral: PERRL, EOMI. Ears, Nose, Throat: normal pharynx, normal ENT inspection Neck: normal inspection, supple, full range of motion Respiratory: normal breath sounds, chest non-tender, no respiratory distress, lungs clear Cardiovascular: tachycardia, irregularly irregular Gastrointestinal: normal bowel sounds, soft, non-tender Back: normal inspection, normal range of motion Extremities: normal inspection, normal capillary refill, normal range of motion, no edema Neurologic/Psych: no motor/sensory deficits, awake, alert, oriented x 3, normal mood/affect Skin: intact, normal color, warm/dry Lymphatic: no anterior cervical yordy Core Measures ACS in differential dx? Yes CVA/TIA Diagnosis No Sepsis Present: No Sepsis Focused Exam Completed? No Progress Differential Diagnosis: AMI, atrial fibrillation, hyperthyroid, myocarditis, pericarditis, pneumonia, pneumothorax, pulmonary embolism Plan of Care: Orders Procedure Date/time Status Heart Healthy Diet 09/10 B Active ED Holding Orders 09/09 1922 Active Admit to inpatient 09/09 1922 Active Vital Signs 09/09 1922 Active Code Status 09/09 1922 Active Patient Data 09/09 1916 Active THYROID STIMULATING HORMONE 09/09 1836 Active PARTIAL THROMBOPLASTIN TIME 09/10 1823 Complete PROTHROMBIN TIME 09/10 1823 Complete D-DIMER 09/10 1823 Complete Telemetry/Wharfinger Chief 09/10 1815 Active TROPONIN LEVEL 09/10 1815 Active MAGNESIUM 09/10 1815 Active COMPREHENSIVE METABOLIC PANEL 09/10 1815 Active CBC WITHOUT DIFFERENTIAL 09/10 1815 Complete EKG 09/09 1812 Active Current Medications Sig/Malvin Start time Last Medication Dose Stop Time Status Admin Heparin Sodium 25,000 UNIT Q24H 09/09 1914 UNVr 09/09 (Porcine) 1919 (Heparin) Sodium Chloride 500 ML Laboratory Tests 09/09/171836: Anion Gap 11, Estimated GFR > 60, BUN/Creatinine Ratio 22.0, Glucose 107 H, Calcium 9.2, Magnesium 2.1, Total Bilirubin 0.8, AST 33, ALT 51, Alkaline Phosphatase 40, Troponin I Pending, Total Protein 7.2, Albumin 4.3, Globulin 2.9 , Albumin/Globulin Ratio 1.5, TSH Pending, PT 11.3, INR 1.04, APTT 29, D-Dimer High Sensitivty < 200, CBC w Diff NO MAN DIFF REQ, RBC 4.82, MCV 85.0, MCH 28.1, MCHC 33.0, RDW 13.1, MPV 7.7, Gran % 55.4, Lymphocytes % 27.2, Monocytes % 13.8 H, Eosinophils % 3.1, Basophils % 0.5, Absolute Granulocytes 4.0, Absolute Lymphocytes 2.0, Absolute Monocytes 1.0 H, Absolute Eosinophils 0.2, Absolute Basophils 0 09/09/171823: TSH Cancelled Diagnostic Imaging: Viewed by Me: Radiology Read. Discussed w/RAD: Radiology Read. CXR Impression: PATIENT: RONNY SAMANO PRESENT AGE: 61 PATIENT ACCOUNT NO: [id number] : 55 LOCATION: [facility] ORDERING PHYSICIAN: Jonelle SMITH SERVICE DATE: 09/09/17-1815 EXAM TYPE: RAD - XRY-CHEST XRAY, TWO VIEWS EXAMINATION: XR CHEST CLINICAL INFORMATION: Chest pain. COMPARISON: None TECHNIQUE: 2 views of the chest were obtained. FINDINGS: No significant abnormality is noted involving the heart, lungs, mediastinum, bony thorax or soft tissues. IMPRESSION: No acute abnormality of chest. DICTATED BY: Ruben Verdin MD DATE/TIME DICTATED:09/09/171858 LUTE PACKER OR APPLIER:VLADIMIR DATE/TIME TRANSCRIBED:09/09/171858 CONFIDENTIAL, DO NOT COPY WITHOUT APPROPRIATE AUTHORIZATION. <Electronically signed in Other Vendor System> SIGNED BY: Ruben Verdin MD 09/09/171903 Initial ED EKG: AFIB, nonspecific ST T wave chg Prior EKG: changed Rhythm Strip: atrial fibrillation Comments: Discussed with Dr. Sandoval, risks and benefits with of anticoagulation. We'll start heparin. This has been discussed with the patient and his and they agree with starting heparin. Departure Departure Disposition: STILL A PATIENT Condition: Stable Clinical Impression Primary Impression: Atrial fibrillation with RVR Referrals: Gabe LYON,Popeye Bajwa (PCP/Family) Departure Forms: Customer Survey General Discharge Information Admission Note Spoke With: Augustine Sanderson MD Documentation of Exam: Documentation of any treatments & extenuating circumstances including Concerns Regarding Discharge (functional status, medication knowledge or non-compliance, living conditions, etc.) that warrant an admission rather than observation: [ Telemetry admission, cardiology consultation, IV heparin, serial enzymes, echocardiogram] Critical Care Note Critical Care Note Critical Care Time: mins: (90 MIN)
[2017-09-09 18:46] LABS: ABSOLUTE BASOPHIL COUNT 0 /CUMM (0.0-0.2); ABSOLUTE EOSINOPHIL COUNT 0.2 /CUMM (0.0-0.7); BASOPHIL % 0.5 % (0.0-2.0); EOSINOPHIL % 3.1 % (0-5); GRANULOCYTE % 55.4 % (42.2-75.2); MEAN CORPUSCULAR HGB 28.1 PG (27.0-31.0); MEAN PLATELET VOLUME 7.7 FL (7.4-10.4); PLATELET COUNT 339 /CUMM (130-400); RBC DISTRIBUTION WIDTH 13.1 % (11.5-14.5); RED BLOOD CELL CT 4.82 /CUMM (4.70-6.10); WHITE BLOOD CELL COUNT 7.2 /CUMM (4.8-10.8)
[2017-09-09] MEDS ORDERED: MULTIVITAMINS1 EAC9 PO (18:51)
[2017-09-09 19:02] LABS: PT 11.3 SEC (9.4-12.5); PTT 29 SEC (25-37)
--- NOTE | 2017-09-09 19:04 | RADIOLOGY REPORT ---
EXAMINATION: XR CHEST CLINICAL INFORMATION: Chest pain. COMPARISON: None TECHNIQUE: 2 views of the chest were obtained. FINDINGS: No significant abnormality is noted involving the heart, lungs, mediastinum, bony thorax or soft tissues. IMPRESSION: No acute abnormality of chest.
--- NOTE | 2017-09-09 19:48 | History & Physical ---
Tevin Martin 09/09/171946: General Information and HPI MD Statement: I have seen and personally examined RONNY SAMANO and documented this H&P. The patient is a 61 year old M who presented with a patient stated chief complaint of [chest discomfort and palpitation]. Source of Information: patient, family Exam Limitations: no limitations History of Present Illness: The patient is a 61 years old gentleman who has a PMHx of HTN, Afib, Crohn's Dx (and recent lower GI bleeding), nephrolithiasis, and HLP, has come to the ED for evaluation of chest discomfort and palpitaion. He reports that he was relatively fine till last night 22:00 that he felt indigestion and palpitation while he was watching TV. He had no chest pain, sweating, SOB, or numbness. He then went to sleep. This morning when he was at work during some physical activity he felt palpitaion, dizziness, weakness, and also lightheadedness. He had no chest pain, SOB, sweating, or chills. He had cough. This evening at 17:30 she talked to his who is a nurse at , and she brought him to the ED for more evaluation. In the ED her HR was around 160s (then decresed to 110s), and ECG showed Afib. Recently he was admitted here for lower GI bleeding. He also had Afib two years ago. He was visited by Dr. Sandoval, and was placed on anticoagulation back then, which was stopped later. He had a stress test around 3 years ago which had normal results. There was a concern for VRE for this patient. 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 ECG: shows Afib, his ECG on 07/02/2017 was normal sinus rythem. Allergies/Medications Allergies: Coded Allergies: No Known Allergies (09/09/17) Home Med list Amlodipine Besylate 5 MG TABLET 1 TAB PO DAILY HEART (Reported) Atenolol 50 MG TABLET 1 TAB PO DAILY HEART (Reported) Lisinopril 20 MG TABLET 1 TAB PO DAILY HEART (Reported) Multiple Vitamin (Multivitamins) 1 EACH TABLET 1 TAB PO QPM SUPPLEMENT ( Reported) Pantoprazole Sodium (Protonix) 40 MG TABLET.DR 1 TAB PO DAILY GI PPX . Pravastatin Sodium 40 MG TABLET 1 TAB PO QPM CHOLESTEROL (Reported) Compliance With Home Meds: GOOD Past History Travel History Traveled to [place] past 21 day No Medical History Neurological: NONE EENT: NONE Cardiovascular: AFIB (2010- chem cardiovert-> NSR), hypertension, hyperlipidemia Respiratory: NONE Gastrointestinal: Crohn's disease, lower GI bleed (? 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 FH: brain aneurysm FATHER (OBS). , Age 89; Cause: Fall. FH: HTN (hypertension) 1ST COUSIN (Crohn's disease). Psychosocial History Who Do You Live With? spouse Services at Home: None Primary Language: Belarusian ETOH Use: occasional use Illicit Drug Use: denies illicit drug use Living Will? 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 Ambulation: independent IADLs Independent: shopping, housework, finances, food prep, telephone, transportation , medication admin. Review of Systems Review of Systems Constitutional: Reports: see HPI. Denies: chills, diaphoresis, fever. EENTM: Reports: see HPI. Cardiovascular: Reports: see HPI, palpitations. Denies: chest pain. Respiratory: Reports: see HPI. Denies: short of breath. GI: Reports: no symptoms, see HPI. Genitourinary: Reports: no symptoms, see HPI. Musculoskeletal: Reports: see HPI. Skin: Reports: see HPI. Neurological/Psychological: Reports: see HPI, anxiety. Hematologic/Endocrine: Reports: see HPI. Immunologic/Allergic: Reports: see HPI. Exam & Diagnostic Data Last 24 Hrs of Vital Signs/I&O Vital Signs Date Time Temp Pulse Resp B/P B/P Pulse O2 O2 Flow FiO2 Mean Ox Delivery Rate 09/099 104 102/62 09/09 2041 98.3 132 16 102/62 97 Room Air 09/09 2010 104 18 110/79 Room Air 09/09 1924 Room Air 09/09 1900 110 130/105 09/09 1855 122 143/93 09/09 185 124 125/70 09/09 1819 98.3 122 20 143/93 98 Room Air Intake & Output 09/10 0800 09/10 0000 09/09 1600 Intake Total 340 Output Total Balance 340 Intake, Oral 340 Patient 177 lb Weight Weight Bed scale Measurement Method Physical Exam General Appearance Alert, Oriented X3, Cooperative, No Acute Distress Skin No Rashes, No Breakdown, No Significant Lesion Skin Temp/Moisture Exam: Warm/Dry Sepsis Skin Exam (color): Normal for Ethnicity HEENT Atraumatic, PERRLA, EOMI, Mucous Membr. moist/pink Neck Supple, No JVD, No LAD Cardiovascular Irregularly irregular HR, no murmur, tachycardic Lungs Clear to Auscultation, Normal Air Movement Abdomen Normal Bowel Sounds, Soft, No Tenderness, No Hepatospenomegaly Neurological Normal Speech, Strength at 5/5 X4 Ext, Normal Tone, Sensation Intact, Cranial Nerves 3-12 NL Extremities No Clubbing, No Cyanosis, No Edema, Normal Pulses, No Tenderness/ Swelling Vascular Normal Pulses, Pulses Symmetrical Sepsis Peripheral Pulse Location: Dorsalis Pedis Sepsis Peripheral Pulse Exam: Normal Sepsis Cap Refill Exam: <2 Sec Diagnostic Data EKG Results Afib CXR Results Nl Assessment/Plan Assessment: Mr. Samano is a 61 years old gentleman with past medical history of Afib, HTN, HLP, and Crohn's disease who is here due to chest discomfort and palpitation who was found to have Afib on his ECG. He started feeling chest discomfort from last night which he thought might be due to indigestion. He also noticed palpitation. He had same symptoms plus lightheadedness today. In his P/E a irregularly irregular heart rythem was noticed. He has a previous history of Afib. Her current symptoms were caused by Afib that had started probably from last night. At the same time we have to rule out other cardiac possibilities (ACS), for that reason we checked trops (the first one was -ve). It is prudent to have the patient on night monitor and start heparin to prevent clot formation in his atrium. It is also beneficial to do an acho for him ensure that there is no clot formed in his atrium. (first TTE then RAUL). TSH is normal in this patient which rules out the underlying hyperthyroidism. To control his HR IV metoprolol was given to him. A cardiology consult should also be placed for him. So the diagnosis of the patient is probably recurrent Afib. His [id number] score is 1 which means that fci anticoagulation could be considered for him. He also has some risk factors for ACS (HTN, HLP, Male sex, age, Crohn's disease (which is a chronic inflammatory disease)), so telemetry, ECG, and trop monitoring is helpful in his case. So we will check trops to have 3 -ves. As Ranked By This Provider Problem List: 1. Atrial fibrillation with RVR 2. Crohn's disease 3. HTN (hypertension) 4. Hyperlipidemia Core Measures/Misc (11/08) Acute Coronary Syndrome ACS Diagnosis: No Congestive Heart Failure Congestive Heart Failure Diagnosis No Cerebrovascular Accident CVA/TIA Diagnosis: No VTE (View Protocol) VTE Risk Factors Age>40 No Mechanical VTE Prophylaxis d/t N/A MechProphylax Ordered No VTE Pharm Prophylaxis d/t NA PharmProphylax ordered Sepsis (View protocol) Sepsis Present: No If YES complete Sepsis Event Note If YES complete Sepsis Event Note Juan Montgomery MD 09/09/171955: Core Measures/Misc (11/08) Sepsis (View protocol) If YES complete Sepsis Event Note If YES complete Sepsis Event Note Resident Review Statement Resident Statement: examined this patient, discussed with improvement intern, agreed with improvement intern, reviewed EMR data (avail) Other Findings: History of present illness Man with past medical history of hypertension, hyperlipidemia, paroxysmal atrial fibrillation, nephrolithiasis, Crohn's disease, and recent lower GI bleed seen for evaluation of chest pain and palpitations. Patient reports around 10 PM last evening substernal nonradiating chest pressure with associated palpitations while at rest watching television. He tried nothing to make it better and nothing made it worse. He awoke this morning with mild residual symptoms. He ate breakfast and went to work and felt "weird". 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 He had intermittent episodes of lightheadedness and weakness throughout the day and developed a dry cough. He returned home where his whom is an RN took his heart rate and found it to be elevated to the 160s for which she took her to the [place] ED for evaluation. Review of systems He otherwise denies any fever, chills, vision changes, chest pain, shortness of breath, abdominal pain, nausea, vomiting, diarrhea, numbness, tingling, weakness , or sweating. Objective Vitals - Temp 98.3, HR 110-124, RR 20, BP 125-143/70-105, O2 98% on room air Physical Exam -General: well developed, thin middle aged man in no acute distress -HEENT: NCAT, PERRL, EOMI, anicteric sclera, MMM -Neck: Supple, no JVD, trachea midline, no carotid bruit -Cardio: Normal S1/S2 w/o m/g/r; irregularly irregular, tachycardic -Pulm: CTA bilaterally -Abdomen: Soft, NT, ND, BS+ -Neuro: Awake and alert, CN II-XII grossly intact -Extremities: normal pulses, no edema Labs / Imaging / Studies -CBC: WBC 7.2, HGB 13.5, HCT 41.0, PLT 339 -BMP: Na 140, K 4.1, Cl 103, CO2 26, BUN 22, Cr 1.0, AG 11, Glu 107 -LFT: within normal limits -Misc: D-Dimer negative, troponin I < 0.01, INR 1.04, TSH 3.96 -CXR: no acute abnormality of the chest -EKG 07/02/17: normal sinus rhythm -EKG 09/09/17: atrial fibrillation with rapid ventricular response -Echo: none available -Exercise stress test (2016): reportedly normal Assessment 61 year old man with multiple medical problems significant for paroxsysmal AFib, hypertension, hyperlipidemia, and crohns disease seen for evaluation of chest discomfort, heartburn, and palpitations found to be in AFib with RVR. Patient currently complains of mild chest discomfort with heartburn and palpitations. Vitals signs are significant only for tachycardia. Examination is remarkable only for an irregularly irregular rhythm. Labs including CBC, BMP, LFTs, troponin, D-dimer, and TSH are within normal limits or negative. CXR is unremarkable. EKG demonstrates afib with RVR. Patient was started on intravenous heparin in the ED and received 5 mg IV metorprolol. Clinically patient appears to have had a recurrence of his previously known paroxsysmal atrial fibrillation. 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 Given his age, gender, hypertension, hyperlipidemia, and chronic inflammatory condition of Crohns he has an increased risk for an acute coronary event for which ACS must be considered. Patient is being admitted to the telemetry floor for telemetry monitoring, serial troponin / EKG, echocardiogram, intravenous anticoagulation, rate control, cardiology consultation, and possible RAUL/cardioversion. Problem List -Recurrent paroxysmal atrial fibrillation with rapid ventricular response -Recent hospitalization for lower GI diverticular bleed -Hypertension -Hyperlipidemia -Nephrolithiasis -Crohn's disease Plan -Admit to telemetry floor -Telemetry monitoring -Heparin GGT -Guaic all stools -Standard contact precautions for VRE -Start metoprolol tartrate 25 mg p.o. twice daily -Give additional metoprolol tartrate 5 mg IV if rate remains elevated -Hold atenolol -Continue home meds: amlodipine, lisinopril, multivitamins, PPI, pravastatin -Consult with cardiology for recurrent atrial fibrillation -Consider GI evaluation of safety of long-term anti-coagulation if GI bleeding occurs -Trend troponin/EKG until peak or 3 negative sets -Transthoracic echocardiogram -Pain control with acetaminophen -Regular diet, n.p.o. after midnight for possible RAUL/cardioversion in morning -DVT prophylaxis with heparin GGT -Full code Augustine Sanderson MD 09/09/17 2353: Core Measures/Misc (11/08) Sepsis (View protocol) If YES complete Sepsis Event Note If YES complete Sepsis Event Note Attending MD Review Statement Attending Statement Attending MD Statement: examined this patient, discuss w/resident/PA/INFORMATION CLERK, agreed w/resident/PA/INFORMATION CLERK, reviewed EMR data (avail) Attending Assessment/Plan: 61M PMH HTN, HLD, paroxysmal A. fib (now in sinus), renal stones, Crohn's disease with recent exacerbation in June 2017 found after lower GI bleed with colonoscopy showing inflammation, presenting today with 2 days of dyspnea on exertion, left sided chest pressure, and palpitations, found to be in rapid atrial fibrillation with RVR at a rate of 160. He had been diagnosed with atrial fibrillation in the past, was on Coumadin for 6 months, was continuously found to be in NSR so anti-coagulation was stopped. Was given multiple doses of IV Cardizem in ER with improvement in HR and symptoms greatly improved. He currently only complains of mild palpitations. No neurological symptoms. Labs and CXR negative. No ST/T changes on EKG. No signs of melena, bloody stool, abdominal discomfort, or any other active Crohn's signs. 1. Rapid atrial fibrillation with RVR 2. Dyspnea on exertion 3. Crohn's disease Plan - Admit to telemetry - Metoprolol 25mg PO BID with 5mg IV pushes PRN, if persistent RVR then Cardizem drip - Heparin drip per cardiology - Monitor CBC - GI consult only if Hgb drop or change in stool - Continue home medications - Serial troponin and EKG - Echocardiogram
[2017-09-09 20:41] VITALS: BP 102/62
--- NOTE | 2017-09-09 23:56 | Admission Certification ---
Admission Certification Certification Statement - As attending physician, I certify that at the time of - admission, based on clinical presentation, severity of - symptoms, need for further diagnostic testing and - therapeutic interventions, and risk of adverse outcomes - without in-hospital treatment, in my clinical assessment, - this patient requires an acute hospital stay for a minimum - of two nights or longer. I have also considered psychsocial - factors such as support system, advanced age, financial - issues, cognitive issues, and failed out-patient treatments, - past re-admission history, safety of patient, and lack of - compliance as applicable. Specific rationale supporting this admission is: Symptomatic rapid atrial fibrillation with RVR and recent history of lower GI bleed secondary to Crohn's
[2017-09-10 01:31] LABS: PTT 94 SEC (25-37)
[2017-09-10 06:32] VITALS: BP 90/62
--- NOTE | 2017-09-10 07:19 | PN- Housestaff ---
Kristian Vera 09/10/1718: Subjective Follow-up For: Atrial fibrillation with RVR Tele-Events Since Last Visit: Overnight patient in A. fib from rate of 97-120 Subjective: Patient seen seated comfortably next to the bed. His is there in the room as well. They report that yesterday the patient started having palpitations, and upon arrival to the ED was noted to be in atrial fibrillation. The patient has had paroxysmal atrial fibrillation before, last occurring 4 years ago, when the patient spontaneously converted back to sinus rhythm. The patient has been asymptomatic and in sinus to his knowledge since then. Patient complained of chest pain as well with the palpitations, but overnight troponins were negative. Patient has history of Crohn's disease, and was here in June for GI bleed reportedly related to diverticulosis. As the patient will need to be on anticoagulation for atrial fibrillation, he was encouraged to report any new onset abdominal pain or bleeding. Review of Systems Constitutional: Denies: fever, weakness. EENTM: Denies: visual changes. Cardiovascular: Reports: palpitations. Denies: edema. Respiratory: Denies: cough, orthopnea, short of breath. Gastrointestinal: Denies: abdominal pain, nausea, vomiting. Objective Last 24 Hrs of Vital Signs/I&O Vital Signs Date Time Temp Pulse Resp B/P B/P Pulse O2 O2 Flow FiO2 Mean Ox Delivery Rate 09/10 0632 98.2 112 18 90/62 97 Room Air 09/09 2259 104 102/62 09/09 2041 98.3 132 16 102/62 97 Room Air 09/09 2010 104 18 110/79 Room Air 09/09 1924 Room Air 09/09 1900 110 130/105 09/09 1855 122 143/93 09/09 1855 124 125/70 09/09 1819 98.3 122 20 143/93 98 Room Air Intake & Output 09/10 0800 09/10 0000 09/09 1600 Intake Total 188.8 340 Output Total Balance 188.8 340 Intake, IV 188.8 Intake, Oral 340 Patient 80.087 kg Weight Weight Bed scale Measurement Method Physical Exam General Appearance: Alert, Oriented X3, Cooperative, No Acute Distress HEENT: Atraumatic, PERRLA, EOMI Neck: Supple, No JVD, No thryomegaly Cardiovascular: Normal S1, Normal S2, No Murmurs, Tachycardic, irregular Lungs: Clear to Auscultation Abdomen: Normal Bowel Sounds, Soft, No Tenderness Current Medications: Current Medications Sig/Malvin Start time Last Medication Dose Route Stop Time Status Admin Acetaminophen 650 MG Q6P PRN 09/09 2100 AC PO Amlodipine Besylate 5 MG DAILY 09/10 0900 AC PO Atenolol 50 MG DAILY 09/10 0900 CAN PO Heparin Sodium 4,000 UNIT ONCE ONE 09/09 1914 DC 09/09 (Porcine) IV 09/10 1915 1924 Heparin Sodium 25,000 UNIT Q24H 09/09 1914 AC 09/09 (Porcine) IV 1920 Sodium Chloride 500 ML Heparin Sodium 0 .STK-MED ONE 09/09 1912 DC (Porcine) .ROUTE Lisinopril 20 MG DAILY 09/10 0900 AC PO Metoprolol Tartrate 25 MG BID 09/09 2099 AC 09/09 PO 2259 Metoprolol Tartrate 0 .STK-MED ONE 09/09 185 DC IV Metoprolol Tartrate 5 MG ONCE ONE 09/09 1830 DC 09/09 IV 09/09 183 1855 Multivitamins 1 TAB QPM 09/09 2100 AC 09/09 Therapeutic PO 2259 Omeprazole 40 MG DAILY AC 09/10 0700 AC 09/10 PO 0640 Pravastatin Sodium 20 MG 1700 09/10 1700 AC PO Last 24 Hrs of Lab/Mateo Results Last 24 Hrs of Labs/Mics: Laboratory Tests 09/10/17 0700: Sodium Pending, Potassium Pending, Chloride Pending, Carbon Dioxide Pending, Anion Gap Pending, BUN Pending, Creatinine Pending, BUN/Creatinine Ratio Pending , Magnesium Pending, Troponin I Pending, APTT Pending, CBC w Diff Pending, WBC Pending, RBC Pending, Hgb Pending, Hct Pending, MCV Pending, MCH Pending, MCHC Pending, RDW Pending, Plt Count Pending, MPV Pending 09/10/17 0050: Troponin I < 0.01, APTT 94 H 09/09/17 183: Anion Gap 11, Estimated GFR > 60, BUN/Creatinine Ratio 22.0, Glucose 107 H, Calcium 9.2, Magnesium 2.1, Total Bilirubin 0.8, AST 33, ALT 51, Alkaline Phosphatase 40, Troponin I < 0.01, Total Protein 7.2, Albumin 4.3, Globulin 2.9, Albumin/Globulin Ratio 1.5, TSH 3.960, PT 11.3, INR 1.04, APTT 29, D-Dimer High Sensitivty < 200, CBC w Diff NO MAN DIFF REQ, RBC 4.82, MCV 85.0, MCH 28.1, MCHC 33.0, RDW 13.1, MPV 7.7, Gran % 55.4, Lymphocytes % 27.2, Monocytes % 13.8 H, Eosinophils % 3.1, Basophils % 0.5, Absolute Granulocytes 4.0, Absolute Lymphocytes 2.0, Absolute Monocytes 1.0 H, Absolute Eosinophils 0.2, Absolute Basophils 0 09/09/17 1824: TSH Cancelled Assessment/Plan Assessment: 61-year-old male with PMH of hypertension, hyperlipidemia, paroxysmal A. fib, Crohn's disease, presenting for palpitations with chest pain and tachycardia, found to be in atrial fibrillation. 1. Atrial fibrillation with RVR daily ordered to confirm this rhythm he may be followed up as an outpatient. 2. Hypertension 3. History of GI bleed is in remission for moment Problem List: 1. Atrial fibrillation with RVR 2. Hyperlipidemia 3. HTN (hypertension) 4. Crohn's disease Pain Ratin Pain Location: none Pain Goal: Remain pain free Pain Plan: per pathway Tomorrow's Labs & Rationales: CBC & BEP Tracy Houston MD 09/10/17 1031: Attending MD Review Statement Attending Statement Attending MD Statement: examined this patient, discuss w/resident/PA/BOOK CLEANER, agreed w/resident/PA/BOOK CLEANER, reviewed EMR data (avail), discussed with nursing, discussed with case mgmt, reviewed images Attending Assessment/Plan: 61-year-old male past medical history of Crohn's disease, previous atrial fibrillation on anticoagulation in the past who is here with palpitations and new onset rapid atrial fibrillation. Overnight he was started on a beta-catalina and on heparin. I spoke to Dr. Duarte, his blood pressure is on the low side and will stop his Norvasc and his lisinopril and keep the metoprolol. Will have him on heparin overnight and watch his crit and his heart rate. If stable then the plan will be oral Eliquis in the morning.
[2017-09-10 08:01] LABS: ABSOLUTE BASOPHIL COUNT 0 /CUMM (0.0-0.2); ABSOLUTE EOSINOPHIL COUNT 0.2 /CUMM (0.0-0.7); ABSOLUTE GRANULOCYTE CT 3.4 /CUMM (1.4-6.5); ABSOLUTE LYMPH COUNT 1.6 /CUMM (1.2-3.4); ABSOLUTE MONOCYTE COUNT 0.6 /CUMM (0.10-0.60); BASOPHIL % 0.7 % (0.0-2.0); EOSINOPHIL % 2.9 % (0-5); GRANULOCYTE % 58.9 % (42.2-75.2); HEMATOCRIT 38.2 % (42-52); MEAN CORPUSCULAR HGB 28.8 PG (27.0-31.0); MEAN CORPUSCULAR VOLUME 84.6 FL (80.0-94.0); MEAN PLATELET VOLUME 8.1 FL (7.4-10.4); PLATELET COUNT 277 /CUMM (130-400); RED BLOOD CELL CT 4.51 /CUMM (4.70-6.10); WHITE BLOOD CELL COUNT 5.9 /CUMM (4.8-10.8)
[2017-09-10 08:55] LABS: PTT 61 SEC (25-37)
[2017-09-10 14:33] VITALS: BP 98/62
--- NOTE | 2017-09-10 15:07 | Cons- Cardiology ---
General Information and HPI Consulting Request Date of Consult: 09/10/17 Requested By: Tracy Houston MD Reason for Consult: Paroxysmal atrial fibrillation of recent onset Source of Information: patient, family Exam Limitations: no limitations History of Present Illness: The patient is a 61-year-old male who is followed by Dr. 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 His past medical history is remarkable for hypertension, atrial fibrillation, Crohn's disease with recent lower GI bleeding, kidney stones and hyperlipidemia. The patient presented to the emergency room yesterday with complaints of palpitations and chest discomfort. The patient was reportedly doing well until Wednesday evening when he felt indigestion and palpitations while watching TV. No other overt cardiac symptoms were noted. The patient went to bed, and stayed home until the subsequent evening on when he ultimately came to the emergency room. In the emergency room, the patient was in atrial fibrillation with a heart rate of 150- 160. He was in atrial fibrillation at that time. The patient was treated with IV heparin and admitted to the hospital for further monitoring. According to the patient, he had atrial fibrillation 2 years ago. At that time, he reverted to sinus rhythm without intervention. He was treated with anticoagulation for several months but this was ultimately stopped. Allergies/Medications Allergies: Coded Allergies: No Known Allergies (09/09/17) Home Med List: Amlodipine Besylate 5 MG TABLET 1 TAB PO DAILY HEART (Reported) Atenolol 50 MG TABLET 1 TAB PO DAILY HEART (Reported) Lisinopril 20 MG TABLET 1 TAB PO DAILY HEART (Reported) Multiple Vitamin (Multivitamins) 1 EACH TABLET 1 TAB PO QPM SUPPLEMENT ( Reported) Pantoprazole Sodium (Protonix) 40 MG TABLET.DR 1 TAB PO DAILY GI PPX . Pravastatin Sodium 40 MG TABLET 1 TAB PO QPM CHOLESTEROL (Reported) Current Medications: Current Medications Sig/Malvin Start time Last Medication Dose Route Stop Time Status Admin Acetaminophen 650 MG Q6P PRN 09/09 2100 AC PO Amlodipine Besylate 5 MG DAILY 09/10 0900 DC PO Apixaban 5 MG BID 09/10 1308 AC PO Atenolol 50 MG DAILY 09/10 0900 CAN PO Heparin Sodium 4,000 UNIT ONCE ONE 09/09 1914 DC 09/09 (Porcine) IV 09/10 1915 192 Heparin Sodium 25,000 UNIT Q24H 09/09 1914 DC 09/09 (Porcine) IV 1920 Sodium Chloride 500 ML Heparin Sodium 0 .STK-MED ONE 09/09 191 DC (Porcine) .ROUTE Lisinopril 20 MG DAILY 09/10 0900 DC PO Metoprolol Tartrate 50 MG BID 09/10 2100 AC PO Metoprolol Tartrate 25 MG ONCE ONE 09/10 1215 DC 09/10 PO 09/10 1216 1252 Metoprolol Tartrate 25 MG BID 09/09 2100 DC 09/10 PO 0933 Metoprolol Tartrate 0 .STK-MED ONE 09/09 1850 DC IV Metoprolol Tartrate 5 MG ONCE ONE 09/09 1830 DC 09/09 IV 09/09 1831 1855 Multivitamins 1 TAB QPM 09/09 2100 AC 09/09 Therapeutic PO 2259 Omeprazole 40 MG DAILY AC 09/10 0700 AC 09/10 PO 0640 Pravastatin Sodium 20 MG 1700 09/10 1700 AC PO Sodium Chloride 1,000 ML Q10H 09/10 0900 AC 09/10 IV 0815 Sodium Chloride 1,000 ML Q13H 09/10 0800 DC 09/10 IV 0815 Past History Travel History Traveled to [place] past 21 day No Medical History Neurological: NONE EENT: NONE Cardiovascular: AFIB (2010- chem cardiovert-> NSR), hypertension, hyperlipidemia Respiratory: NONE Gastrointestinal: Crohn's disease, lower GI bleed (? ileum, dxd 20's, asx x yrs) Hepatic: NONE Renal: renal cysts Musculoskeletal: HERNIA-UMBILICAL INQUINAL HERNIA Psychiatric: NONE Endocrine: NONE Blood Disorders: NONE Cancer(s): NONE MECHANIC WELDER/Reproductive: NONE Surgical History Surgical History: hernia repair-inguinal (B/L), hernia repair-umbilical Family History Relations & Conditions If Any: MOTHER, , Age 83; Cause: At risk for intracranial bleeding. FH: brain aneurysm FATHER (OBS). , Age 89; Cause: Fall. FH: HTN (hypertension) 1ST COUSIN (Crohn's disease). Psychosocial History Who Do You Live With? spouse Services at Home: None Primary Language: Djib[place]ian Smoking Status: Never Smoked ETOH Use: occasional use Illicit Drug Use: denies illicit drug use Living Will? no Power of Tool Filer/HCP? yes Name of POA/HCP: pt's , Karine Fisher Kimi RN Functional Ability ADLs Independent: dressing, eating, toileting, bathing. Ambulation: independent IADLs Independent: shopping, housework, finances, food prep, telephone, transportation , medication admin. Exam & Diagnostic Data Vital Signs and I&O Vital Signs Date Time Temp Pulse Resp B/P B/P Pulse O2 O2 Flow FiO2 Mean Ox Delivery Rate 09/10 1433 97.6 125 20 98/62 96 Room Air 09/10 1252 136 100/60 09/10 0933 131 102/74 09/10 0632 98.2 112 18 90/62 97 Room Air 09/09 2259 104 102/62 09/09 2041 98.3 132 16 102/62 97 Room Air 09/09 2010 104 18 110/79 Room Air 09/09 1924 Room Air 09/09 1900 110 130/105 09/09 1855 122 143/93 09/09 1855 124 125/70 09/09 1819 98.3 122 20 143/93 98 Room Air Intake & Output 09/10 1600 09/10 0800 09/10 0000 09/09 1600 09/09 0800 09/09 0000 Intake Total 188.8 340 Output Total Balance 188.8 340 Intake, IV 188.8 Intake, Oral 340 Patient 177 lb Weight Weight Bed scale Measurement Method Labs/Mateo Results: Laboratory Tests 09/10 09/10 0700 0050 Chemistry Sodium (137 - 145 mmol/L) 141 Potassium (3.5 - 5.1 mmol/L) 4.5 Chloride (98 - 107 mmol/L) 105 Carbon Dioxide (22 - 30 mmol/L) 23 Anion Gap (5 - 16) 12 BUN (9 - 20 mg/dL) 20 Creatinine (0.7 - 1.2 mg/dL) 0.9 Estimated GFR (>60 ml/min) > 60 BUN/Creatinine Ratio (7 - 25 %) 22.2 Magnesium (1.6 - 2.3 mg/dL) 2.3 Troponin I (<0.11 ng/ml) < 0.01 < 0.01 Coagulation APTT (25 - 37 SEC) 61 H 94 H Hematology CBC w Diff NO MAN DIFF REQ WBC (4.8 - 10.8 /CUMM) 5.9 RBC (4.70 - 6.10 /CUMM) 4.51 L Hgb (14.0 - 18.0 G/DL) 13.0 L Hct (42 - 52 %) 38.2 L MCV (80.0 - 94.0 FL) 84.6 MCH (27.0 - 31.0 PG) 28.8 MCHC (33.0 - 37.0 G/DL) 34.0 RDW (11.5 - 14.5 %) 13.0 Plt Count (130 - 400 /CUMM) 277 MPV (7.4 - 10.4 FL) 8.1 Gran % (42.2 - 75.2 %) 58.9 Lymphocytes % (20.5 - 51.1 %) 27.4 Monocytes % (1.7 - 9.3 %) 10.1 H Eosinophils % (0 - 5 %) 2.9 Basophils % (0.0 - 2.0 %) 0.7 Absolute Granulocytes (1.4 - 6.5 /CUMM) 3.4 Absolute Lymphocytes (1.2 - 3.4 /CUMM) 1.6 Absolute Monocytes (0.10 - 0.60 /CUMM) 0.6 Absolute Eosinophils (0.0 - 0.7 /CUMM) 0.2 Absolute Basophils (0.0 - 0.2 /CUMM) 0 09/09 09/09 1837 1824 Chemistry Sodium (137 - 145 mmol/L) 140 Potassium (3.5 - 5.1 mmol/L) 4.1 Chloride (98 - 107 mmol/L) 103 Carbon Dioxide (22 - 30 mmol/L) 26 Anion Gap (5 - 16) 11 BUN (9 - 20 mg/dL) 22 H Creatinine (0.7 - 1.2 mg/dL) 1.0 Estimated GFR (>60 ml/min) > 60 BUN/Creatinine Ratio (7 - 25 %) 22.0 Glucose (65 - 99 mg/dL) 107 H Calcium (8.4 - 10.2 mg/dL) 9.2 Magnesium (1.6 - 2.3 mg/dL) 2.1 Total Bilirubin (0.2 - 1.3 mg/dL) 0.8 AST (17 - 59 U/L) 33 ALT (21 - 72 U/L) 51 Alkaline Phosphatase (< 127 U/L) 40 Troponin I (<0.11 ng/ml) < 0.01 Total Protein (6.3 - 8.2 g/dL) 7.2 Albumin (3.5 - 5.0 g/dL) 4.3 Globulin (1.9 - 4.2 gm/dL) 2.9 Albumin/Globulin Ratio (1.1 - 2.2 %) 1.5 TSH (0.270 - 4.200 uIU/mL) 3.960 Cancelled Coagulation PT (9.4 - 12.5 SEC) 11.3 INR (0.90 - 1.17) 1.04 APTT (25 - 37 SEC) 29 D-Dimer High Sensitivty (0 - 243 ng/ml) < 200 Hematology CBC w Diff NO MAN DIFF REQ WBC (4.8 - 10.8 /CUMM) 7.2 RBC (4.70 - 6.10 /CUMM) 4.82 Hgb (14.0 - 18.0 G/DL) 13.5 L Hct (42 - 52 %) 41.0 L MCV (80.0 - 94.0 FL) 85.0 MCH (27.0 - 31.0 PG) 28.1 MCHC (33.0 - 37.0 G/DL) 33.0 RDW (11.5 - 14.5 %) 13.1 Plt Count (130 - 400 /CUMM) 339 MPV (7.4 - 10.4 FL) 7.7 Gran % (42.2 - 75.2 %) 55.4 Lymphocytes % (20.5 - 51.1 %) 27.2 Monocytes % (1.7 - 9.3 %) 13.8 H Eosinophils % (0 - 5 %) 3.1 Basophils % (0.0 - 2.0 %) 0.5 Absolute Granulocytes (1.4 - 6.5 /CUMM) 4.0 Absolute Lymphocytes (1.2 - 3.4 /CUMM) 2.0 Absolute Monocytes (0.10 - 0.60 /CUMM) 1.0 H Absolute Eosinophils (0.0 - 0.7 /CUMM) 0.2 Absolute Basophils (0.0 - 0.2 /CUMM) 0 Diagnostic Data EKG Results Atrial fibrillation with suboptimal rate control and nonspecific ST-T changes CXR Results FINDINGS: No significant abnormality is noted involving the heart, lungs, mediastinum, bony thorax or soft tissues. IMPRESSION: No acute abnormality of chest. Assessment/Plan Assessment/Plan Assessment: 1. Paroxysmal atrial fibrillation of uncertain duration, probably less than 48 hours 2. Atypical chest discomfort 3. History of hypertension 4. History of hyperlipidemia 5. History of Crohn's disease with recent lower GI bleed (diverticular). 6. History of kidney stone Recommendations: -For now, continue IV heparin and eventually transitioned to Eliquis 5 mg twice daily -The patient is currently on metoprolol, increased to 50 mg twice daily. -Amlodipine and lisinopril on hold due to borderline blood pressure -Continue gentle IV fluid hydration -Optimize rate control. If necessary, increase metoprolol to 75 mg twice daily in the morning. Once patient's heart rate is well controlled, if he remains asymptomatic he can be discharged home for follow-up with Dr. Sandoval in the office as an outpatient. If the patient does not revert to sinus rhythm spontaneously, elective RAUL/cardioversion can be arranged as an outpatient. -Discussed in detail with the patient and his . Consult Acknowledgment - Thank you for your consult request.
[2017-09-10 16:00] VITALS: BP 98/60
--- NOTE | 2017-09-10 18:35 | ECHOCARDIOGRAM REPORT ---
RONNY SAMANO Age: 61 : 1955 Gender: M Exam Date: 09/10/2017 08:49 Exam Location: 1 [address] Ht (in): 71 Wt (lb): 175 BSA: 2.00 BP: 90 / 62 Ordering Physician: Juan Montgomery MD Referring Physician: Juan Montgomery MD Technologist: Maciej Heard [facility] Room Number: 171 Indications: Paroxysmal atrial fibrillation Rhythm: Atrial fibrillation Technical Quality: fair FINDINGS Left Ventricle Normal size left ventricle. Normal left ventricular wall thickness. Normal left ventricular ejection fraction visually estimated at > 60%. No obvious regional wall motion abnormalities. Right Ventricle Normal right ventricular size and function. Right Atrium Normal right atrial size. Left Atrium Normal left atrial size. Mitral Valve Mild mitral annular calcification. Trace mitral regurgitation. Aortic Valve Diffuse thickening (sclerosis) of the aortic valve cusps without reduced excursion. No aortic stenosis. No aortic regurgitation. Tricuspid Valve Tricuspid valve not well visualized, grossly normal. Trace tricuspid regurgitation. No evidence of pulmonary hypertension. Pulmonic Valve Pulmonic valve not well visualized, grossly normal. Trace pulmonic regurgitation. Pericardium No pericardial effusion. Great Vessels Normal size aortic root. CONCLUSIONS Normal size left ventricle. Normal left ventricular ejection fraction visually estimated at > 60%. Trace mitral regurgitation. Trace tricuspid regurgitation. Trace pulmonic regurgitation. Dannie Sandoval M.D. (Electronically Signed) Final Date: 10 September 2017 18:32 MEASUREMENTS (Male / Female) Normal Values 2D ECHO LV Diastolic Diameter PLAX 4.2 cm 4.2 - 5.9 / 3.9 - 5.3 cm LV Systolic Diameter PLAX 3.0 cm 2.1 - 4.0 cm LV Fractional Shortening PLAX 28.6 % 25 - 46 % LV Ejection Fraction 2D Teich 55.5 % IVS Diastolic Thickness 1.0 cm LVPW Diastolic Thickness 1.0 cm LV Relative Wall Thickness 0.5 LVOT Diameter 2.2 cm Aortic Root Diameter 3.0 cm LA Systolic Diameter LX 3.4 cm 3.0 - 4.0 / 2.7 - 3.8 cm LV Ejection Fraction MOD BP 64.7 % >= 55 % LV Cardiac Index MOD BP 2640.5 cm/min LV Diastolic Length 4C 6.9 cm 6.9 - 10.3 cm LV Diastolic Area 4C 24.8 cm LV Diastolic Volume MOD 4C 73.0 cm LV Ejection Fraction MOD 4C 63.0 % LV Stroke Volume MOD 4C 46.0 cm LV Cardiac Index MOD 4C 2760.5 cm/min LV Systolic Length 4C 6.3 cm LV Systolic Area 4C 14.1 cm LV Systolic Volume MOD 4C 27.0 cm LV Ejection Fraction MOD 2C 65.5 % LV Cardiac Index MOD 2C 2280.4 cm/min LV Diastolic Volume 4C AL 75.7 cm 85 - 139 / 69 - 109 cm LV Systolic Volume 4C AL 27.0 cm LV Ejection Fraction 4C AL 64.3 % LV Stroke Volume 4C AL 48.6 cm LV Cardiac Index 4C AL 2917.6 cm/min LV Ejection Fraction 2C AL 68.7 % LV Cardiac Index 2C AL 2473.7 cm/min DOPPLER AV Peak Velocity 128.0 cm/s AV Peak Gradient 6.6 mmHg LVOT Peak Velocity 85.9 cm/s LVOT Peak Gradient 3.0 mmHg AV Area Cont Eq pk 2.6 cm Mitral E Point Velocity 93.8 cm/s MV Deceleration Time 144.0 ms TV Peak Velocity 218.0 cm/s PV Peak Velocity 71.1 cm/s PV Peak Gradient 2.0 mmHg
[2017-09-10 23:00] VITALS: BP 102/60
[2017-09-11 06:30] VITALS: BP 118/76
[2017-09-11 08:21] VITALS: BP 140/80
--- NOTE | 2017-09-11 08:29 | PN- Att Addend ---
Attending Addendum Attending Brief Note Patient seen and examined. He feels well. He converted to sinus yesterday, his heart rate is stable in the 60s. His is at the bedside with him. On exam temperature is 98.6, blood pressure is 130/70, breathing at 16-18, afebrile and heart rate is 60-75. Awake alert oriented, lungs are clear to auscultation, heart is S1-S2 regular, abdomen is soft nontender no hepatosplenomegaly. 61-year-old past medical history of Crohn's disease who is here with new onset atrial fibrillation. He was started on metoprolol and we increased it to 50 twice daily. His heart rate is normal and he has converted and he is on Eliquis as per cardiology. I spoke to him and his at length about the bleeding risk with cardiology and the need for close outpatient follow-up with regard to his A. fib. He is going to leave today off the Norvasc and the lisinopril on the metoprolol and Eliquis with close outpatient follow-up.
[2017-09-11] MEDS ORDERED: ELIQUIS5 M1 PO (08:30)
[2017-09-11] MEDS ORDERED: METOPROLOL TART50 M1 PO (08:30)
--- NOTE | 2017-09-11 08:32 | Patient Discharge Instructions ---
Discharge Instructions General Discharge Information Special Instructions: Please follow up with the drug department worker within 7 days, we have provided you with a referral. Please follow up with your primary care physician within 7 days. Acute Coronary Syndrome Inclusion Criteria At DC or during hospital stay patient has or had the following: ACS DIAGNOSIS No Discharge Core Measures Meds if any: Prescribed or Continued at Discharge Meds if any: NOT Prescribed or Continued at Discharge Congestive Heart Failure Inclusion Criteria At DC or during hospital stay patient has or had the following: CHF DIAGNOSIS No Discharge Core Measures Meds if any: Prescribed or Continued at Discharge Meds if any: NOT Prescribed or Continued at Discharge Cerebrovascular accident Inclusion Criteria At DC or during hospital stay patient has or had the following: CVA/TIA Diagnosis No Discharge Core Measures Meds if any: Prescribed or Continued at Discharge Meds if any: NOT Prescribed or Continued at Discharge Venous thromboembolism Inclusion Criteria VTE Diagnosis No VTE Type NONE VTE Confirmed by (Test) NONE Discharge Core Measures - Per Current guidelines, there needs to be overlap - treatment for the first 5 days of Warfarin therapy. - If discharged on Warfarin prior to 5 days of - overlap therapy, the patient will need to be - assessed for post discharge needs including - *Post discharge parental anticoagulation - *Warfarin and/or parental anticoagulation education - *Follow up date to check INR post discharge At least 5 days overlap therapy as Inpatient No Meds if any: Prescribed or Continued at Discharge Note: Overlap Therapy is Warfarin and Anticoagulant Meds if any: NOT Prescribed or Continued at Discharge
[2017-09-11 08:34] LABS: ABSOLUTE BASOPHIL COUNT 0 /CUMM (0.0-0.2); ABSOLUTE EOSINOPHIL COUNT 0.2 /CUMM (0.0-0.7); ABSOLUTE GRANULOCYTE CT 3.6 /CUMM (1.4-6.5); ABSOLUTE LYMPH COUNT 1.3 /CUMM (1.2-3.4); ABSOLUTE MONOCYTE COUNT 0.5 /CUMM (0.10-0.60); BASOPHIL % 0.4 % (0.0-2.0); HEMATOCRIT 38.2 % (42-52); MEAN CORPUSCULAR HGB 28.6 PG (27.0-31.0); MEAN CORPUSCULAR HGB CONC 33.5 G/DL (33.0-37.0); MEAN CORPUSCULAR VOLUME 85.3 FL (80.0-94.0); MEAN PLATELET VOLUME 8.1 FL (7.4-10.4); PLATELET COUNT 242 /CUMM (130-400); RBC DISTRIBUTION WIDTH 13.1 % (11.5-14.5); RED BLOOD CELL CT 4.47 /CUMM (4.70-6.10); WHITE BLOOD CELL COUNT 5.7 /CUMM (4.8-10.8)
--- NOTE | 2017-09-12 20:47 | Discharge Summary ---
Visit Information Visit Dates Admission Date: 09/09/17 Discharge Date: 09/11/17 Hospital Course Course Attending Physician: Rosemarie LYON,Tracy Rowe Primary Care Physician: Gabe LYON,Popeye Bajwa Allergies: Coded Allergies: No Known Allergies (09/09/17) Disposition Summary Disposition Principal Diagnosis: Atrial fibrillation Discharge Instructions Medications at Discharge Discharge Medications: Stop taking the following medications: Amlodipine Besylate (Amlodipine Besylate) 5 MG TABLET ORAL DAILY Qty = 90 Atenolol (Atenolol) 50 MG TABLET ORAL DAILY Qty = 90 Lisinopril (Lisinopril) 20 MG TABLET ORAL DAILY Qty = 90 Continue taking these medications: Pravastatin Sodium (Pravastatin Sodium) 40 MG TABLET 1 Tablet ORAL Every night Qty = 90 Comments: Last Taken: 09/10/17 Time: 4:50 PM Pantoprazole Sodium (Protonix) 40 MG TABLET.DR 1 Tablet ORAL DAILY Qty = 30 Instructions: . Comments: NOT GIVEN [facility] 09/11/17 AT 6:27A.M Multiple Vitamin (Multivitamins) 1 EACH TABLET 1 Tablet ORAL Every night Comments: NOT GIVEN THIS ADMISSION Start taking the following new medications: Apixaban (Eliquis) 5 MG TABLET 5 Milligram ORAL TWICE DAILY Qty = 60 No Refills Comments: Last Taken:09/11/17 Time:8:21A.M Metoprolol Tartrate (Metoprolol Tartrate) 50 MG TABLET 50 Milligram ORAL TWICE DAILY Qty = 60 No Refills Comments: Last Taken:09/11/17 Time:8:21A.M
== END 2017-09-11 09:16 | DRG 309 ==
LOC: ERH 18:13 → 1NO 19:23 → ERHI 19:23 → ENRESERV 19:43 → ENTRNSPT 20:09 → EDTRNSPTSTS 20:13 → CMPTRNSPT 20:39 → 1NO 20:45 → ENPENDDIS 09-11 08:34 → 1NO 09-11 09:16
PROVIDERS: Emergency Medicine; Internal Medicine; Internal Medicine Interventional Cardiology; Physician Assistant; Student in an Organized Health Care Education/Training Program
DX: I48.0 Paroxysmal atrial fibrillation (principal); K50.90 Crohn's disease, unspecified, without complications; I10 Essential (primary) hypertension; K21.9 Gastro-esophageal reflux disease without esophagitis; K44.9 Diaphragmatic hernia without obstruction or gangrene; E78.5 Hyperlipidemia, unspecified
CPT/HCPCS: 1NP; 36592; 71046; 82436; 93005; 93010; 93306; J1644